=== PATIENT | female | born 1945 | race Caucasian/White ===

== ENCOUNTER → 2019-10-23 15:47 | Outpatient (BNVA) | payer MEDICARE, MEDICAID, SELFPAY | PROVIDERS: Family Provider Nurse Practitioner Family; PCP Nurse Practitioner Family; Visit Provider Nurse Practitioner Family | DX: J01.90 Acute sinusitis, unspecified (principal); R05 Cough | CPT/HCPCS: 87804 ==

== ENCOUNTER → 2019-12-01 11:03 | Outpatient (BNVA) | payer MEDICARE, MEDICAID, SELFPAY | PROVIDERS: Family Provider Nurse Practitioner Family; Visit Provider Nurse Practitioner Family | DX: E11.9 Type 2 diabetes mellitus without complications (principal); I10 Essential (primary) hypertension; J30.89 Other allergic rhinitis; K21.9 Gastro-esophageal reflux disease without esophagitis; E78.2 Mixed hyperlipidemia; J30.2 Other seasonal allergic rhinitis | CPT/HCPCS: 80053; 80061; 83036; 84443; 85025 ==

== ENCOUNTER → 2020-03-16 17:15 | Outpatient (BNVA) | payer MEDICARE, MEDICAID, SELFPAY | PROVIDERS: Family Provider Nurse Practitioner Family; PCP Nurse Practitioner Family; Visit Provider Nurse Practitioner Family | DX: M54.9 Dorsalgia, unspecified (principal); R10.9 Unspecified abdominal pain; I10 Essential (primary) hypertension | CPT/HCPCS: 80053; 80061; 84443; 85025 ==

== ENCOUNTER → 2020-03-17 13:36 | Outpatient (BNVA) | payer MEDICARE, MEDICAID, SELFPAY | PROVIDERS: Family Provider Nurse Practitioner Family; PCP Nurse Practitioner Family; Visit Provider Nurse Practitioner Family | DX: R10.9 Unspecified abdominal pain (principal) | CPT/HCPCS: 87338 ==

== ENCOUNTER → 2020-09-06 09:59 | Outpatient (BNVA) | payer MEDICARE, MEDICAID, SELFPAY | PROVIDERS: Family Provider Nurse Practitioner Family; PCP Nurse Practitioner Family; Visit Provider Nurse Practitioner Family | DX: M25.551 Pain in right hip (principal); M54.5 Low back pain; M53.3 Sacrococcygeal disorders, not elsewhere classified | CPT/HCPCS: 72100; 72220; 73502 ==

== ENCOUNTER → 2020-10-27 08:25 | Outpatient (BNVA) | payer MEDICARE, MEDICAID, SELFPAY | PROVIDERS: Family Provider Nurse Practitioner Family; PCP Nurse Practitioner Family; Visit Provider Nurse Practitioner Family | DX: R73.09 Other abnormal glucose (principal); I10 Essential (primary) hypertension; E78.2 Mixed hyperlipidemia | CPT/HCPCS: 80053; 80061; 83036; 85025 ==

== ENCOUNTER → 2021-01-16 12:22 | Outpatient (BNVA) | payer MEDICARE, MEDICAID, SELFPAY | PROVIDERS: Family Provider Nurse Practitioner Family; PCP Nurse Practitioner Family; Visit Provider Internal Medicine Cardiovascular Disease | DX: I50.33 Acute on chronic diastolic (congestive) heart failure (principal); R06.02 Shortness of breath; E78.2 Mixed hyperlipidemia; I25.10 Atherosclerotic heart disease of native coronary artery without angina pectoris; I10 Essential (primary) hypertension | CPT/HCPCS: 80048; 83880 ==

== ENCOUNTER 2021-02-07 15:01 | Outpatient (CLI) | payer MEDICARE, MEDICAID, SELFPAY ==
--- NOTE | 2021-02-07 15:45 | USCV_ITS ---
Rigoberto Archana Age: 76 Gender: F : 1945 Exam Date: 02/07/2021 15:18 Ordering Phys: So Luciano MD ([email or web address]) Technologist: Nelida Deleon Exam Location: [facility] [place] Indication: CHEST PAIN BP: / HR: 74 Rhythm: Sinus Technical Quality: Adequate MEASUREMENTS (Male / Female) Normal Values 2D ECHO LV Diastolic Diameter PLAX 2.7 cm 4.2 - 5.9 / 3.9 - 5.3 cm LV Systolic Diameter PLAX 2.1 cm LV Chamber Size 2.8 cm IVS Diastolic Thickness 1.3 cm 0.6 - 1.0 / 0.6 - 0.9 cm IVS Systolic Thickness 1.3 cm LVPW Diastolic Thickness 1.4 cm 0.6 - 1.0 / 0.6 - 0.9 cm LVPW Systolic Thickness 2.1 cm RV Chamber Size 2.9 cm LVOT Diameter 2.0 cm LV Ejection Fraction 2D Teich 50.0 % LV Ejection Fraction MOD 2C 49.6 % LV Ejection Fraction 2C AL 48.9 % LA Diameter 2.8 cm LA Width 2.8 cm LA Height 4.0 cm RA Width 3.2 cm RA Height 3.1 cm M-MODE LV Diastolic Diameter MM 4.3 cm 4.2 - 5.9 / 3.9 - 5.3 cm LV Systolic Diameter MM 2.6 cm LV Ejection Fraction MM Teich 70.8 % IVS Diastolic Thickness MM 0.9 cm 0.6 - 1.0 / 0.6 - 0.9 cm IVS Systolic Thickness MM 1.7 cm LVPW Diastolic Thickness MM 1.0 cm 0.6 - 1.0 / 0.6 - 0.9 cm LVPW Systolic Thickness MM 1.6 cm Aortic Annulus Diameter 2.0 cm LA Ao Ratio MM 1.6 MV E Point Septal Separation 0.9 cm DOPPLER AV Peak Velocity 211.0 cm/s LVOT Peak Velocity 122.0 cm/s AV Area Cont Eq vti 2.1 cm squared AV Area Cont Eq pk 1.9 cm squared MV Area PHT 3.7 cm squared Mitral E to A Ratio 0.7 MV E' Velocity 41.0 cm/s Mitral E to MV E' Ratio 11.7 Mitral E to LV E' Lateral Ratio 10.6 Mitral E to LV E' Septal Ratio 13.2 TR Peak Velocity 157.3 cm/s TR Peak Gradient 9.9 mmHg TV Peak E Velocity 65.0 cm/s Right Atrial Pressure 3.0 mmHg Pulmonary Artery Systolic Pressu 12.9 mmHg PV Peak Velocity 86.0 cm/s RV Acceleration Time 0.1 s RV Ejection Time 0.3 s RV AcT/ET 0.5 FINDINGS Left Ventricle Normal left ventricular size and systolic function, EF 56 %. No regional wall motion abnormalities. Grade I/IV diastolic dysfunction (abnormal relaxation filling pattern), normal to mildly elevated filling pressures. Mild concentric left ventricular hypertrophy Right Ventricle Normal right ventricular size and systolic function. Right Atrium The right atrium is normal in size. Left Atrium The left atrium is normal in size. Mitral Valve No gross abnormalities noted Aortic Valve Aortic valve leaflets could not be visualized well. The peak velocity aortic valve is 2.24 m/s Tricuspid Valve No gross abnormalities noted Pulmonic Valve Pulmonic valve not well visualized. Pericardium Normal pericardium without effusion. Aorta Normal ascending aorta dimension. CONCLUSIONS Normal left ventricular size and systolic function, EF 56 %. No regional wall motion abnormalities. Grade I/IV diastolic dysfunction (abnormal relaxation filling pattern), normal to mildly elevated filling pressures. Mild concentric left ventricular hypertrophy The peak velocity aortic valve is 2.24 m/s. No significant stenotic or regurgitant lesions. There is no pericardial effusion. There are no intracardiac masses. Pulmonary artery systolic pressure is within normal limits. Compared to the study from 01/15/2019, the aortic valve appears to have replaced Dr So Luciano MD FAC (Electronically Signed) Final Date: 13 Feb 2021 09:04 S
== END 2021-02-07 15:02 | disposition home or self-care (01) ==
PROVIDERS: PCP Nurse Practitioner Family; Visit Provider Internal Medicine Cardiovascular Disease
DX: R07.89 Other chest pain (principal)
CPT/HCPCS: 93306

== ENCOUNTER → 2021-03-20 09:38 | Outpatient (BNVA) | payer MEDICARE, MEDICAID, SELFPAY | PROVIDERS: PCP Nurse Practitioner Family; Visit Provider Nurse Practitioner Family | DX: I10 Essential (primary) hypertension (principal); E11.9 Type 2 diabetes mellitus without complications; E78.2 Mixed hyperlipidemia; F41.9 Anxiety disorder, unspecified; R06.02 Shortness of breath; J30.2 Other seasonal allergic rhinitis; K21.9 Gastro-esophageal reflux disease without esophagitis | CPT/HCPCS: 80053; 80061; 82043; 83036; 84443; 85025 ==

== ENCOUNTER → 2021-05-03 11:31 | Outpatient (BNVA) | payer MEDICARE, MEDICAID, SELFPAY | PROVIDERS: PCP Nurse Practitioner Family; Visit Provider Nurse Practitioner Family | DX: Z20.822 Contact with and (suspected) exposure to COVID-19 (principal); R59.1 Generalized enlarged lymph nodes | CPT/HCPCS: 87635 ==

== ENCOUNTER → 2021-07-04 10:11 | Outpatient (BNVA) | payer MEDICARE, MEDICAID, SELFPAY | PROVIDERS: PCP Nurse Practitioner Family; Visit Provider Nurse Practitioner Family | DX: E11.9 Type 2 diabetes mellitus without complications (principal); F41.9 Anxiety disorder, unspecified; J30.2 Other seasonal allergic rhinitis; E78.2 Mixed hyperlipidemia; I10 Essential (primary) hypertension; K21.9 Gastro-esophageal reflux disease without esophagitis; B37.3 Candidiasis of vulva and vagina | CPT/HCPCS: 80053; 80061; 83036; 84443; 85025 ==

== ENCOUNTER → 2021-10-09 17:12 | Outpatient (BNVA) | payer MEDICARE, MEDICAID, SELFPAY | PROVIDERS: PCP Nurse Practitioner Family; Visit Provider Nurse Practitioner Family | DX: Z20.822 Contact with and (suspected) exposure to COVID-19 (principal); R05.9 Cough, unspecified; J40 Bronchitis, not specified as acute or chronic | CPT/HCPCS: 87635 ==

== ENCOUNTER → 2021-10-31 10:52 | Outpatient (BNVA) | payer MEDICARE, MEDICAID, SELFPAY | PROVIDERS: PCP Nurse Practitioner Family; Visit Provider Nurse Practitioner Family | DX: E11.9 Type 2 diabetes mellitus without complications (principal); F41.9 Anxiety disorder, unspecified; J30.2 Other seasonal allergic rhinitis; E78.2 Mixed hyperlipidemia; I10 Essential (primary) hypertension; K21.9 Gastro-esophageal reflux disease without esophagitis; Z79.899 Other long term (current) drug therapy | CPT/HCPCS: 80053; 80061; 82306; 83036; 84443; 85025 ==

== ENCOUNTER → 2022-01-16 12:59 | Outpatient (BNVA) | payer MEDICARE, MEDICAID, SELFPAY | PROVIDERS: PCP Nurse Practitioner Family; Visit Provider Internal Medicine Cardiovascular Disease | DX: R07.89 Other chest pain (principal); I11.0 Hypertensive heart disease with heart failure; I50.33 Acute on chronic diastolic (congestive) heart failure; I25.10 Atherosclerotic heart disease of native coronary artery without angina pectoris | CPT/HCPCS: 99214 ==

== ENCOUNTER 2022-02-07 08:47 | Outpatient (CLI) | payer MEDICARE, MEDICAID, SELFPAY ==
--- NOTE | 2022-02-07 09:30 | USCV_ITS ---
Archana Franklin Age: 77 Gender: F : 1945 Exam Date: 02/07/2022 09:15 Ordering Phys: So Luciano MD ([email or web address]) Technologist: [place] [facility] [place]: ao pros BP: 137 / 76 HR: 54 Rhythm: Sinus Technical Quality: MEASUREMENTS (Male / Female) Normal Values 2D ECHO LV Diastolic Diameter PLAX 2.6 cm 4.2 - 5.9 / 3.9 - 5.3 cm LV Systolic Diameter PLAX 1.8 cm IVS Diastolic Thickness 0.9 cm 0.6 - 1.0 / 0.6 - 0.9 cm IVS Systolic Thickness 1.3 cm LVPW Diastolic Thickness 1.2 cm 0.6 - 1.0 / 0.6 - 0.9 cm LVPW Systolic Thickness 1.5 cm LVOT Diameter 2.0 cm LV Ejection Fraction 2D Teich 59.8 % LV Ejection Fraction MOD 2C 69.2 % LV Ejection Fraction 2C AL 69.3 % LA Diameter 3.2 cm M-MODE Aortic Annulus Diameter 2.1 cm LA Ao Ratio MM 1.6 MV E Point Septal Separation 0.8 cm DOPPLER AV Peak Velocity 128.3 cm/s LVOT Peak Velocity 91.0 cm/s AV Area Cont Eq vti 3.0 cm squared AV Area Cont Eq pk 2.2 cm squared MV Area PHT 5.0 cm squared Mitral E to A Ratio 0.8 MV E' Velocity 47.5 cm/s Mitral E to MV E' Ratio 15.8 Mitral E to LV E' Lateral Ratio 11.4 Mitral E to LV E' Septal Ratio 26.2 TR Peak Velocity 205.7 cm/s TR Peak Gradient 16.9 mmHg TV Peak E Velocity 128.0 cm/s Right Atrial Pressure 3.0 mmHg Pulmonary Artery Systolic Pressu 19.9 mmHg PV Peak Velocity 87.0 cm/s FINDINGS Left Ventricle Normal left ventricular size and systolic function, EF 68 %. No regional wall motion abnormalities. Grade I/IV diastolic dysfunction (abnormal relaxation filling pattern), normal to mildly elevated filling pressures. Right Ventricle The right ventricle is normal in size and function. Right Atrium The right atrium is normal in size. Left Atrium The left atrium is normal in size. Mitral Valve Mild mitral valve regurgitation. Aortic Valve The bioprosthesis at the aortic position appears to be well- seated. No significant gradient across this valve. Peak velocity of 1.28 m/s Tricuspid Valve No tricuspid valve regurgitation. Estimated pulmonary artery peak systolic pressure 20 mmHg Pulmonic Valve Pulmonic valve not well visualized. Pericardium Normal pericardium without effusion. Aorta Normal ascending aorta dimension. CONCLUSIONS Normal left ventricular size and systolic function, EF 68 %. No regional wall motion abnormalities. Grade I/IV diastolic dysfunction (abnormal relaxation filling pattern), normal to mildly elevated filling pressures. The bioprosthesis at the aortic position appears to be well- seated. No significant gradient across this valve. Peak velocity of 1.28 m/s. No tricuspid valve regurgitation. Estimated pulmonary artery peak systolic pressure 20 mmHg. Mild mitral valve regurgitation. There is no pericardial effusion. Compared to the previous study from 02/07/2021, there may not be significant change. Dr So Luciano MD [facility] (Electronically Signed) Final Date: 12 Feb 2022 09:20 S
== END 2022-02-07 08:48 | disposition home or self-care (01) ==
LOC: RAD 08:52
PROVIDERS: PCP Nurse Practitioner Family; Visit Provider Internal Medicine Cardiovascular Disease
DX: I51.7 Cardiomegaly (principal); R06.00 Dyspnea, unspecified; Z95.2 Presence of prosthetic heart valve
CPT/HCPCS: 93306

== ENCOUNTER → 2022-02-16 09:30 | Outpatient (BNVA) | payer MEDICARE, MEDICAID, SELFPAY | PROVIDERS: PCP Nurse Practitioner Family; Visit Provider Nurse Practitioner Family | DX: E11.9 Type 2 diabetes mellitus without complications (principal); E55.9 Vitamin D deficiency, unspecified; K21.9 Gastro-esophageal reflux disease without esophagitis; F41.9 Anxiety disorder, unspecified; J30.2 Other seasonal allergic rhinitis; E78.2 Mixed hyperlipidemia; I10 Essential (primary) hypertension | CPT/HCPCS: 80053; 80061; 82306; 82607; 83036; 84443; 85025 ==

== ENCOUNTER 2022-02-27 10:56 | Emergency (ER) | payer MEDICARE, MEDICAID, SELFPAY ==
[2022-02-27 11:03] VITALS: BP 192/74; PULSE 64; RESP 18; TEMP 36.6; O2SAT 97; BMI 36.3
--- NOTE | 2022-02-27 11:34 | USCV_ITS ---
Archana Franklin Age: 77 Gender: F : 1945 Exam Date: 02/27/2022 11:47 Ordering Phys: Praneeth Stein MD Technologist: MELISA [place] [facility] [place]: LLE PAIN AND SWELLING HISTORY: Lower extremity swelling. Lower extremity pain. PROCEDURES: Venous duplex imaging was performed in only the left lower extremity. The following venous structures were evaluated: common femoral vein, profunda vein, proximal portion of the greater saphenous vein, superficial femoral vein, and the popliteal vein. In addition, the posterior tibial and peroneal trunk were evaluated. Serial compression, augmentation maneuvers, and spectral Doppler flow evaluation were performed. FINDINGS: + DVT seen in left PTV and Peroneal Veins. All Other veins appear patent CONCLUSIONS DVT in left posterior tibial and peroneal veins Remainder LLE veins patent Fidel Rebolledo MD (Electronically Signed) Final Date: 27 Feb 2022 12:06 S
--- NOTE | 2022-02-27 11:43 | ED_ITS ---
HPI - General Adult General: Chief complaint: Extremity Injury, Lower Stated complaint: Knot in left leg, Darrell sent Time Seen by Provider: 02/27/22 11:25 History of Present Illness: Patient is a 77-year-old female with a history of hypertension, anxiety, fatty liver disease presenting to the emergency room for evaluation of left calf not in pain. Patient describes a palpable knot in the left leg that has gotten bigger and painful to palpation. Patient says that she first noticed the pain about 2 weeks ago but now has worsened. Patient also noticed swelling the left leg. Earlier today, patient went to see Dr. Ramírez was told to come to the emergency room for evaluation of blood clot. Patient denies any shortness breath, chest pain, palpitation nausea/vomiting, abdominal complaints, complaints at this time. No other focal complaints. Onset:2 weeks ago Duration:2 weeks Location:L leg Severity:moderate Associated symptoms: Deny chest pain, dyspnea, nausea, rash, palpitations or vomiting Review of Systems Const: Denies: fever(s) or chills Eyes: Denies: change in vision ENMT: Denies: mouth pain Card: Denies: chest pain or palpitations Resp: Denies: dyspnea or non-productive cough GI: Denies: abdominal pain, nausea, vomiting or diarrhea : Denies: dysuria Musc: Reports: extremity pain (+L leg knot and pain) Skin/Breast: Denies: rash or new lesions Neuro: Denies: weakness in extremities Psych: Reports: other (Normal mood) Cash/Lymph: Denies: easy bruising PFS ED PFSH: Medical History Adnexal cyst Anxiety feels controlled with meds Aortic heart murmur Arteriosclerotic heart disease (ASHD) Encounter for counseling for care management of patient with chronic conditions and complex health needs using nurse-based model Enrolled in chronic care management Essential (primary) hypertension Fatty infiltration of liver Gastro-esophageal reflux disease without esophagitis Left leg swelling Mixed hyperlipidemia Obesity, unspecified BMI 30.0-34.9 Seasonal allergies Type 2 diabetes mellitus without complications Surgical History H/O aortic valve replacement TAVR Hx of angioplasty stent's x 3 Hx of appendectomy Hx of cholecystectomy Hx of hysterectomy S/P knee surgery X2 Family History Family/Other No pertinent family history Lung disease Brother CAD (coronary artery disease) Mother Dementia Stroke Sister Diabetes Father Suicide Denies family history of Clotting disorder Chronic kidney disease (CKD) Anesthesia complication Bleeding disorder Cancer Social History Smoking and tobacco status: never smoked Second hand smoke exposure: No Alcohol intake: never Adopted: No Caregiver/support person: Yes (family) Lives independently: Yes Household members: none Housing: House Marital status: / Number of children: 3 service: No Current occupational status: retired History of recent travel: No Current gender identity: Female Rosi/Yazidism: Sikhism Special rosi needs: No Agree to transfusion: Yes Physical Exam Const: COMMON NORMALS: alert HENMT: COMMON NORMALS: atraumatic HEAD & SCALP: atraumatic MOUTH: moist mucous membranes not abnormal Eye: COMMON NORMALS: EOMs intact bilaterally and conjunctivae normal CONJU NCTIVA: Yes conjunctivae normal Neck/C-Spine: COMMON NORMALS: full ROM and supple Resp: COMMON NORMALS: normal respiratory effort and clear to auscultation bilaterally AUSCULTATION: clear to auscultation bilaterally Cardio: COMMON NORMALS: regular rate RATE: regular rate GI: COMMON NORMALS: Soft to palpation and non-tender PALPATION: Yes Soft to palpation Extremity: COMMON NORMALS: full ROM NARRATIVE EXTREMITY EXAM: + Neurovascular exam intact in the left lower extremity, cap refill less than 3 seconds, 2+ DP/PT pulses on the affected treatment, mild palpable mid medial calf tenderness palpation with muscle tightness Neuro: SENSORIUM/ORIENTATION: Yes alert MOTOR EXAM: No Abnormal motor strength present and Other motor observations present (no focal motor deficits) Psych: COMMON NORMALS: speech normal SPEECH: Yes normal speech MOOD & AFFECT: Yes euthymic mood Course Vital Signs: Vital signs: Vital Signs Temperature 98 F 02/27/22 11:03 Pulse Rate 64 02/27/22 11:03 Respiratory Rate 18 02/27/22 11:03 Blood Pressure 192/74 02/27/22 11:03 Pulse Oximetry 97 02/27/22 11:03 MDM - General Adult Medical Decision Making 77-year-old female with history of anxiety, hypertension, fatty liver disease presenting to the emergency room for evaluation of left inner thigh pain and palpable knot with swelling. Neurovascular exam of the affected extremity intact. No Homans' sign. Compartments of the R tib/fib to be soft. Ultrasound showed PTV DVT. Patient received lidocaine and Tylenol with improvement in pain. I have given patient close follow-up with primary care provider for further evaluation of symptoms. Patient received first dose of elqiuis 10mg in the ED. Rx: Tylenol, lidocaine patch, and menthol PRN pain, eliquis for DVT Disposition: Discharge. Patient counseled regarding diagnostic impression, treatment plan. Patient given ED strict return precautions to return for continuation, worsening, or development of new symptoms. Instructed to f/u w/ PCP regarding symptoms today. Patient verbalized understanding. Imaging Data Other Imaging: Radiologist's impression: [address] [address] Ultrasound Report Signed Patient: Archana Franklin Unit #: [id number] : 1945 Age/Sex: 77 / F ADM Date: 02/27/22 Loc: ER Room/Bed: Attending Dr: Ordering Provider/Ordering MD: Praneeth Stein MD Date of Service: 02/27/22 Procedure(s): [place] [address] Accession Number(s): [id number] Report Number: [id number] ?Archana Franklin ?Age:? ? 77 ? ? Gender: ? ? F ?:? ? 1945 ?Exam Date: ? ? 02/27/2022 11:47 ?Ordering Phys: ? ? Praneeth Stein? ?Technologist:? ? ? KB ?Exam Location:? ? ? [facility] [place] ?MRN:? ? [id number] ?Account Number: ? ? ? [id number] ?Indication:? ? ? LLE PAIN AND SWELLING ?HISTORY: ?Lower extremity swelling. Lower extremity pain. ?PROCEDURES: ?Venous duplex imaging was performed in only the left lower ?extremity. ?The following venous structures were evaluated: common femoral ?vein, profunda vein, proximal portion of the greater saphenous ?vein, superficial femoral vein, and the popliteal vein. ?In addition, the posterior tibial and peroneal trunk were ?evaluated. ?Serial compression, augmentation maneuvers, and spectral Doppler ?flow evaluation were performed. ?FINDINGS: ?+ DVT seen in left PTV and Peroneal Veins. All Other veins ?appear patent ?CONCLUSIONS ?DVT in left posterior tibial and peroneal veins ?Remainder LLE veins patent ?Fidel Rebolledo MD ?(Electronically Signed) ?Final Date:? ? ? 27 Feb 2022 12:06 S Discharge Plan Discharge Patient Disposition: Home Clinical Impression: Left leg pain, DVT (deep venous thrombosis) Condition: Stable Prescriptions: New acetaminophen 500 mg tablet 500 mg PO Q6H PRN (Reason: pain) 5 Days Qty: 20 0RF Biofreeze (menthol) 5 % gel 1 ea topical BID PRN (Reason: pain) 10 Days Qty: 1 0RF lidocaine 5 % adhesive patch,medicated 1 patch topical DAILY PRN (Reason: pain) 30 Days Qty: 30 0RF Rx Instructions: leave on most painful area for up to 12 hrs Eliquis DVT-PE Treat 30D Start 5 mg (74 tabs) tablets,dose pack 5 mg PO BID Qty: 74 0RF No Action zinc 50 mg tablet 50 mg PO DAILY 0RF nitroglycerin [Nitrostat] 0.4 mg tablet, sublingual 0.4 mg SUBLINGUAL Q5M PRN0RF vitamin E 200 unit capsule 400 unit PO DAILY 0RF omega-3 fatty acids [Fish Oil Concentrate] 1,000 mg capsule 1,000 mg PO DAILY 0RF multivitamin [Daily Multi-Vitamin] Tablet 1 tab PO QAM 0RF calcium carbonate 600 mg calcium (1,500 mg) tablet 1,500 mg PO DAILY 0RF polyethylene glycol 3350 [Miralax] 17 gram/dose powder 17 gm PO DAILY PRN (Reason: constipation) Qty: 255 1RF mecobalamin (vitamin B12) 1,000 mcg tablet,chewable 1,000 mcg PO DAILY 0RF loratadine 10 mg tablet See Rx Instructions .ROUTE .COMPLEX Qty: 90 3RF Dose Instruction: TAKE ONE TABLET BY MOUTH EVERY DAY Rx Instructions: TAKE ONE TABLET BY MOUTH EVERY DAY omeprazole 20 mg capsule,delayed release(DR/EC) See Rx Instructions .ROUTE .COMPLEX Qty: 90 1RF Dose Instruction: TAKE ONE CAPSULE BY MOUTH DAILY Rx Instructions: TAKE ONE CAPSULE BY MOUTH DAILY clonazepam 0.5 mg tablet 0.5 mg PO BID PRN (Reason: anxiety) Qty: 60 2RF potassium chloride 8 mEq tablet extended release See Rx Instructions .ROUTE .COMPLEX Qty: 90 3RF Dose Instruction: TAKE ONE TABLET BY MOUTH DAILY As Needed, with furosemide Rx Instructions: TAKE ONE TABLET BY MOUTH DAILY As Needed, with furosemide losartan 100 mg tablet See Rx Instructions .ROUTE .COMPLEX Qty: 90 3RF Dose Instruction: TAKE ONE TABLET BY MOUTH DAILY Rx Instructions: TAKE ONE TABLET BY MOUTH DAILY atorvastatin 80 mg tablet See Rx Instructions .ROUTE .COMPLEX Qty: 90 3RF Dose Instruction: TAKE ONE TABLET BY MOUTH DAILY Rx Instructions: TAKE ONE TABLET BY MOUTH DAILY clopidogrel 75 mg tablet See Rx Instructions .ROUTE .COMPLEX Qty: 90 1RF Dose Instruction: TAKE ONE TABLET BY MOUTH EVERY DAY Rx Instructions: TAKE ONE TABLET BY MOUTH EVERY DAY furosemide [Lasix] 20 mg tablet 20 mg PO DAILY PRN (Reason: edema) Qty: 90 3RF metoprolol tartrate 50 mg tablet 50 mg PO BID Qty: 180 3RF Discharge Orders: Discharge ED (Routine); Ordered 02/27/22 Ordered By: Praneeth Stein Referrals: Angela Dennis FNP [Primary Care Provider] - Discharge Diet: Advance as tolerated Discharge Activity: Increase activity as tolerated Patient Instructions: Leg Pain (ED) Activity Restrictions/Additional Instructions: Come back to the emergency room for leg pain, fever/chills, worsening swelling, or any new concerning complaints. Coding Level of Care Code ED Butadiene Convertor Operator for Morris Ramos Exam Comprehensive
[2022-02-27] MEDS: lidocaine 5% Patch 1 PATCH TOPICAL (12:16)
[2022-02-27] MEDS: acetaminophen 500 mg Tablet PO (12:16)
[2022-02-27] MEDS: apixaban 5 mg Tablet 10 MG PO (12:20)
== END 2022-02-27 13:02 | disposition home or self-care (01) ==
PROVIDERS: Emergency Provider Emergency Medicine; PCP Nurse Practitioner Family
DX: I82.4Z2 Acute embolism and thrombosis of unspecified deep veins of left distal lower extremity (principal); M79.605 Pain in left leg
CPT/HCPCS: 93971; 99283

== ENCOUNTER → 2022-05-14 14:01 | Outpatient (BNVA) | payer MEDICARE, MEDICAID, SELFPAY | PROVIDERS: PCP Nurse Practitioner Family; Visit Provider Nurse Practitioner Family | DX: R19.7 Diarrhea, unspecified (principal); R14.0 Abdominal distension (gaseous); K59.00 Constipation, unspecified | CPT/HCPCS: 74018; 80053; 85025 ==

== ENCOUNTER → 2022-05-23 10:11 | Outpatient (BNVA) | payer MEDICARE, MEDICAID, SELFPAY | PROVIDERS: PCP Nurse Practitioner Family; Visit Provider Family Medicine | DX: M79.89 Other specified soft tissue disorders (principal); Z09 Encounter for follow-up examination after completed treatment for conditions other than malignant neoplasm; I82.409 Acute embolism and thrombosis of unspecified deep veins of unspecified lower extremity; R60.9 Edema, unspecified; J02.9 Acute pharyngitis, unspecified | CPT/HCPCS: 87071; 87880 ==

== ENCOUNTER → 2022-06-05 10:58 | Outpatient (BNVA) | payer MEDICARE, MEDICAID, SELFPAY | PROVIDERS: PCP Nurse Practitioner Family; Visit Provider Nurse Practitioner Family | DX: Z11.52 Encounter for screening for COVID-19 (principal); Z20.822 Contact with and (suspected) exposure to COVID-19 | CPT/HCPCS: 87426 ==

== ENCOUNTER → 2022-06-25 10:36 | Outpatient (BNVA) | payer MEDICARE, MEDICAID, SELFPAY | PROVIDERS: PCP Nurse Practitioner Family; Visit Provider Nurse Practitioner Family | DX: R19.7 Diarrhea, unspecified (principal); R06.02 Shortness of breath | CPT/HCPCS: 83630; 87493; 87506 ==

== ENCOUNTER → 2022-07-12 13:41 | Outpatient (BNVA) | payer MEDICARE, MEDICAID, SELFPAY | PROVIDERS: PCP Nurse Practitioner Family; Visit Provider Internal Medicine Cardiovascular Disease | DX: I25.10 Atherosclerotic heart disease of native coronary artery without angina pectoris (principal); Z95.2 Presence of prosthetic heart valve; E78.2 Mixed hyperlipidemia; I10 Essential (primary) hypertension; I82.409 Acute embolism and thrombosis of unspecified deep veins of unspecified lower extremity; Z79.01 Long term (current) use of anticoagulants | CPT/HCPCS: 99214 ==

== ENCOUNTER → 2022-10-23 14:05 | Outpatient (BNVA) | payer MEDICARE, MEDICAID, SELFPAY | PROVIDERS: PCP Nurse Practitioner Family; Visit Provider Nurse Practitioner Family | DX: J06.9 Acute upper respiratory infection, unspecified (principal); R05.9 Cough, unspecified | CPT/HCPCS: 71046; 80053; 80061; 83036 ==

== ENCOUNTER → 2022-11-29 14:24 | Outpatient (BNVA) | payer MEDICARE, MEDICAID, SELFPAY | PROVIDERS: PCP Nurse Practitioner Family; Visit Provider Internal Medicine Cardiovascular Disease | DX: Z95.2 Presence of prosthetic heart valve (principal); I25.10 Atherosclerotic heart disease of native coronary artery without angina pectoris; I10 Essential (primary) hypertension; E78.2 Mixed hyperlipidemia; R25.2 Cramp and spasm | CPT/HCPCS: 99214 ==

== ENCOUNTER → 2023-02-05 09:39 | Outpatient (BNVA) | payer MEDICARE, MEDICAID, SELFPAY | PROVIDERS: PCP Nurse Practitioner Family; Visit Provider Nurse Practitioner Family | DX: E55.9 Vitamin D deficiency, unspecified (principal); E11.9 Type 2 diabetes mellitus without complications; F41.9 Anxiety disorder, unspecified; I10 Essential (primary) hypertension; K21.9 Gastro-esophageal reflux disease without esophagitis; M79.661 Pain in right lower leg; M79.662 Pain in left lower leg; W57.XXXA Bitten or stung by nonvenomous insect and other nonvenomous arthropods, initial encounter | CPT/HCPCS: 80053; 80061; 82306; 82607; 83036; 84443; 85025 ==

== ENCOUNTER 2023-02-22 08:19 | Outpatient (CLI) | payer MEDICARE, SELFPAY ==
--- NOTE | 2023-02-22 08:15 | USCV_ITS ---
Archana Franklin Age: 78 Gender: F : 1945 Exam Date: 02/22/2023 08:45 Ordering Phys: Angela Dennis KRAFT MILL OPERATOR KRAFT MILL OPERATOR Technologist: Avelina Alejandra [place] [facility] [place]: History of DVT in Lt leg HISTORY: History of DVT in Lt Leg. Now blunt injury in Rt lower leg. PROCEDURES: The venous duplex Doppler examination of both lower extremities was performed in the standard fashion. The following venous structures were evaluated: common femoral vein, profunda vein, proximal portion of the greater saphenous vein, superficial femoral vein, and the popliteal vein. In addition, the posterior tibial and peroneal trunk were evaluated. Bilaterally, the common femoral, superficial femoral, profunda femoral, popliteal, posterior tibial, greater saphenous veins, and the peroneal trunk were identified and interrogated in the standard fashion. These veins were found to be easily compressible with spontaneous blood flow. No evidence of insufficiency or thrombus noted. Serial compression, augmentation maneuvers, and spectral Doppler flow evaluation were performed. FINDINGS: Normal 2-D Doppler and augmentation and compressibility throughout the lower extremity venous structures. Additional imaging through the proximal calf veins also reveals no thrombus. Limited evaluation of the greater saphenous vein is patent with no thrombus. Firm area rt lower leg is hematoma. CONCLUSIONS No evidence of right lower extremity DVT. No evidence of left lower extremity DVT. Area of concern right lower leg is hematoma Fidel Rebolledo MD (Electronically Signed) Final Date: 22 Feb 2023 10:50 S
== END 2023-02-22 08:20 | disposition home or self-care (01) ==
PROVIDERS: PCP Nurse Practitioner Family; Visit Provider Nurse Practitioner Family
DX: M79.661 Pain in right lower leg (principal); M79.662 Pain in left lower leg; S80.11XA Contusion of right lower leg, initial encounter; X58.XXXA Exposure to other specified factors, initial encounter
CPT/HCPCS: 93970

== ENCOUNTER → 2023-02-25 16:18 | Outpatient (BNVA) | payer MEDICARE, MEDICAID, SELFPAY | PROVIDERS: PCP Nurse Practitioner Family; Visit Provider Nurse Practitioner Family | DX: R50.9 Fever, unspecified (principal); W57.XXXA Bitten or stung by nonvenomous insect and other nonvenomous arthropods, initial encounter | CPT/HCPCS: 80053; 85025; 86618; 86666; 86757; 87426 ==

== ENCOUNTER 2023-03-20 17:01 | Emergency (ER) | payer MEDICARE, MEDICAID, SELFPAY ==
[2023-03-20 17:01] VITALS: BP 219/86; PULSE 73; RESP 24; TEMP 36.9; O2SAT 96; BMI 36.3
--- NOTE | 2023-03-20 17:14 | ECG_ITS ---
[facility] Test Date: 2023-03-20 Pat Name: Archana Franklin Department: Room: Gender: Female Palliative Care Nurse: : 1945 Requested By: Adolph Stinson Order Number: [id number] Koko MD: Ed Rios M.D. Measurements Intervals Weed Rate: 73 P: 48 ME: 225 QRS: 16 QRSD: 148 T: 178 QT: 439 QTc: 484 Interpretive Statements SINUS RHYTHM WITH FIRST DEGREE AV BLOCK LEFT BUNDLE BRANCH BLOCK [120+ ms QRS DURATION, 80+ ms Q/S IN V1/V2, 85+ ms R IN I/aVL/V5/V6] Compared to ECG 06/30/2017 13:09:38 First degree AV block now present Left bundle-branch block now present Left ventricular hypertrophy no longer present Electronically Signed On 03-20-2023 18:18:08 CDT by Ed Rios M.D. [id number]
--- NOTE | 2023-03-20 17:33 | W.ED.SOB ---
HPI - SOB/Dyspnea General: Chief Complaint: Shortness of Breath/Dyspnea Stated Complaint: SOB Time Seen by Provider: 03/20/23 17:04 History of Present Illness: HPI Narrative: Patient presents to the ER by EMS with complaints of shortness of breath. Patient is also had some nausea. Patient was given 4 mg Zofran on route and 100 mcg of fentanyl. Patient complains of hurting all over. Patient was given albuterol treatment at the clinic with no relief. Patient is currently on Eliquis. Patient does have a history of atherosclerotic heart disease, aortic valve replacement, angioplasty stents x3. MD elicited complaint: shortness of breath Pertinent past history: congestive heart failure Onset (ago): day(s) Timing: constant Severity: mild Exacerbating factors: exertion Relieving factors: oxygen Known history of: congestive heart failure Associated symptoms: Reports no associated symptoms Treatment prior to arrival: oxygen and bronchodilator Review of Systems General: Reports: 10 or more systems reviewed and unremarkable except in HPI and below PFSH ED PFSH: Medical History Adnexal cyst Anxiety feels controlled with meds Aortic heart murmur Arteriosclerotic heart disease (ASHD) Encounter for counseling for care management of patient with chronic conditions and complex health needs using nurse-based model Enrolled in chronic care management Essential (primary) hypertension Fatty infiltration of liver Gastro-esophageal reflux disease without esophagitis Left leg swelling Mixed hyperlipidemia Obesity, unspecified BMI 30.0-34.9 Seasonal allergies Type 2 diabetes mellitus without complications Surgical History H/O aortic valve replacement TAVR Hx of angioplasty stent's x 3 Hx of appendectomy Hx of cholecystectomy Hx of hysterectomy S/P knee surgery X2 Family History Family/Other No pertinent family history Lung disease Brother CAD (coronary artery disease) Mother Dementia Stroke Sister Diabetes Father Suicide Denies family history of Clotting disorder Chronic kidney disease (CKD) Anesthesia complication Bleeding disorder Cancer Social History Smoking and tobacco status: never smoked Second hand smoke exposure: No Alcohol intake: never Substance/Drug Use: never Adopted: No Caregiver/support person: Yes (family) Lives independently: Yes Household members: none Housing: House Marital status: / Number of children: 3 service: No Current occupational status: retired Current gender identity: Female Rosi/J[employer]ah[employer] Witness: [employer] Special rosi needs: No Agree to transfusion: Yes Physical Exam Const: COMMON NORMALS: no acute distress, average body habitus, patient oriented x3, no limitations, healthy appearing, alert and well nourished HENMT: COMMON NORMALS: normocephalic, atraumatic, hearing grossly normal bilaterally, external ears normal, Normal external nose present and moist oral mucous membranes HEAD & SCALP: normocephalic and atraumatic NOSE: Normal external nose present EXTERNAL EAR: Yes external ears normal Eye: COMMON NORMALS: Equal, round and reactive pupils present, EOMs intact bilaterally, conjunctivae normal and no scleral icterus CONJUNCTIVA: Yes conjunctivae normal PUPIL: Yes Equal, round and reactive pupils present Neck/C-Spine: COMMON NORMALS: full ROM, no lymphadenopathy, supple, no meningeal signs, no JVD, Thyroid normal and No carotid bruits THYROID: Thyroid normal Lymph: LYMPHATIC: no lymphadenopathy noted Chest: COMMONS NORMALS: normal inspection of the chest and normal palpation of entire chest wall Resp: COMMON NORMALS: normal respiratory effort, No retractions, No use of accessory muscles and clear to auscultation bilaterally AUSCULTATION: clear to auscultation bilaterally Cardio: COMMON NORMALS: no JVD, regular rate, regular rhythm, S1 normal heart sound present, S2 normal heart sound present, No gallops present (Cardio), No clicks present (Cardio) and No rub (Cardio) RATE: regular rate RHYTHM: regular rhythm HEART SOUNDS: S1 normal heart sound present and S2 normal heart sound present GI: COMMON NORMALS: Normal to inspection, nondistended, normoactive bowel sounds present, Soft to palpation, non-tender, No hepatosplenomegaly present and no masses PALPATION: Yes Soft to palpation and Yes No hepatosplenomegaly present : COMMON NORMALS: Yes no CVA tenderness BLADDER/KIDNEY EXAM: Yes no CVA tenderness Back/Pelvis: COMMON NORMALS: no CVA tenderness Extremity: NARRATIVE EXTREMITY EXAM: 1+ pitting edema bilateral lower extremities Neuro: COMMON NORMALS: patient oriented x3 SENSORIUM/ORIENTATION: Yes alert MENINGEAL SIGNS: Yes no meningeal signs Course Vital Signs: Vital signs: Vital Signs Temperature 98.4 F 06/07/23 17:01 Pulse Rate 72 03/20/23 19:35 Respiratory Rate 13 03/20/23 19:35 Blood Pressure 151/85 03/20/23 19:35 Pulse Oximetry 99 03/20/23 19:35 Oxygen Delivery Me thod Nasal Cannula 03/20/23 19:35 Oxygen Flow Rate 2 03/20/23 19:35 MDM - SOB/Dyspnea Medical Decision Making Patient presents to the ER with generalized weakness and overall pain. Patient says she was bitten by tick approximately 5 weeks ago and started doxycycline approximately 2 weeks ago. All the symptoms started about that same time. Has not resolved with the doxycycline. Lab work was obtained which was essentially benign patient's white count was 7.1, BUN/creatinine was 17 and 0.9, glucose 131, ALT and AST 41 and 38, initial troponin 12, 2-hour troponin 11.42 for -0.5 a delta, urine was a contaminated specimen with lots of squamous epithelial cells. Patient did have an episode of nausea and vomiting where she was given Zofran and Toradol for headache. These labs were discussed with the patient and family and how this may be related to her tickborne illness and that would require further testing by her PCP with send out labs. Patient will be discharged home to follow back up with her PCP Differential Diagnosis Likely congestive heart failure; Unlikely acute exacerbation of chronic obstructive airways disease, community acquired pneumonia, asthma with exacerbation or pulmonary embolism Medical Records I reviewed the patient's medical records. Lab Data I reviewed the patient's lab results. 03/20/23 17:30 03/20/23 17:30 Labs/Radiology: Laboratory Results WBC 7.1 10^3/uL (4.0-10.0) 03/20/23 17:30 RBC 4.25 10^6/uL (4.1-5.3) 03/20/23 17:30 Hgb 13.7 g/dL (11.5-15.3) 03/20/23 17: Hct 42.2 % (37.0-47.0) 03/20/23 17:30 MCV 99.3 fl (81-99) H 03/20/23 17:30 MCH 32.2 pg (28.0-34.0) 03/20/23 17: MCHC 32.5 g/dL (30.0-36.0) 03/20/23 17:30 RDW 12.8 % (12.1-15.1) 03/20/23 17:30 Plt Count 147 10^3/cmm (130-400) 03/20/23 17:30 MPV 12.9 fL (7.4-10.4) H 03/20/23 17:30 Neut % (Auto) 44.5 % 03/20/23 17:30 Lymph % (Auto) 34.8 % 03/20/23 17:30 Barren % (Auto) 16.0 % 03/20/23 17:30 Eos % (Auto) 3.7 % 03/20/23 17:30 Baso % (Auto) 0.7 % 03/20/23 17:30 Neut # (Auto) 3.14 10^3/uL (1.8-7.7) 03/20/23 17:30 Lymph # (Auto) 2.5 10^3/uL (0.8-4.8) 03/20/23 17:30 Barren # (Auto) 1.1 10^3/uL (0.2-0.9) H 03/20/23 17:30 Eos # (Auto) 0.3 10^3/uL (0.0-0.8) 03/20/23 17:30 Baso # (Auto) 0.1 10^3/uL (0.0-0.1) 03/20/23 17:30 Nucleated RBC % (auto) 0 % 03/20/23 17: Nucleated RBCs # 0.0 /100WBC 03/20/23 17:30 Sodium 142 mmol/L (136-145) 03/20/23 17:30 Potassium 4.4 mmol/L (3.5-5.1) 03/20/23 17:30 Chloride 103 mmol/L (98-107) 03/20/23 17:30 Carbon Dioxide 31 mmol/L (22-29) H 03/20/23 17:30 Anion Gap 12.4 (5-19) 03/20/23 17:30 BUN 17 mg/dL (8-23) 03/20/23 17:30 Creatinine 0.9 mg/dL (0.5-0.9) 03/20/23 17:30 GFR Calculation Not Reportable 03/20/23 17:30 Glucose 131 mg/dL (65-115) H 03/20/23 17:30 Calculated Osmolality 297 mOsm/kg (285-295) H 03/20/23 17:30 Calcium 9.4 mg/dL (8.5-10.5) 03/20/23 17:30 Magnesium 1.8 mg/dL (1.7-2.3) 03/20/23 17:30 Total Bilirubin 0.2 mg/dL (0.15-1.2) 03/20/23 17:30 AST 41 U/L (0-32) H 03/20/23 17:30 ALT 38 U/L (0-33) H 03/20/23 17:30 Alkaline Phosphatase 68 U/L (35-105) 03/20/23 17:30 Troponin T Baseline 12 ng/L (0-10) H 03/20/23 17:30 Troponin T 120 Minute 11.42 ng/L (0-10) H 03/20/23 19:42 Delta Troponin T -0.58 ABS# (0-10) L 03/20/23 19:42 NT-Pro-B Natriuret Pep 186 pg/mL (0-450) 03/20/23 17:30 Total Protein 6.6 g/dL (6.6-8.7) 03/20/23 17:30 Albumin 3.9 g/dL (3.5-5.2) 03/20/23 17:30 Globulin 2.7 g/dL (1.3-4.6) 03/20/23 17:30 Urine Color Yellow (Yellow) 03/20/23 18:43 Urine Appearance Cloudy (CLEAR) A 03/20/23 18:43 Urine pH 5 (5-7) 03/20/23 18:43 Ur Specific [place] 1.025 (1.005-1.030) 03/20/23 18:43 Urine Protein Neg (Negative) 03/20/23 18:43 Urine Glucose (UA) Norm (Normal) 03/20/23 18:43 Urine Ketones Negative (Negative) 03/20/23 18:43 Urine Blood 2+ (Negative) H 03/20/23 18:43 Urine Nitrate Negative (Negative) 03/20/23 18:43 Urine Bilirubin Neg (Negative) 03/20/23 18:43 Urine Urobilinogen Norm mg/dL (Negative) 03/20/23 18:43 Ur Leukocyte Esterase Trace (Negative) H 03/20/23 18:43 Urine RBC 0-4 /hpf (0-2) H 03/20/23 18:43 Urine WBC 0-4 /hpf (0-5) H 03/20/23 18:43 Ur Squamous Epith Cells 10-15 /hpf (0-5) H 03/20/23 18:43 Calcium Oxalate Crystal Rare /hpf 03/20/23 18:43 Amorphous Sediment Not Reportable 03/20/23 18:43 Urine Bacteria Trace /hpf (NONE) 03/20/23 18:43 EKG Data EKG 1: I personally reviewed and interpreted this EKG as follows: EKG Interpretation Date: 03/20/23 EKG interpretation time: 18:11 Prior EKG tracings: not available for review Computer Generated Interpretation: EKG showed ventricular rate 73 beats minute, WA interval 225, QRS duration 148, QTc of 464, sinus rhythm with first-degree AV block, left bundle branch block EKG 2: I personally reviewed and interpreted this EKG as follows: EKG Interpretation Date: 03/20/23 EKG interpretation time: 19:30 Prior EKG tracings: available for review Interpretation: EKG showed ventricular rate 73 beats minute, WA interval 217, QRS duration 146, QTc 470, sinus rhythm with first-degree AV block, left bundle branch block Discharge Plan Discharge Patient Disposition: Home Clinical Impression: Essential (primary) hypertension, Myalgia Nausea & vomiting Qualifiers: Vomiting type: unspecified Qualified Code(s): R11.2 - Nausea with vomiting, unspecified Condition: Stable Prescriptions: No Action vitamin E 200 unit capsule 400 unit PO DAILY omega-3 fatty acids [Fish Oil Concentrate] 1,000 mg capsule 1,000 mg PO DAILY multivitamin [Daily Multi-Vitamin] Tablet 1 tab PO QAM calcium carbonate 600 mg calcium (1,500 mg) tablet 1,500 mg PO DAILY polyethylene glycol 3350 [Miralax] 17 gram/dose powder 17 gm PO DAILY PRN (Reason: constipation) Qty: 255 1RF mecobalamin (vitamin B12) 1,000 mcg tablet,chewable 1,000 mcg PO DAILY triamcinolone acetonide 0.1 % cream 1 applic topical BID 10 Days Qty: 80 0RF Eliquis 2.5 mg tablet 2.5 mg PO BID 90 Days Qty: 180 0RF coenzyme L19-onplbkm E 100-100 mg-unit capsule PO nitroglycerin [Nitrostat] 0.4 mg tablet, sublingual 0.4 mg SUBLINGUAL Q5M PRN (Reason: chest pain) Qty: 30 0RF losartan 100 mg tablet See Rx Instructions .ROUTE .COMPLEX Qty: 90 3RF Dose Instruction: TAKE ONE TABLET BY MOUTH DAILY Rx Instructions: TAKE ONE TABLET BY MOUTH DAILY atorvastatin 80 mg tablet See Rx Instructions .ROUTE .COMPLEX Qty: 90 3RF Dose Instruction: TAKE ONE TABLET BY MOUTH DAILY Rx Instructions: TAKE ONE TABLET BY MOUTH DAILY metoprolol tartrate 50 mg tablet 50 mg PO BID Qty: 180 3RF potassium chloride 8 mEq tablet extended release See Rx Instructions .ROUTE .COMPLEX Qty: 90 3RF Dose Instruction: TAKE ONE TABLET BY MOUTH DAILY As Needed, with furosemide Rx Instructions: TAKE ONE TABLET BY MOUTH DAILY As Needed, with furosemide clopidogrel 75 mg tablet See Rx Instructions .ROUTE .COMPLEX Qty: 90 1RF Dose Instruction: TAKE ONE TABLET BY MOUTH EVERY DAY Rx Instructions: TAKE ONE TABLET BY MOUTH EVERY DAY omeprazole 20 mg capsule,delayed release(DR/EC) See Rx Instructions .ROUTE .COMPLEX Qty: 90 1RF Dose Instruction: TAKE ONE CAPSULE BY MOUTH DAILY Rx Instructions: TAKE ONE CAPSULE BY MOUTH DAILY levocetirizine [Xyzal] 5 mg tablet 5 mg PO DAILY Qty: 90 0RF clonazepam 0.5 mg tablet 0.5 mg PO BID Qty: 60 1RF furosemide 20 mg tablet See Rx Instructions .ROUTE .COMPLEX Qty: 180 3RF Dose Instruction: TAKE ONE TABLET BY MOUTH TWICE DAILY NEEDED FOR EDEMA Rx Instructions: TAKE ONE TABLET BY MOUTH TWICE DAILY NEEDED FOR EDEMA Discharge Orders: Discharge ED (Routine); Ordered 03/20/23 Ordered By: Adolph Stinson Referrals: Angela Dennis FNP [Primary Care Provider] - 1 week Patient Instructions: Hypertension, Myalgia, Acute Nausea and Vomiting (ED) Activity Restrictions/Additional Instructions: Please follow-up with your family practice physician within the next week as you may benefit from further evaluation and treatment. Feel free to return to the ER if your symptoms worsen or your condition changes. Coding Level of Care Code ED [employer] Liaison Officer for Morris Ramos
[2023-03-20] MEDS: ondansetron 2 mg/ML SDV 2 mL 4 MG IVP (17:37)
[2023-03-20] MEDS: hyDRALAzine 20 mg/mL INJ 1 mL IVP (17:38)
[2023-03-20 17:45] LABS: Basophils # 0.1 10^3/uL (0.0-0.1); Basophils % 0.7 %; Eosinophils # 0.3 10^3/uL (0.0-0.8); Eosinophils % 3.7 %; Hematocrit 42.2 % (37.0-47.0); Hemoglobin 13.7 g/dL (11.5-15.3); Lymphocytes # 2.5 10^3/uL (0.8-4.8); Lymphocytes % 34.8 %; Mean Corpuscular HGB Conc 32.5 g/dL (30.0-36.0); Mean Corpuscular Hemoglobin 32.2 pg (28.0-34.0); Mean Corpuscular Volume 99.3 fl (81-99); Mean Platelet Volume 12.9 fL (7.4-10.4); Monocytes # 1.1 10^3/uL (0.2-0.9); Neutrophils # 3.14 10^3/uL (1.8-7.7); Neutrophils % 44.5 %; Nucleated Red Blood Cells % 0 %; Platelet Count 147 10^3/cmm (130-400); Red Blood Count 4.25 10^6/uL (4.1-5.3); Red Cell Distribution Width 12.8 % (12.1-15.1); White Blood Count 7.1 10^3/uL (4.0-10.0)
[2023-03-20 18:08] LABS: Troponin(5th) Baseline 12 ng/L (0-10)
[2023-03-20 18:14] VITALS: BP 155/75; PULSE 75; RESP 24; O2SAT 96
[2023-03-20 18:15] LABS: Alanine Aminotransferase 38 U/L (0-33); Albumin Level 3.9 g/dL (3.5-5.2); Alkaline Phosphatase 68 U/L (35-105); Anion Gap 12.4 (5-19); Aspartate Amino Transferase 41 U/L (0-32); Blood Urea Nitrogen 17 mg/dL (8-23); Calcium 9.4 mg/dL (8.5-10.5); Carbon Dioxide 31 mmol/L (22-29); Chloride 103 mmol/L (98-107); Globulin 2.7 g/dL (1.3-4.6); Glucose 131 mg/dL (65-115); Magnesium 1.8 mg/dL (1.7-2.3); NT Pro B Type Natriuretic Pept 186 pg/mL (0-450); Osmolality Calculated 297 mOsm/kg (285-295); Potassium 4.4 mmol/L (3.5-5.1); Sodium 142 mmol/L (136-145); Total Bilirubin 0.2 mg/dL (0.15-1.2); Total Protein 6.6 g/dL (6.6-8.7)
[2023-03-20 18:32] VITALS: BP 148/78; PULSE 77; RESP 17; O2SAT 98
--- NOTE | 2023-03-20 19:30 | ECG_ITS ---
[facility] Test Date: 2023-03-20 Pat Name: Archana Franklin Department: Room: Gender: Female Senior Staff Accountant: : 1945 Requested By: Adolph Stinson Order Number: [id number] Koko MD: Ed Rios M.D. Measurements Intervals [place] Rate: 73 P: 43 MT: 217 QRS: 10 QRSD: 146 T: 137 QT: 445 QTc: 491 Interpretive Statements SINUS RHYTHM WITH FIRST DEGREE AV BLOCK LEFT BUNDLE BRANCH BLOCK [120+ ms QRS DURATION, 80+ ms Q/S IN V1/V2, 85+ ms R IN I/aVL/V5/V6] Compared to ECG 03/20/2023 18:11:30 No significant changes Electronically Signed On 03-21-2023 15:43:41 CDT by Ed Rios M.D. [id number]
[2023-03-20 19:35] VITALS: BP 151/85; PULSE 72; RESP 13; O2SAT 99
[2023-03-20] MEDS: ketorolac 30 mg/mL INJ IVP (19:45)
[2023-03-20 19:48] LABS: Urine Appearance Cloudy (CLEAR); Urine Color Yellow (Yellow)
[2023-03-20 19:49] LABS: Add Urine Microscopic? YES; Bacteria Urine TRACE /hpf; Bilirubin Urine Neg (Negative); Blood Urine 2+ (Negative); Calcium Oxalate Crystals Urine RARE /hpf; Glucose Urine UA Norm (Normal); Ketones Urine Negative (Negative); Leukocyte Esterase Urine Trace (Negative); Nitrate Urine Negative (Negative); Protein Urine Neg (Negative); RBC Urine 0-4 /hpf (0-2); Specific Gravity, Urine 1.025 (1.005-1.030); Urobilinogen Urine Norm (Negative); WBC Urine 0-4 /hpf (0-5); pH Urine 5 (5-7)
[2023-03-20 19:50] LABS: Add Urine Culture? No
[2023-03-20 20:12] LABS: Troponin 5 2HR 11.42 ng/L (0-10)
[2023-03-20 20:14] LABS: Troponin 5 2HR Delta -0.58 ABS# (0-10)
[2023-03-20] MEDS: metoclopramide 5 mg/mL SDV 2 mL 10 MG IVP (20:50)
== END 2023-03-20 21:00 | disposition home or self-care (01) ==
PROVIDERS: Emergency Provider Emergency Medicine; PCP Nurse Practitioner Family
DX: R11.2 Nausea with vomiting, unspecified (principal); M79.10 Myalgia, unspecified site; I10 Essential (primary) hypertension; Z79.02 Long term (current) use of antithrombotics/antiplatelets; Z79.01 Long term (current) use of anticoagulants; E78.2 Mixed hyperlipidemia; E11.9 Type 2 diabetes mellitus without complications
CPT/HCPCS: 36415; 80053; 81001; 83735; 83880; 84484; 85025; 93005; 96374; 96375; 99284; J0360; J1885; J2405; J2765

== ENCOUNTER → 2023-03-22 11:37 | Outpatient (BNVA) | payer MEDICARE, MEDICAID, SELFPAY | PROVIDERS: PCP Nurse Practitioner Family; Visit Provider Nurse Practitioner Family | DX: J30.89 Other allergic rhinitis (principal); W57.XXXA Bitten or stung by nonvenomous insect and other nonvenomous arthropods, initial encounter | CPT/HCPCS: 80053; 83735; 85025; 86003; 86008; 86618; 86666; 86757 ==

== ENCOUNTER 2023-04-26 20:52 | Emergency (ER) | payer MEDICARE, MEDICAID, SELFPAY ==
[2023-04-26 20:58] VITALS: BP 189/113; PULSE 74; RESP 16; TEMP 36.7; O2SAT 96; BMI 36.1
--- NOTE | 2023-04-26 21:12 | ECG_ITS ---
[facility] Test Date: 2023-04-26 Pat Name: Archana Franklin Department: Room: Gender: Female Billing Collections Specialist: : 1945 Requested By: Bart Mckenzie Order Number: [id number] Koko MD: Meena Uriarte M.D. Measurements Intervals [place] Rate: 66 P: 43 SD: 238 QRS: 4 QRSD: 150 T: 141 QT: 431 QTc: 455 Interpretive Statements SINUS RHYTHM WITH FIRST DEGREE AV BLOCK LEFT BUNDLE BRANCH BLOCK [120+ ms QRS DURATION, 80+ ms Q/S IN V1/V2, 85+ ms R IN I/aVL/V5/V6] Compared to ECG 03/20/2023 19:30:25 No significant changes Electronically Signed On 04-26-2023 21:27:54 CDT by Meena Uriarte M.D. [id number]
--- NOTE | 2023-04-26 21:17 | XRR_ITS ---
PROCEDURE INFORMATION: Exam: XR Left Shoulder Exam date and time: 04/26/2023 9:31 PM Age: 78 years old Clinical indication: Pain; Shoulder; Left TECHNIQUE: Imaging protocol: Radiologic exam of the left shoulder. Views: 2 or more views. COMPARISON: CR XR chest 2V* [id number] 10/23/2022 2:12 PM FINDINGS: Tubes, catheters and devices: Aortic valve prosthesis. Bones/joints: The bones are intact and in normal alignment. Mild degenerative changes of the left glenohumeral and acromioclavicular joints. No fracture or dislocation. Lungs: Interstitial prominence in the left lung. Soft tissues: Normal. XR/XR shoulder LT min 2V* [id number] IMPRESSION: No acute findings.
[2023-04-26] MEDS: ketorolac 30 mg/mL INJ 15 MG IVP (21:33)
[2023-04-26 21:55] LABS: Basophils % 0.8 %; Eosinophils # 0.1 10^3/uL (0.0-0.8); Eosinophils % 2.1 %; Hematocrit 42.3 % (37.0-47.0); Hemoglobin 13.8 g/dL (11.5-15.3); Lymphocytes # 1.8 10^3/uL (0.8-4.8); Lymphocytes % 33.5 %; Mean Corpuscular HGB Conc 32.6 g/dL (30.0-36.0); Mean Corpuscular Hemoglobin 32.4 pg (28.0-34.0); Mean Corpuscular Volume 99.3 fl (81-99); Mean Platelet Volume 13.5 fL (7.4-10.4); Monocytes # 0.6 10^3/uL (0.2-0.9); Monocytes % 11.7 %; Neutrophils # 2.73 10^3/uL (1.8-7.7); Neutrophils % 51.7 %; Nucleated Red Blood Cells % 0 %; Platelet Count 134 10^3/cmm (130-400); Red Blood Count 4.26 10^6/uL (4.1-5.3); Red Cell Distribution Width 12.6 % (12.1-15.1); White Blood Count 5.3 10^3/uL (4.0-10.0)
[2023-04-26 22:01] VITALS: BP 154/99; PULSE 60; RESP 16; O2SAT 95
[2023-04-26 22:08] LABS: Alanine Aminotransferase 42 U/L (0-33); Albumin Level 3.8 g/dL (3.5-5.2); Alkaline Phosphatase 62 U/L (35-105); Anion Gap 12.5 (5-19); Aspartate Amino Transferase 40 U/L (0-32); Blood Urea Nitrogen 13 mg/dL (8-23); Calcium 8.8 mg/dL (8.5-10.5); Carbon Dioxide 28 mmol/L (22-29); Chloride 102 mmol/L (98-107); Globulin 2.7 g/dL (1.3-4.6); Glucose 167 mg/dL (65-115); Osmolality Calculated 292 mOsm/kg (285-295); Potassium 3.5 mmol/L (3.5-5.1); Sodium 139 mmol/L (136-145); Total Bilirubin 0.3 mg/dL (0.15-1.2); Total Protein 6.5 g/dL (6.6-8.7)
[2023-04-26 22:09] LABS: Troponin(5th) Baseline 11 ng/L (0-10)
--- NOTE | 2023-04-26 22:28 | W.ED.EXTPRO ---
HPI - Extremity Problem General: Chief complaint: Extremity Injury, Upper Stated complaint: shoulder pain Time Seen by Provider: 04/26/23 21:08 History of Present Illness: 78-year-old female presented emergency room with daughter due to left shoulder pain. Patient further reveals that the pain started few hours ago while she was lifting up a cup of tea. The pain as aching sensation mostly anterior aspect of shoulder and chest wall. Described pain as aching sensation with severity of 7 out of 10. Pain with movement and palpation. And was concerned due to the fact that she has had a heart attack before. Couple of stents. Nausea, sweating, vomiting, cough, coughing up blood or vomiting blood. Denies sore leg swelling. No fall or direct injury to the chest wall. No numbness or tingling. Review of Systems General: Reports: 10 or more systems reviewed and unremarkable except in HPI and below Eyes: Denies: change in vision, blurry vision or blind spots Resp: Denies: dyspnea, productive cough, non-productive cough, wheezing, stridor, pain on inspiration or change in phlegm color Musc: Reports: extremity pain (Left shoulder pain) and joint pain (Left shoulder pain); Denies: neck pain or back pain PFSH ED PFSH: Medical History Adnexal cyst Anxiety feels controlled with meds Aortic heart murmur Arteriosclerotic heart disease (ASHD) Encounter for counseling for care management of patient with chronic conditions and complex health needs using nurse-based model Enrolled in chronic care management Essential (primary) hypertension Fatty infiltration of liver Gastro-esophageal reflux disease without esophagitis Left leg swelling Mixed hyperlipidemia Obesity, unspecified BMI 30.0-34.9 Seasonal allergies Type 2 diabetes mellitus without complications Surgical History H/O aortic valve replacement TAVR Hx of angioplasty stent's x 3 Hx of appendectomy Hx of cholecystectomy Hx of hysterectomy S/P knee surgery X2 Family History Family/Other No pertinent family history Lung disease Brother CAD (coronary artery disease) Mother Dementia Stroke Sister Diabetes Father Suicide Denies family history of Clotting disorder Chronic kidney disease (CKD) Anesthesia complication Bleeding disorder Cancer Social History Smoking and tobacco status: never smoked Second hand smoke exposure: No Alcohol intake: never Substance/Drug Use: never Adopted: No Caregiver/support person: Yes (family) Lives independently: Yes Household members: none Housing: House Marital status: / Number of children: 3 service: No Current occupational status: retired Current gender identity: Female Rosi/Mu-Ism: Nondenominational Special rosi needs: No Agree to transfusion: Yes Physical Exam Const: COMMON NORMALS: no acute distress, average body habitus, patient oriented x3, no limitations, healthy appearing, alert and well nourished Neck/C-Spine: COMMON NORMALS: full ROM, no lymphadenopathy, supple, no meningeal signs, no JVD, Thyroid normal and No carotid bruits THYROID: Thyroid normal Chest: CHEST: Yes abnormal inspection of the chest, Yes Symmetrical chest wall rise, No crepitus, Yes localized rib tenderness with anteroposterior compression (Left upper chest wall with tenderness on palpation. No palpable deformity ), No Sternal flail present, No mass and No sinus tracts Cardio: COMMON NORMALS: no JVD Extremity: LEFT UPPER EXTREMITY: Yes shoulder joint Left shoulder joint: Yes inspection (No obvious deformities. No rash or lesion.), Yes palpation (Diffuse tenderness upon palpation mostly anterior aspect of the shoulder.) and Yes ROM (Pain with full range of motion.) Neuro: COMMON NORMALS: patient oriented x3 SENSORIUM/ORIENTATION: Yes alert MENINGEAL SIGNS: Yes no meningeal signs SENSORY EXAM: Yes extremities and Normal double simultaneous stimulation for sensation; No sensory level loss detected MOTOR EXAM: 5/5 motor strength present throughout Skin: COMMON NORMALS: no rashes or lesions noted, no wounds, turgor normal, no jaundice, no petechiae and no mottling GENERAL SKIN EXAM: no rashes or lesions noted and turgor normal Course Vital Signs: Vital signs: Vital Signs Temperature 98.0 F 04/26/23 20:58 Pulse Rate 60 04/26/23 22:01 Respiratory Rate 16 04/26/23 22:01 Blood Pressure 154/99 04/26/23 22:01 Pulse Oximetry 95 04/26/23 22:01 Oxygen Delivery Me thod Room Air 04/26/23 20:58 MDM - Extremity (Nontraumatic) Medical Decision Making Patient made comfortable emergency room. Labs and x-ray ordered. EKG ordered and reviewed. Discussed the lab findings, x-ray findings and EKG finding with patient and daughter. Patient was reassured and close follow-up PCP recommended. Differential Diagnosis Likely cellulitis, deep venous thrombosis of upper extremity and deep vein thrombosis of lower extremity (Other things considered was acute TX, strain, sprain, dislocation, fracture pneumonia lung mass.) Medical Records EKG from previous admission reviewed T left bundle branch block is not new. Lab Data 04/26/23 21:30 04/26/23 21: Radiology Impressions Shoulder X-Ray 04/26/23: IMPRESSION: No acute findings. Laboratory Results WBC 5.3 10^3/uL (4.0-10.0) 04/26/23: RBC 4.26 10^6/uL (4.1-5.3) 04/26/23: Hgb 13.8 g/dL (11.5-15.3) 04/26/23: Hct 42.3 % (37.0-47.0) 04/26/23: MCV 99.3 fl (81-99) H 04/26/23 21: MCH 32.4 pg (28.0-34.0) 04/26/23: MCHC 32.6 g/dL (30.0-36.0) 04/26/23 21: RDW 12.6 % (12.1-15.1) 04/26/23 21: Plt Count 134 10^3/cmm (130-400) 04/26/23: MPV 13.5 fL (7.4-10.4) H 04/26/23 21: Neut % (Auto) 51.7 % 04/26/23 21: Lymph % (Auto) 33.5 % 04/26/23: [place] % (Auto) 11.7 % 04/26/23: Eos % (Auto) 2.1 % 04/26/23 21: Baso % (Auto) 0.8 % 04/26/23: Neut # (Auto) 2.73 10^3/uL (1.8-7.7) 04/26/23: Lymph # (Auto) 1.8 10^3/uL (0.8-4.8) 04/26/23 21:30 [place] # (Auto) 0.6 10^3/uL (0.2-0.9) 04/26/23 21:30 Eos # (Auto) 0.1 10^3/uL (0.0-0.8) 04/26/23 21:30 Baso # (Auto) 0.0 10^3/uL (0.0-0.1) 04/26/23 21:30 Nucleated RBC % (auto) 0 % 04/26/23 21:30 Nucleated RBCs # 0.0 /100WBC 04/26/23 21:30 Sodium 139 mmol/L (136-145) 04/26/23 21: Potassium 3.5 mmol/L (3.5-5.1) 04/26/23 21: Chloride 102 mmol/L (98-107) 04/26/23 21: Carbon Dioxide 28 mmol/L (22-29) 04/26/23 21: Anion Gap 12.5 (5-19) 04/26/23 21:30 BUN 13 mg/dL (8-23) 04/26/23 21:30 Creatinine 0.7 mg/dL (0.5-0.9) 04/26/23 21:30 GFR Calculation Not Reportable 04/26/23 21: Glucose 167 mg/dL (65-115) H 04/26/23 21:30 Calculated Osmolality 292 mOsm/kg (285-295) 04/26/23: Calcium 8.8 mg/dL (8.5-10.5) 04/26/23 21:30 Total Bilirubin 0.3 mg/dL (0.15-1.2) 04/26/23 21:30 AST 40 U/L (0-32) H 04/26/23 21:30 ALT 42 U/L (0-33) H 04/26/23 21:30 Alkaline Phosphatase 62 U/L (35-105) 04/26/23 21:30 Troponin T Baseline 11 ng/L (0-10) H 04/26/23 21:30 Total Protein 6.5 g/dL (6.6-8.7) L 04/26/23 21:30 Albumin 3.8 g/dL (3.5-5.2) 04/26/23 21:30 Globulin 2.7 g/dL (1.3-4.6) 04/26/23 21:30 Imaging Data Other Xray: My impression: No obvious dislocation or fracture. EKG Data EKG 1: Interpretation: Left bundle branchSinus rhythm rate of 66 with first-degree AV block. Noted. 66 interval to 38 T4 31 Discharge Plan Discharge Patient Disposition: Home Clinical Impression: Myalgia, Shoulder sprain Condition: Stable Prescriptions: No Action vitamin E 200 unit capsule 400 unit PO DAILY omega-3 fatty acids [Fish Oil Concentrate] 1,000 mg capsule 1,000 mg PO DAILY multivitamin [Daily Multi-Vitamin] Tablet 1 tab PO QAM calcium carbonate 600 mg calcium (1,500 mg) tablet 1,500 mg PO DAILY polyethylene glycol 3350 [Miralax] 17 gram/dose powder 17 gm PO DAILY PRN (Reason: constipation) Qty: 255 1RF mecobalamin (vitamin B12) 1,000 mcg tablet,chewable 1,000 mcg PO DAILY triamcinolone acetonide 0.1 % cream 1 applic topical BID 10 Days Qty: 80 0RF Eliquis 2.5 mg tablet 2.5 mg PO BID 90 Days Qty: 180 0RF ondansetron HCl 4 mg tablet 4 mg PO Q6H PRN (Reason: nausea and vomiting) Qty: 60 0RF doxycycline hyclate 100 mg tablet 100 mg PO BID 10 Days Qty: 20 1RF coenzyme [id number] E 100-100 mg-unit capsule PO nitroglycerin [Nitrostat] 0.4 mg tablet, sublingual 0.4 mg SUBLINGUAL Q5M PRN (Reason: chest pain) Qty: 30 0RF losartan 100 mg tablet See Rx Instructions .ROUTE .COMPLEX Qty: 90 3RF Dose Instruction: TAKE ONE TABLET BY MOUTH DAILY Rx Instructions: TAKE ONE TABLET BY MOUTH DAILY atorvastatin 80 mg tablet See Rx Instructions .ROUTE .COMPLEX Qty: 90 3RF Dose Instruction: TAKE ONE TABLET BY MOUTH DAILY Rx Instructions: TAKE ONE TABLET BY MOUTH DAILY metoprolol tartrate 50 mg tablet 50 mg PO BID Qty: 180 3RF potassium chloride 8 mEq tablet extended release See Rx Instructions .ROUTE .COMPLEX Qty: 90 3RF Dose Instruction: TAKE ONE TABLET BY MOUTH DAILY As Needed, with furosemide Rx Instructions: TAKE ONE TABLET BY MOUTH DAILY As Needed, with furosemide clopidogrel 75 mg tablet See Rx Instructions .ROUTE .COMPLEX Qty: 90 1RF Dose Instruction: TAKE ONE TABLET BY MOUTH EVERY DAY Rx Instructions: TAKE ONE TABLET BY MOUTH EVERY DAY omeprazole 20 mg capsule,delayed release(DR/EC) See Rx Instructions .ROUTE .COMPLEX Qty: 90 1RF Dose Instruction: TAKE ONE CAPSULE BY MOUTH DAILY Rx Instructions: TAKE ONE CAPSULE BY MOUTH DAILY levocetirizine [Xyzal] 5 mg tablet 5 mg PO DAILY Qty: 90 0RF furosemide 20 mg tablet See Rx Instructions .ROUTE .COMPLEX Qty: 180 3RF Dose Instruction: TAKE ONE TABLET BY MOUTH TWICE DAILY NEEDED FOR EDEMA Rx Instructions: TAKE ONE TABLET BY MOUTH TWICE DAILY NEEDED FOR EDEMA clonazepam 0.5 mg tablet 0.5 mg PO BID Qty: 60 1RF Discharge Orders: Discharge ED (Routine); Ordered 04/26/23 Ordered By: Cameron Echols Referrals: Angela Dennis, [facility] [Primary Care Provider] - Discharge Diet: Advance as tolerated Discharge Activity: Resume usual activity Patient Instructions: Opioid Safety, Pain Management Coding Level of Care Code ED Application Support Lead for Morris Ramos
[2023-04-26 22:59] VITALS: BP 174/111; PULSE 58; RESP 16; O2SAT 98
[2023-04-26 23:16] VITALS: BP 174/111; PULSE 58; RESP 16; TEMP 36.7; O2SAT 98
== END 2023-04-26 23:17 | disposition home or self-care (01) ==
PROVIDERS: Emergency Provider Family Medicine; PCP Nurse Practitioner Family
DX: S46.912A Strain of unspecified muscle, fascia and tendon at shoulder and upper arm level, left arm, initial encounter (principal); M79.10 Myalgia, unspecified site; X58.XXXA Exposure to other specified factors, initial encounter; I10 Essential (primary) hypertension; E78.2 Mixed hyperlipidemia; E11.9 Type 2 diabetes mellitus without complications
CPT/HCPCS: 36415; 73030; 80053; 84484; 85025; 93005; 96374; 99285; J1885

== ENCOUNTER → 2023-05-21 16:21 | Outpatient (BNVA) | payer MEDICARE, MEDICAID, SELFPAY | PROVIDERS: PCP Nurse Practitioner Family; Visit Provider Nurse Practitioner Family | DX: R05.9 Cough, unspecified (principal) | CPT/HCPCS: 87426 ==

== ENCOUNTER → 2023-06-03 12:58 | Outpatient (BNVA) | payer MEDICARE, MEDICAID, SELFPAY | PROVIDERS: PCP Nurse Practitioner Family; Visit Provider Nurse Practitioner Family | DX: I25.10 Atherosclerotic heart disease of native coronary artery without angina pectoris (principal); I10 Essential (primary) hypertension | CPT/HCPCS: 99214 ==

== ENCOUNTER → 2023-06-18 15:42 | Outpatient (BNVA) | payer MEDICARE, MEDICAID, SELFPAY | PROVIDERS: PCP Nurse Practitioner Family; Visit Provider Nurse Practitioner Family | DX: W57.XXXA Bitten or stung by nonvenomous insect and other nonvenomous arthropods, initial encounter (principal) | CPT/HCPCS: 86003; 86008; 86618; 86666; 86757 ==

== ENCOUNTER → 2023-09-16 16:53 | Outpatient (BNVA) | payer MEDICARE, MEDICAID, SELFPAY | PROVIDERS: PCP Nurse Practitioner Family; Visit Provider Nurse Practitioner Family | DX: E11.9 Type 2 diabetes mellitus without complications (principal); E78.2 Mixed hyperlipidemia; I10 Essential (primary) hypertension | CPT/HCPCS: 80053; 80061; 83036 ==

== ENCOUNTER → 2023-12-09 14:53 | Outpatient (BNVA) | payer MEDICARE, MEDICAID, SELFPAY | PROVIDERS: PCP Nurse Practitioner Family; Visit Provider Internal Medicine Cardiovascular Disease | DX: Z95.2 Presence of prosthetic heart valve (principal); I10 Essential (primary) hypertension; E78.2 Mixed hyperlipidemia; I25.10 Atherosclerotic heart disease of native coronary artery without angina pectoris; R06.00 Dyspnea, unspecified | CPT/HCPCS: 99214 ==

== ENCOUNTER 2024-01-16 12:41 | Outpatient (CLI) | payer MEDICARE, MEDICAID, SELFPAY ==
--- NOTE | 2024-01-16 14:30 | USCV_ITS ---
Archana Franklin Age: 79 Gender: F : 1945 Exam Date: 01/16/2024 13:24 Ordering Phys: So Luciano MD ([email or web address]) Technologist: [place] [facility] [place] tavr BP: 140 / 90 HR: 59 Rhythm: Sinus Technical Quality: Adequate MEASUREMENTS (Male / Female) Normal Values 2D ECHO LVOT Diameter 2.0 cm LV Ejection Fraction MOD 2C 64.4 % LV Ejection Fraction 2C AL 66.4 % LA Diameter 2.9 cm RA Systolic Volume 4C AL 30.3 ml RA Systolic Volume 4C MOD 29.4 ml Aorta at Sinotubular Diameter 2.2 cm IVC Diameter 1.8 cm DOPPLER AV Peak Velocity 195.3 cm/s LVOT Peak Velocity 106.0 cm/s AV Area Cont Eq vti 2.1 cm squared AV Area Cont Eq pk 1.7 cm squared MV Peak Velocity 104.0 cm/s MV Area PHT 2.4 cm squared Mitral E to A Ratio 0.7 TV Peak Velocity 158.0 cm/s TR Peak Velocity 218.0 cm/s TR Peak Gradient 19.0 mmHg TV Peak E Velocity 85.0 cm/s Right Atrial Pressure 3.0 mmHg Pulmonary Artery Systolic Pressu 22.0 mmHg PV Peak Velocity 109.0 cm/s FINDINGS Left Ventricle Normal left ventricular size and systolic function, EF 66%.mild left ventricular hypertrophy. No regional wall motion abnormalities. Grade I/IV diastolic dysfunction (abnormal relaxation filling pattern), normal to mildly elevated filling pressures. Right Ventricle The right ventricle is normal in size and function. Right Atrium The right atrium is normal in size. Left Atrium The left atrium is normal in size. Mitral Valve Mild mitral annular calcification. No gross abnormalities noted Aortic Valve The bioprosthetic valve in the aortic position appears to be well-seated. Peak velocity across the valve was 2.05 m/s. Valve area was calculated to be 1.94 cm squared Tricuspid Valve Trace tricuspid valve regurgitation. Pulmonic Valve No gross abnormalities noted Pericardium Normal pericardium without effusion. Aorta Normal ascending aorta dimension. IVC The inferior vena cava appears normal. CONCLUSIONS Normal left ventricular size and systolic function, EF 66%.mild left ventricular hypertrophy. No regional wall motion abnormalities. Grade I/IV diastolic dysfunction (abnormal relaxation filling pattern), normal to mildly elevated filling pressures. The bioprosthetic valve in the aortic position appears to be well-seated. Peak velocity across the valve was 2.05 m/s. Valve area was calculated to be 1.94 cm squared. Trace tricuspid valve regurgitation. Estimated pulmonary artery peak systolic pressure 22 mmHg. There is no pericardial effusion. There are no intracardiac masses. Compared to the study from 02/07/2022, there may not be a significant change Dr So Luciano MD [facility] (Electronically Signed) Final Date: 17 January 2024 10:19 S
== END 2024-01-16 12:42 | disposition home or self-care (01) ==
LOC: RAD 12:41
PROVIDERS: PCP Nurse Practitioner Family; Visit Provider Internal Medicine Cardiovascular Disease
DX: R06.09 Other forms of dyspnea (principal); Z95.2 Presence of prosthetic heart valve
CPT/HCPCS: 93306

== ENCOUNTER → 2024-01-22 09:44 | Outpatient (BNVA) | payer MEDICARE, MEDICAID, SELFPAY | PROVIDERS: PCP Nurse Practitioner Family; Visit Provider Nurse Practitioner Family | DX: F41.9 Anxiety disorder, unspecified (principal); I25.10 Atherosclerotic heart disease of native coronary artery without angina pectoris; I10 Essential (primary) hypertension; E78.2 Mixed hyperlipidemia | CPT/HCPCS: 80053; 80061; 84443; 85025 ==

== ENCOUNTER → 2024-05-12 10:11 | Outpatient (BNVA) | payer MEDICARE, MEDICAID, SELFPAY | PROVIDERS: PCP Nurse Practitioner Family; Visit Provider Nurse Practitioner Family | DX: E11.9 Type 2 diabetes mellitus without complications (principal); I25.10 Atherosclerotic heart disease of native coronary artery without angina pectoris; F41.9 Anxiety disorder, unspecified; E78.2 Mixed hyperlipidemia; I10 Essential (primary) hypertension; K21.9 Gastro-esophageal reflux disease without esophagitis; E55.9 Vitamin D deficiency, unspecified | CPT/HCPCS: 80053; 80061; 82306; 83036; 85025 ==

== ENCOUNTER → 2024-06-09 09:49 | Outpatient (BNVA) | payer MEDICARE, MEDICAID, SELFPAY | PROVIDERS: PCP Nurse Practitioner Family; Visit Provider Nurse Practitioner Family | DX: I10 Essential (primary) hypertension (principal); I25.10 Atherosclerotic heart disease of native coronary artery without angina pectoris | CPT/HCPCS: 99214 ==

== ENCOUNTER 2024-11-09 05:13 | Emergency (ER) | payer MEDICARE, SELFPAY ==
[2024-11-09] VITALS (20 sets, daily range): BP systolic 141–221; BP diastolic 49–94; PULSE 59–66; RESP 16; TEMP 36.7; O2SAT 91–97; BMI 36.3
--- NOTE | 2024-11-09 05:36 | XRR_ITS ---
PROCEDURE INFORMATION: Exam: XR Right Shoulder Exam date and time: 11/09/2024 5:38 AM Age: 79 years old Clinical indication: Right; Patient HX: Patient sustained a fall one month ago and C/O persistent RT shoulder pain. ; Additional info: Right shoulder pain TECHNIQUE: Imaging protocol: Radiologic exam of the right shoulder. Views: 2 or more views. COMPARISON: CR (CHEST, ) 11/09/2024 5:38 AM FINDINGS: Bones/joints: No fracture or dislocation is noted. The AC joint and glenohumeral joints are essentially normal. There is a calcified density adjacent to the coracoid process measuring 6-7 mm in size. This potentially could represent a loose body within the subcoracoid bursa. Soft tissues: Normal. XR/XR shoulder RT min 2V* [id number] IMPRESSION: 1. Possible loose body within the subcoracoid bursa.
--- NOTE | 2024-11-09 05:36 | XRR_ITS ---
PROCEDURE INFORMATION: Exam: XR Right Knee Exam date and time: 11/09/2024 5:38 AM Age: 79 years old Clinical indication: Swelling, leg or foot; Right; Patient HX: Patient sustained a fall one month ago and C/O persistent RT knee pain with swelling. ; Additional info: R knee pain swelling TECHNIQUE: Imaging protocol: Radiologic exam of the right knee. Views: 3 views. COMPARISON: No relevant prior studies available. FINDINGS: Bones/joints: No fracture or dislocation is appreciated. There is mild joint space narrowing with osteophyte formation involving the medial and patellofemoral compartments. Somewhat subtle sclerotic lesion involving the proximal shaft of the femur most suspicious for a small bone infarct or enchondroma. No aggressive features are noted. Bony mineralization is normal. There is no evidence of a significant joint effusion. Soft tissues: Normal. XR/XR knee RT 3V* [id number] IMPRESSION: 1. Mild osteoarthritis.
--- NOTE | 2024-11-09 05:36 | XRR_ITS ---
PROCEDURE INFORMATION: Exam: XR Chest Exam date and time: 11/09/2024 5:38 AM Age: 79 years old Clinical indication: Radiating; Prior surgery; Surgery date: 6+ months; Surgery type: Tavr; Patient HX: C/O RT shoulder pain that radiates into chest causing SOB; Additional info: R shoulder pain radiates to chest, SOB TECHNIQUE: Imaging protocol: Radiologic exam of the chest. Views: 1 view. COMPARISON: CR XR chest 2V* [id number] 10/23/2022 2:12 PM FINDINGS: Lungs: Unremarkable. No consolidation. Pleural spaces: Unremarkable. No pleural effusion. No pneumothorax. Heart/Mediastinum: The heart is slightly enlarged. There is a valvular prosthesis present. Bones/joints: No acute bony abnormalities are appreciated. There may be a loose body within the subcoracoid bursa right shoulder. XR/XR chest 1V portable [id number] IMPRESSION: 1. Mild cardiomegaly.
--- NOTE | 2024-11-09 06:03 | ECG_ITS ---
[facility]24[facility]09 Pat Name: Archana Franklin Department: Room: Gender: Female Manager Background: : 1945 Requested By: Bart Mckenzie Order Number: [id number] Sutherland MD: Ed Rios M.D. Measurements Intervals [place] Rate: 59 P: 54 [place]: 228 QRS: 18 QRSD: 142 T: 132 QT: 468 QTc: 464 Interpretive Statements SINUS BRADYCARDIA WITH FIRST DEGREE AV BLOCK LEFT BUNDLE BRANCH BLOCK [120+ ms QRS DURATION, 80+ ms Q/S IN V1/V2, 85+ ms R IN I/aVL/V5/V6] Compared to ECG 04/26/2023 21:12:28 Sinus rhythm no longer present Electronically Signed On 11-12-2024 12:55:28 SOCK MENDER by Ed Rios M.D. [email or web address]
--- NOTE | 2024-11-09 06:42 | ED_ITS ---
Documented by User: Bart Wagner, DO 11/09/24 06:59 HPI - Extremity Problem 2 General: Chief complaint: Extremity Problem,Nontraumatic Stated complaint: SHOULDER PAIN Time Seen by Provider: 11/09/24 05:30 History of Present Illness: 79-year-old female with a history of cor onary disease. She tells me she fell in a groundhog hole a month ago. She hurt her knee at that point. She also believes she hurt her shoulder. Last night, shoulder pain seem to get worse and worse. She woke up lying on the shoulder and her pain was worse. She was somewhat short of breath as well which concerned her. She called an ambulance Related Data Home Medications Medication Instructions Recorded Confirmed atorvastatin 80 mg tablet 80 mg PO DAILY 11/09/24 11/09/24 clopidogrel 75 mg tablet 75 mg PO DAILY 11/09/24 11/09/24 furosemide 20 mg tablet 20 mg PO BID 11/09/24 11/09/24 levocetirizine 5 mg tablet 5 mg PO DAILY 11/09/24 11/09/24 losartan 100 mg tablet 100 mg PO DAILY 11/09/24 11/09/24 metoprolol tartrate 75 mg tablet 75 mg PO BID 11/09/24 11/09/24 pantoprazole 40 mg tablet,delayed 40 mg PO DAILY 11/09/24 11/09/24 release potassium chloride 8 mEq 8 meq PO DAILY 11/09/24 11/09/24 tablet,extended release Previous Rx's Medication Instructions Recorded nitroglycerin 0.4 mg sublingual 0.4 mg sublingual Q5M PRN chest 07/05/22 tablet (Nitrostat) pain #30 tabs clonazepam 0.5 mg tablet 0.5 mg PO BID 30 days #60 tabs 06/26/24 tramadol 50 mg tablet 50 mg PO BID PRN pain #14 tabs 11/09/24 Allergies Allergy/AdvReac Type Severity Reaction Status Date / Time carisoprodol Allergy Unknown Unknown Verified 11/09/24 05:27 levofloxacin [From Levaquin] Allergy Unknown ADR-Heartbu Verified 11/09/24 05:27 rn Penicillins Allergy Unknown ALGY-Swell Verified 11/09/24 05:27 Lip/Tongue/Throat streptomycin Allergy Unknown ALGY-Rash Verified 11/09/24 05:27 Sulfa (Sulfonamide Allergy Unknown ALGY-Rash Verified 11/09/24 05:27 Antibiotics) metformin Allergy diarrhea Verified 11/09/24 05:27 Tetracyclines Allergy nausea Verified 11/09/24 05:27 PFS ED 2 PFSH: Medical History Left leg swelling Obesity, unspecified BMI 30.0-34.9 Type 2 diabetes mellitus without complications Anxiety feels controlled with meds Aortic heart murmur Arteriosclerotic heart disease (ASHD) Fatty infiltration of liver Adnexal cyst Encounter for counseling for care management of patient with chronic conditions and complex health needs using nurse-based model Enrolled in chronic care management Seasonal allergies Mixed hyperlipidemia Essential (primary) hypertension Gastro-esophageal reflux disease without esophagitis Surgical History Hx of hysterectomy Hx of appendectomy Hx of cholecystectomy Hx of angioplasty stent's x 3 H/O aortic valve replacement TAVR S/P knee surgery X2 Family History Family/Other No pertinent family history Lung disease Brother CAD (coronary artery disease) Mother Dementia Stroke Sister Diabetes Father Suicide Denies family history of Clotting disorder Chronic kidney disease (CKD) Anesthesia complication Bleeding disorder Cancer Social History Smoking and tobacco/nicotine status: never used tobacco/nicotine Second hand smoke exposure: No Alcohol intake: never Substance/Drug Use: never Adopted: No Caregiver/support person: Yes (family) Lives independently: Yes Household members: none Housing: House Marital status: / Number of children: 3 service: No Current occupational status: retired Current gender identity: Female Rosi/Amish: Evangelical Special rosi needs: No Agree to transfusion: Yes Physical Exam 2 Const: COMMON NORMALS: no acute distress GENERAL APPEARANCE: cooperative; not ill appearing and not frail appearing HENMT: COMMON NORMALS: normocephalic, atraumatic and Normal external nose present HEAD & SCALP: normocephalic and atraumatic FACE & SINUS: normal facial exam and face symmetric NOSE: Normal external nose present Eye: COMMON NORMALS: Equal, round and reactive pupils present and EOMs intact bilaterally PUPIL: Yes Equal, round and reactive pupils present Neck/C-Spine: GENERAL: Yes trachea midline Chest: CHEST: Yes Symmetrical chest wall rise Resp: COMMON NORMALS: normal respiratory effort, No retractions, No use of accessory muscles and clear to auscultation bilaterally AUSCULTATION: clear to auscultation bilaterally Cardio: COMMON NORMALS: regular rate and regular rhythm RATE: regular rate RHYTHM: regular rhythm GI: COMMON NORMALS: Normal to inspection, nondistended, normoactive bowel sounds present Extremity: NARRATIVE EXTREMITY EXAM: Examination of the right upper extremity reveals tenderness over the rotator cuff), medial border the scapula. Less so to the anterior joint line. There is pain with resisted flexion, and abduction. Spurling's test is negative. No cervical spine tenderness. Exam of the right lower extremity reveals a small knee joint effusion. There is tenderness in the medial joint line. There are some patellofemoral tenderness. No deformity. Pulses are intact upper and lower extremities bilaterally. Neuro: HERMANN COMA SCALE: document GCS findings [place] coma scale eye opening: Spontaneous Hermann coma scale verbal response: Orientated Hermann coma scale motor response: Obey commands Hermann coma scale total score: 15 S ENSORY EXAM: Yes extremities (intact) Psych: COMMON NORMALS: speech normal SPEECH: Yes normal speech Skin: COMMON NORMALS: no rashes or lesions noted GENERAL SKIN EXAM: no rashes or lesions noted Course 2 Vital Signs: Vital signs: Vital Signs Temperature 98.0 F 11/09/24 05:15 Pulse Rate 66 11/09/24 11:21 Respiratory Rate 16 11/09/24 05:15 Blood Pressure 145/94 11/09/24 11:21 Pulse Oximetry 95 11/09/24 11:21 Oxygen Delivery Me thod Room Air 11/09/24 07:00 MDM - Extremity (Nontraumatic) Medical Decision Making X-ray of the knee reveals mild OA. Mild effusion. X-ray of the shoulder reveals no acute bony injury. Chest x-ray is negative. Laboratory including CBC and CMP are pending. EKG shows a chronic left bundle branch block with no concerning ST wave changes. Pending laboratory. The patient will be discharged home. Lab Data 11/09/24 07:34 11/09/24 07:34 Radiology Impressions Chest X-Ray 11/09/24 05:36 IMPRESSION: 1. Mild cardiomegaly. Knee X-Ray 11/09/24 05:36 IMPRESSION: 1. Mild osteoarthritis. Shoulder X-Ray 11/09/24 05:36 IMPRESSION: 1. Possible loose body within the subcoracoid bursa. Laboratory Results WBC 5.99 10^3/uL (3.29-11.43) 11/09/24 07:34 RBC 4.26 10^6/uL (3.85-5.65) 11/09/24 07:34 Hgb 14.10 g/dL (11.27-16.99) 11/09/24 07:34 Hct 42.9 % (36-47) 11/09/24 07:34 MCV 100.7 fl (85-98) H 11/09/24 07:34 MCH 33.1 pg (27-33) H 11/09/24 07:34 MCHC 32.9 g/dL (30-55) 11/09/24 07:34 RDW 13.0 % (12.1-15.1) 11/09/24 07:34 Plt Count 122 10^3/cmm (157-399) L 11/09/24 07:34 MPV 13.3 fL (7.4-10.4) H 11/09/24 07:34 Neut % (Auto) 54.6 % 11/09/24 07:34 Lymph % (Auto) 26.5 % 11/09/24 07:34 [place] % (Auto) 14.5 % 11/09/24 07:34 Eos % (Auto) 3.2 % 11/09/24 07:34 Baso % (Auto) 1.0 % 11/09/24 07:34 Neut # (Auto) 3.27 10^3/uL (1.8-7.7) 11/09/24 07:34 Lymph # (Auto) 1.6 10^3/uL (0.8-4.8) 11/09/24 07:34 [place] # (Auto) 0.9 10^3/uL (0.2-0.9) 11/09/24 07:34 Eos # (Auto) 0.2 10^3/uL (0.0-0.8) 11/09/24 07:34 Baso # (Auto) 0.1 10^3/uL (0.0-0.1) 11/09/24 07:34 Nucleated RBC % (auto) 0 % 11/09/24 07:34 Nucleated RBCs # 0.0 /100WBC 11/09/24 07:34 Sodium 139 mmol/L (136-145) 11/09/24 07:34 Potassium 3.8 mmol/L (3.5-5.1) 11/09/24 07:34 Chloride 100 mmol/L (98-107) 11/09/24 07:34 Carbon Dioxide 27 mmol/L (22-29) 11/09/24 07:34 Anion Gap 15.8 (5-19) 11/09/24 07:34 BUN 16 mg/dL (8-23) 11/09/24 07:34 Creatinine 0.9 mg/dL (0.5-0.9) 11/09/24 07:34 GFR Calculation Not Reportable 11/09/24 07:34 Glucose 148 mg/dL (65-115) H 11/09/24 07:34 Calculated Osmolality 292 mOsm/kg (285-295) 11/09/24 07:34 Calcium 8.8 mg/dL (8.5-10.5) 11/09/24 07:34 Total Bilirubin 0.4 mg/dL (0.15-1.2) 11/09/24 07:34 AST 36 U/L (0-32) H 11/09/24 07:34 ALT 34 U/L (0-33) H 11/09/24 07:34 Alkaline Phosphatase 63 U/L (35-105) 11/09/24 07:34 Total Protein 6.6 g/dL (6.6-8.7) 11/09/24 07:34 Albumin 3.8 g/dL (3.5-5.2) 11/09/24 07:34 Globulin 2.8 g/dL (1.3-4.6) 11/09/24 07:34 Discharge Plan Discharge Patient Disposition: Home Clinical Impression: Osteoarthritis of right knee, Rotator cuff arthropathy of right shoulder Condition: Stable Prescriptions: New tramadol 50 mg tablet 50 mg PO BID PRN (Reason: pain) Qty: 14 0RF No Action clonazepam 0.5 mg tablet 0.5 mg PO BID 30 Days Qty: 60 0RF nitroglycerin [Nitrostat] 0.4 mg tablet, sublingual 0.4 mg SUBLINGUAL Q5M PRN (Reason: chest pain) Qty: 30 0RF atorvastatin 80 mg tablet 80 mg PO DAILY Rx Instructions: TAKE ONE TABLET BY MOUTH DAILY clopidogrel 75 mg tablet 75 mg PO DAILY Rx Instructions: TAKE ONE TABLET BY MOUTH EVERY DAY potassium chloride 8 mEq tablet extended release 8 meq PO DAILY Rx Instructions: TAKE ONE TABLET BY MOUTH DAILY As Needed, with furosemide furosemide 20 mg tablet 20 mg PO BID Rx Instructions: TAKE ONE TABLET BY MOUTH TWICE DAILY NEEDED FOR EDEMA losartan 100 mg tablet 100 mg PO DAILY Rx Instructions: TAKE ONE TABLET BY MOUTH DAILY levocetirizine 5 mg tablet 5 mg PO DAILY Rx Instructions: TAKE ONE TABLET BY MOUTH DAILY metoprolol tartrate 75 mg tablet 75 mg PO BID Rx Instructions: TAKE ONE TABLET BY MOUTH TWICE DAILY pantoprazole 40 mg tablet,delayed release (DR/EC) 40 mg PO DAILY Discharge Orders: Discharge ED (Routine); Ordered 11/09/24 Ordered By: Devyn Barnhart Referrals: Raymond Noyola MD [Primary Care Provider] - 1-3 days Patient Instructions: Rotator Cuff Injury (ED), Osteoarthritis (ED), Opioid Safety, Pain Management Activity Restrictions/Additional Instructions: Thank you for choosing [facility] for your healthcare needs today. It is very important that you follow up as instructed or that you return to the Emergency Department should you have concerns or if your condition changes or worsens in any way. Coding Level of Care Code ED Link And Link Knitting Machine Operator for g Fwd Documented by User: Devyn Barnhart, 11/09/24 12:55 HPI - Extremity Problem 2 General: Chief complaint: Extremity Problem,Nontraumatic Stated complaint: SHOULDER PAIN Time Seen by Provider: 11/09/24 05:30 Related Data Home Medications Medication Instructions Recorded Confirmed atorvastatin 80 mg tablet 80 mg PO DAILY 11/09/24 11/09/24 clopidogrel 75 mg tablet 75 mg PO DAILY 11/09/24 11/09/24 furosemide 20 mg tablet 20 mg PO BID 11/09/24 11/09/24 levocetirizine 5 mg tablet 5 mg PO DAILY 11/09/24 11/09/24 losartan 100 mg tablet 100 mg PO DAILY 11/09/24 11/09/24 metoprolol tartrate 75 mg tablet 75 mg PO BID 11/09/24 11/09/24 pantoprazole 40 mg tablet,delayed 40 mg PO DAILY 11/09/24 11/09/24 release potassium chloride 8 mEq 8 meq PO DAILY 11/09/24 11/09/24 tablet,extended release Previous Rx's Medication Instructions Recorded nitroglycerin 0.4 mg sublingual 0.4 mg sublingual Q5M PRN chest 07/05/22 tablet (Nitrostat) pain #30 tabs clonazepam 0.5 mg tablet 0.5 mg PO BID 30 days #60 tabs 06/26/24 tramadol 50 mg tablet 50 mg PO BID PRN pain #14 tabs 11/09/24 Allergies Allergy/AdvReac Type Severity Reaction Status Date / Time carisoprodol Allergy Unknown Unknown Verified 11/09/24 05:27 levofloxacin [From Levaquin] Allergy Unknown ADR-Heartbu Verified 11/09/24 05:27 rn Penicillins Allergy Unknown ALGY-Swell Verified 11/09/24 05:27 Lip/Tongue/Throat streptomycin Allergy Unknown ALGY-Rash Verified 11/09/24 05:27 Sulfa (Sulfonamide Allergy Unknown ALGY-Rash Verified 11/09/24 05:27 Antibiotics) metformin Allergy diarrhea Verified 11/09/24 05:27 Tetracyclines Allergy nausea Verified 11/09/24 05:27 [facility] ED 2 PFSH: Medical History Left leg swelling Obesity, unspecified BMI 30.0-34.9 Type 2 diabetes mellitus without complications Anxiety feels controlled with meds Aortic heart murmur Arteriosclerotic heart disease (ASHD) Fatty infiltration of liver Adnexal cyst Encounter for counseling for care management of patient with chronic conditions and complex health needs using nurse-based model Enrolled in chronic care management Seasonal allergies Mixed hyperlipidemia Essential (primary) hypertension Gastro-esophageal reflux disease without esophagitis Surgical History Hx of hysterectomy Hx of appendectomy Hx of cholecystectomy Hx of angioplasty stent's x 3 H/O aortic valve replacement TAVR S/P knee surgery X2 Family History Family/Other No pertinent family history Lung disease Brother CAD (coronary artery disease) Mother Dementia Stroke Sister Diabetes Father Suicide Denies family history of Clotting disorder Chronic kidney disease (CKD) Anesthesia complication Bleeding disorder Cancer Social History Smoking and tobacco/nicotine status: never used tobacco/nicotine Second hand smoke exposure: No Alcohol intake: never Substance/Drug Use: never Adopted: No Caregiver/support person: Yes (family) Lives independently: Yes Household members: none Housing: House Marital status: / Number of children: 3 service: No Current occupational status: retired Current gender identity: Female Rosi/Amish: Evangelical Special rosi needs: No Agree to transfusion: Yes Physical Exam 2 Neuro: HERMANN COMA SCALE: document GCS findings Hermann coma scale total score: 15 Course 2 Vital Signs: Vital signs: Vital Signs Temperature 98.0 F 11/09/24 05:15 Pulse Rate 66 11/09/24 11:21 Respiratory Rate 16 11/09/24 05:15 Blood Pressure 145/94 11/09/24 11:21 Pulse Oximetry 95 11/09/24 11:21 Oxygen Delivery Me thod Room Air 11/09/24 07:00 MDM - Extremity (Nontraumatic) Medical Decision Making X-ray of the knee reveals mild OA. Mild effusion. X-ray of the shoulder reveals no acute bony injury. Chest x-ray is negative. Laboratory including CBC and CMP are pending. EKG shows a chronic left bundle branch block with no concerning ST wave changes. Pending laboratory. The patient will be discharged home. Care assumed from Dr. Wagner. Reviewed labs. No significant findings. Blood pressure slightly elevated blood pressure treated is improved she is feeling better discharge patient will follow-up with primary care Lab Data 11/09/24 07:34 11/09/24 07:34 Radiology Impressions Chest X-Ray 11/09/24 05:36 IMPRESSION: 1. Mild cardiomegaly. Knee X-Ray 11/09/24 05:36 IMPRESSION: 1. Mild osteoarthritis. Shoulder X-Ray 11/09/24 05:36 IMPRESSION: 1. Possible loose body within the subcoracoid bursa. Laboratory Results WBC 5.99 10^3/uL (3.29-11.43) 11/09/24 07:34 RBC 4.26 10^6/uL (3.85-5.65) 11/09/24 07:34 Hgb 14.10 g/dL (11.27-16.99) 11/09/24 07:34 Hct 42.9 % (36-47) 11/09/24 07:34 MCV 100.7 fl (85-98) H 11/09/24 07:34 MCH 33.1 pg (27-33) H 11/09/24 07:34 MCHC 32.9 g/dL (30-55) 11/09/24 07:34 RDW 13.0 % (12.1-15.1) 11/09/24 07:34 Plt Count 122 10^3/cmm (157-399) L 11/09/24 07:34 MPV 13.3 fL (7.4-10.4) H 11/09/24 07:34 Neut % (Auto) 54.6 % 11/09/24 07:34 Lymph % (Auto) 26.5 % 11/09/24 07:34 [place] % (Auto) 14.5 % 11/09/24 07:34 Eos % (Auto) 3.2 % 11/09/24 07:34 Baso % (Auto) 1.0 % 11/09/24 07:34 Neut # (Auto) 3.27 10^3/uL (1.8-7.7) 11/09/24 07:34 Lymph # (Auto) 1.6 10^3/uL (0.8-4.8) 11/09/24 07:34 [place] # (Auto) 0.9 10^3/uL (0.2-0.9) 11/09/24 07:34 Eos # (Auto) 0.2 10^3/uL (0.0-0.8) 11/09/24 07:34 Baso # (Auto) 0.1 10^3/uL (0.0-0.1) 11/09/24 07:34 Nucleated RBC % (auto) 0 % 11/09/24 07:34 Nucleated RBCs # 0.0 /100WBC 11/09/24 07:34 Sodium 139 mmol/L (136-145) 11/09/24 07:34 Potassium 3.8 mmol/L (3.5-5.1) 11/09/24 07:34 Chloride 100 mmol/L (98-107) 11/09/24 07:34 Carbon Dioxide 27 mmol/L (22-29) 11/09/24 07:34 Anion Gap 15.8 (5-19) 11/09/24 07:34 BUN 16 mg/dL (8-23) 11/09/24 07:34 Creatinine 0.9 mg/dL (0.5-0.9) 11/09/24 07:34 GFR Calculation Not Reportable 11/09/24 07:34 Glucose 148 mg/dL (65-115) H 11/09/24 07:34 Calculated Osmolality 292 mOsm/kg (285-295) 11/09/24 07:34 Calcium 8.8 mg/dL (8.5-10.5) 11/09/24 07:34 Total Bilirubin 0.4 mg/dL (0.15-1.2) 11/09/24 07:34 AST 36 U/L (0-32) H 11/09/24 07:34 ALT 34 U/L (0-33) H 11/09/24 07:34 Alkaline Phosphatase 63 U/L (35-105) 11/09/24 07:34 Total Protein 6.6 g/dL (6.6-8.7) 11/09/24 07:34 Albumin 3.8 g/dL (3.5-5.2) 11/09/24 07:34 Globulin 2.8 g/dL (1.3-4.6) 11/09/24 07:34 All radiology interpretation(s) finalized by discharge Discharge Plan Discharge Patient Disposition: Home Clinical Impression: Osteoarthritis of right knee, Rotator cuff arthropathy of right shoulder Condition: Stable Prescriptions: New tramadol 50 mg tablet 50 mg PO BID PRN (Reason: pain) Qty: 14 0RF No Action clonazepam 0.5 mg tablet 0.5 mg PO BID 30 Days Qty: 60 0RF nitroglycerin [Nitrostat] 0.4 mg tablet, sublingual 0.4 mg SUBLINGUAL Q5M PRN (Reason: chest pain) Qty: 30 0RF atorvastatin 80 mg tablet 80 mg PO DAILY Rx Instructions: TAKE ONE TABLET BY MOUTH DAILY clopidogrel 75 mg tablet 75 mg PO DAILY Rx Instructions: TAKE ONE TABLET BY MOUTH EVERY DAY potassium chloride 8 mEq tablet extended release 8 meq PO DAILY Rx Instructions: TAKE ONE TABLET BY MOUTH DAILY As Needed, with furosemide furosemide 20 mg tablet 20 mg PO BID Rx Instructions: TAKE ONE TABLET BY MOUTH TWICE DAILY NEEDED FOR EDEMA losartan 100 mg tablet 100 mg PO DAILY Rx Instructions: TAKE ONE TABLET BY MOUTH DAILY levocetirizine 5 mg tablet 5 mg PO DAILY Rx Instructions: TAKE ONE TABLET BY MOUTH DAILY metoprolol tartrate 75 mg tablet 75 mg PO BID Rx Instructions: TAKE ONE TABLET BY MOUTH TWICE DAILY pantoprazole 40 mg tablet,delayed release (DR/EC) 40 mg PO DAILY Discharge Orders: Discharge ED (Routine); Ordered 11/09/24 Ordered By: Devyn Barnhart Referrals: Raymond Noyola MD [Primary Care Provider] - 1-3 days Patient Instructions: Rotator Cuff Injury (ED), Osteoarthritis (ED), Opioid Safety, Pain Management Activity Restrictions/Additional Instructions: Thank you for choosing [facility] for your healthcare needs today. It is very important that you follow up as instructed or that you return to the Emergency Department should you have concerns or if your condition changes or worsens in any way. Coding Level of Care Code ED Link And Link Knitting Machine Operator for Morris Ramos
--- NOTE | 2024-11-09 07:09 | PC.NURSE ---
Assumed care of patient from Grzegorz Dumont RN @ [phone]
[2024-11-09 07:49] LABS: Basophils # 0.1 10^3/uL (0.0-0.1); Eosinophils # 0.2 10^3/uL (0.0-0.8); Eosinophils % 3.2 %; Hematocrit 42.9 % (36-47); Lymphocytes # 1.6 10^3/uL (0.8-4.8); Lymphocytes % 26.5 %; Mean Corpuscular HGB Conc 32.9 g/dL (30-55); Mean Corpuscular Hemoglobin 33.1 pg (27-33); Mean Corpuscular Volume 100.7 fl (85-98); Mean Platelet Volume 13.3 fL (7.4-10.4); Monocytes # 0.9 10^3/uL (0.2-0.9); Monocytes % 14.5 %; Neutrophils # 3.27 10^3/uL (1.8-7.7); Neutrophils % 54.6 %; Nucleated Red Blood Cells % 0 %; Platelet Count 122 10^3/cmm (157-399); Red Blood Count 4.26 10^6/uL (3.85-5.65); White Blood Count 5.99 10^3/uL (3.29-11.43)
[2024-11-09 08:04] LABS: Alanine Aminotransferase 34 U/L (0-33); Albumin Level 3.8 g/dL (3.5-5.2); Alkaline Phosphatase 63 U/L (35-105); Anion Gap 15.8 (5-19); Aspartate Amino Transferase 36 U/L (0-32); Blood Urea Nitrogen 16 mg/dL (8-23); Calcium 8.8 mg/dL (8.5-10.5); Carbon Dioxide 27 mmol/L (22-29); Chloride 100 mmol/L (98-107); Creatinine Clr Calc Pharmacy 67.4722; Globulin 2.8 g/dL (1.3-4.6); Glucose 148 mg/dL (65-115); Osmolality Calculated 292 mOsm/kg (285-295); Potassium 3.8 mmol/L (3.5-5.1); Sodium 139 mmol/L (136-145); Total Bilirubin 0.4 mg/dL (0.15-1.2); Total Protein 6.6 g/dL (6.6-8.7)
[2024-11-09] MEDS: amlodipine 5 mg Tablet PO (10:35)
[2024-11-09] MEDS: hyDRALAzine 20 mg/mL INJ 1 mL 10 MG IVP (10:36)
== END 2024-11-09 11:37 | disposition home or self-care (01) ==
PROVIDERS: Emergency Medicine; Emergency Provider Family Medicine; PCP Internal Medicine
DX: M17.11 Unilateral primary osteoarthritis, right knee (principal); Z79.02 Long term (current) use of antithrombotics/antiplatelets; E11.9 Type 2 diabetes mellitus without complications; E78.2 Mixed hyperlipidemia; I10 Essential (primary) hypertension; M19.011 Primary osteoarthritis, right shoulder
CPT/HCPCS: 36415; 71045; 73030; 73562; 80053; 85025; 93005; 96374; 99285; J0360

== ENCOUNTER → 2025-02-04 16:26 | Outpatient (BNVA) | payer MEDICARE, SELFPAY | PROVIDERS: PCP Internal Medicine; Visit Provider Internal Medicine Cardiovascular Disease | DX: I25.118 Atherosclerotic heart disease of native coronary artery with other forms of angina pectoris (principal); R06.09 Other forms of dyspnea; I10 Essential (primary) hypertension; E78.2 Mixed hyperlipidemia; Z79.01 Long term (current) use of anticoagulants; Z95.2 Presence of prosthetic heart valve; Z95.5 Presence of coronary angioplasty implant and graft | CPT/HCPCS: 93005; 99214 ==

== ENCOUNTER 2025-02-19 07:05 | Outpatient (CLI) | payer MEDICARE, SELFPAY ==
[2025-02-19 07:11] VITALS: BMI 36.3
--- NOTE | 2025-02-19 07:11 | NMCV_ITS ---
NM radha perf SPECT r/s* [id number] Archana Franklin Age: 80 Gender: F : 1945 Exam Date: 02/19/2025 08:15 Ordering Phys: So Luciano MD ([email or web address]) Technologist: JESSICA Villeda Exam Location: [facility] Indications: cp STRESS TEST [facility] IMAGE PROTOCOL Rest/Stress 1 Lexiscan Day Radiopharmaceutical Dose (mCi) Administration Site Administered by Rest: Tc-99m 10.9 IV Charu Osei, POSTING SPECIALIST Sestamibi Stress:Tc-99m 32.9 IV Charu Osei, POSTING SPECIALIST Sestamibi Rest: 19-Feb-2025 60 Discovery 630 Stress: 19-Feb-2025 30 Discovery 630 Supine position only as patient was unable to lay prone. 0.4mg Lexiscan. SPECT RESULTS Technical Quality: Good Raw Data Analysis: Normal Image Corrections: No attenuation or motion correction applied Summed Stress Score: 0 Summed Rest Score: 0 Summed Difference Score: 0 PERFUSION FINDINGS Uniform myocardial tracer uptake. FUNCTIONAL RESULTS (calculated via Gated SPECT) Stress Image LV EF (%): 85 Stress EDV (mL):52 TID: 1.48 Stress ESV (mL):8 FUNCTIONAL FINDINGS: Segmental wall motion analysis revealing no gross wall motion abnormalities IMPRESSIONS 1. Myocardial perfusion imaging revealing uniform myocardial tracer uptake with no significant perfusion abnormalities 2. Normal LV ejection fraction of 85%. 3. LV wall motion analysis revealing no gross wall motion abnormalities. 4. Normal LV volume Low probability for coronary ischemia, based on the above findings No similar previous studies are available for comparison Dr So Luciano MD FACC (Electronically Signed) Final Date: 19 Feb 2025 10:30 S
--- NOTE | 2025-02-19 07:11 | ECG_ITS ---
[employer] Test Date: 2025-02-19 Pat Name: Archana Franklin Department: Room: Gender: Female Systems Analyst: : 1945 Requested By: So Luciano Order Number: [id number] Koko MD: So Luciano M.D. Interpretive Statements Lung unchanged pre/post procedure; Intraprocedure shortess of breath; Symptoms resoled by discharge ROCEDURE: At the baseline, the EKG revealed normal sinus rhythm with a left bundle branch block pattern.. The baseline heart was 66 bpm with a blood pressue of 181/95 mm of Hg Lexiscan was infused over a period of 20 seconds. A total of 0.4 milligrams of Lexiscan was infused. The stress phase was continued for a total of 5 minutes. Heart rate at the end of the stress phase was 83 bpm with a blood pressure 148/69 mm of Hg. The EKG at the peak infusion revealed no significant changes. Sestamibi was injected 20 seconds after the Lexiscan infusion. Heart rate at the end of the recovery phase was 69 bpm with a blood pressure of 177/91 mm of Hg. CONCLUSION: 1. The EKG response to Lexiscan infusion is uninterpretable due to the baseline changes 2. No LexiScan induced chest pain or cardiac arrhythmia 3. Normal blood pressure and heart rate response 4. Sestamibi/sestamibi perfusion scan pending; see separate report. Electronically Signed On 02-22-2025 11:28:15 CDT by So Luciano M.D. [email or web address]
[2025-02-19] MEDS: regadenoson 0.4 Mg/5 ml Syringe IVP (08:43)
[2025-02-19] MEDS: aminophylline 25 mg/mL SDV 20 mL IVP ×2 (08:51→08:53)
[2025-02-19 08:58] VITALS: BP 177/91; PULSE 69
== END 2025-02-19 07:06 | disposition home or self-care (01) ==
LOC: CDL 07:08
PROVIDERS: PCP Internal Medicine; Visit Provider Internal Medicine Cardiovascular Disease
DX: R07.9 Chest pain, unspecified (principal)
CPT/HCPCS: 36415; 78452; 93017; 96374; A9500; J0280; J2785

== ENCOUNTER → 2025-05-27 10:37 | Outpatient (BNVA) | payer MEDICARE, SELFPAY | PROVIDERS: PCP Internal Medicine; Visit Provider Family Medicine | DX: E11.9 Type 2 diabetes mellitus without complications (principal); D75.89 Other specified diseases of blood and blood-forming organs; E78.2 Mixed hyperlipidemia | CPT/HCPCS: 80053; 80061; 82607; 82746; 83036; 84443; 85025; 86003; 86008 ==

== ENCOUNTER 2025-05-29 06:14 | Inpatient (IN) | payer MEDICARE, SELFPAY ==
--- OUTSIDE RECORDS SUMMARY | 2025-03-01 05:00 | XMS_ITS ---
Author Organization [facility] Address [address] [place] [address] Care Team Providers Care Refuse Driver Name Role Phone Andrei Noyola Primary Care Provider REASON FOR VISIT MEDICATION, Pt is in need of completion of a Functional Status Assessment, document under Preventative Medicine> screenings> care for older adults (FSA) Encounters Encounter Location Date Provider Diagnosis [facility] [address] [place] [id number] 03/01/2025 Andrei Noyola Plan Of Treatment No Information Progress Notes * Archana LEBRON SDOB:[birth year] (80 yo F)Acc No.[id number]:03/01/2025 Progress Notes Patient: Archana Burgos Provider: Supa Noyola MD :1945 A ge:80 Y S ex:Female Date:03/01/2025 Address:[address] [place], [place] [id number] Subjective: * Chief Complaints: * M EDICATIONPt is in need of completion of a Functional Status Assessment, document under Preventative Medicine> screenings> care for older adults (FSA) Plan: * Procedure Codes: 1 170F FXNL STATUS ASSESSED * Preventive Medicine: Screenings: C ARE FOR OLDER ADULTS Functional Status * Function Status Assessment date * Billing Information: * Procedure Codes: 1170F FXNL STATUS ASSESSED. Care Plan Details* * Electronic signature of Phyllis Noyola MD on 05/29/2025 at 06:19 AM CDT Sign off status: Pending * Provider: Supa Noyola MD Date: 03/01/2025 Generated for Obie garnett/Danielle/Meagan on: 0 05/29/2025 06:19 AM AKIL
[2025-05-29] VITALS (13 sets, daily range): BP systolic 102–202; BP diastolic 64–99; PULSE 60–79; RESP 16–19; TEMP 36.6–36.8; O2SAT 93–97; BMI 37.1
--- OUTSIDE RECORDS SUMMARY | 2025-05-29 06:20 | XMS_ITS | Encounter Summary ---
Author Organization [facility] Address [address] [place] [address] Care Team Providers Care Mine Wirer Name Role Phone Angela Dennis JEREMÍAS Primary Care Provider [phone]- [phone] Reason for Referral * CT Scan (Routine) - Closed Specialty Diagnoses / Procedures Referred By Nolberto phelps Referred To Contact Diagnoses Critical aortic valve stenosis Procedures CT CARDIAC CHEST INTERPRETATION Mo Avila MD Phone: tel: fax: Referral ID Status Reason Start Date Expiration Date Visits Re quested Visits Authorized [id number] Closed 03/10/2019 01/22/2020 1 1 Encounter Details Date Type Department Care Team (Late st Contact Info) Description 03/10/2019 Ancillary Orders [facility] [place] [address] [place] [address] Mo Avila MD [address] [facility] [address] [place] [address] Critical aortic valve stenosis Social History Tobacco Use Types Packs/Day Years Used Date Smoking Tobacco: Never Smokeless Tobacco: Never Alcohol Use Standard Drinks/Week Comments Never 0 (1 standard drink = 0.6 oz pur e alcohol) Comments No Sex and Gender Information Value Date Recorded Sex Assigned at Not on file Legal Sex Female 9:57 AM CDT Gender Identity Not on file Sexual Orientation Not on file documented as of this encounter Plan of Treatment Not on file documented as of this encounter Results * CT CARDIAC CHEST INTERPRETATION (03/10/2019 12:10 PM CDT) Anatomical Region Laterality Modality Chest Computed Tomogra phy 03/10/2019 12:1 0 PM CDT Impressions 03/11/2019 6:04 AM CDT IMPRESSION: Please see below. Exam: CT CARDIAC CHEST INTERPRETATION Date/Time of Exam: 03/10/2019 12:10 PM Reason For Exam: aortic valve stenosis Diagnosis: Critical aortic valve stenosis Technique: CT of the chest was performed following the administration of intravenous contrast. Cardiac portion of the exam to be interpreted by cardiology department. Contrast: 110 mL [id number] Findings: Limited CT chest demonstrates some atelectasis or scarring adjacent to osteophytic spurring within the medial right lower lobe. No pleural effusion or pneumothorax. No concerning soft tissue pulmonary opacities. No enlarged lymph nodes. Small hiatal hernia. Limited visualization of the upper abdominal viscera demonstrates no acute findings. No acute osseous findings. IMPRESSION: No acute findings. [id number] Narrative Procedure Note Lester Cruz MD - 03/11/2019 IMPRESSION: Please see below. Exam: CT CARDIAC CHEST INTERPRETATION Date/Time of Exam: 03/10/2019 12:10 PM Reason For Exam: aortic valve stenosis Diagnosis: Critical aortic valve stenosis Technique: CT of the chest was performed following the administration of intravenous contrast. Cardiac portion of the exam to be interpreted by cardiology department. Contrast: 110 mL Isovue-370 Findings: Limited CT chest demonstrates some atelectasis or scarring adjacent to osteophytic spurring within the medial right lower lobe. No pleural effusion or pneumothorax. No concerning soft tissue pulmonary opacities. No enlarged lymph nodes. Small hiatal hernia. Limited visualization of the upper abdominal viscera demonstrates no acute findings. No acute osseous findings. IMPRESSION: No acute findings. [id number] ORDERABLES Final Result documented in this encounter Visit Diagnoses Diagnosis Critical aortic valve stenosis Aortic valve disorders Critical aortic valve stenosis Aortic valve disorders documented in this encounter Care Teams Mine Wirer Relationship Specialty Start Date End Date Angela Dennis APRN PCP - General Nurse Practitioner Family 05/24/20 documented as of this encounter
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
--- OUTSIDE RECORDS SUMMARY | 2025-05-29 06:20 | XMS_ITS | Clinical Summary ---
Author Organization [facility] Address [address] [place]: Epic Prelude ADT [place] [address] Care Team Providers Care Cab Station Attendant Name Role Phone Angela Dennis APRN Primary Care Provider [phone]- [phone] Allergies Active Allergy Reactions Criticality Noted Date [...] mg(1,500mg) -200 unit Tablet Take by mouth. 02/19/2019 Active multivitamin (DAILY-PARVEEN) tablet Take 1 Tablet by mouth daily. 02/19/2019 Active vitamin E 400 unit capsule Take 400 Units by mouth daily. 02/19/2019 Active coenzyme Q10 Capsule Take 10 mg by mouth daily. 02/19/2019 Active omega-3 fatty acids-fish oil 300-1,000 mg Capsule Take by mouth daily. 02/19/2019 Active atorvastatin (LIPITOR) 80 mg tablet Take 80 mg by mouth daily with supper. 02/19/2019 Active loratadine (CLARITIN) 10 mg tablet Take 10 mg by mouth daily. 02/19/2019 Active nitroglycerin (NITROSTAT) 0.4 mg Tablet, Sublingual Place 0.4 mg under tongue every 5 minutes as needed for Chest Pain (never taken) . 02/19/2019 Active clopidogreL (PLAVIX) 75 mg Tablet Take 75 mg by mouth. 02/19/2019 Active Potassium 99 mg Tablet Take by mouth. 02/19/2019 Active clonazePAM (KlonoPIN) 0.5 mg Tablet Take 0.5 mg by mouth 2 times daily. 02/19/2019 Active losartan (COZAAR) 25 mg tablet Take 25 mg by mouth daily. 05/20/2019 Active furosemide (LASIX) 20 mg tablet Take 20 mg by mouth daily. prn 05/25/2020 Active metoprolol tartrate (LOPRESSOR) 25 mg tablet Take 25 mg by mouth 2 times daily. 05/25/2020 Active omeprazole (PriLOSEC) 20 mg Capsule, Delayed Release(E.C.) Take 20 mg by mouth daily. OTC 05/25/2020 Active Active Problems Problem Noted Date Diagnosed Date Obesity (BMI 30.0-34.9) 05/21/2019 History of coronary artery stent placement 05/20 ASHD (arteriosclerotic heart disease) 05/20/2019 Severe aortic stenosis 05/20/2019 Gastroesophageal reflux disease without esophagi tis 05/20/2019 HTN (hypertension), benign 05/20/2019 S/P TAVR (transcatheter aortic valve replacement ) 05/20/2019 Hyperlipidemia IBS (irritable bowel syndrome) Family History Medical History Relation Name Comments Heart Disease Brother High Cholesterol Brother Hypertension Brother Diabetes Mother Relation Name Status Comments Brother Mother Social History Tobacco Use Types Packs/Day Years Used Date Smoking Tobacco: Never Smokeless Tobacco: Never Alcohol Use Standard Drinks/Week Comments Never 0 (1 standard drink = 0.6 oz pur e alcohol) Comments Unknown Sex and Gender Information Value Date Recorded Sex Assigned at Not on file 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 Gender Identity Not on file Sexual Orientation Not on file Last Filed Vital Signs Vital Sign Reading Time Taken Comments Blood Pressure 120/78 05/25/2020 2:48 PM CDT Pulse 60 05/25/2020 2:48 PM CDT Temperature 36.5 C (97.7 F) 05/21/2019 2:05 PM CDT Respiratory Rate 16 05/21/2019 1:25 PM CDT Oxygen Saturation - - Inhaled Oxygen Concentration - - Weight 76.5 [...] (#1) 2025 Medical Devices Implanted Type Area Yardage Caller Device Identifier Shelf Expiration Date Model / Serial / Lot Valve-05/20/2019 Implanted:Qty: 1 on 05/20/2019 by Truong Noyola MD Valve [employer]- HEART VALVE [id number] 03/19/2021 / [id number] / Care Teams Cab Station Attendant Relationship Specialty Start Date End Date Angela Dennis APRN PCP - General Nurse Practitioner Family 05/24/20
--- OUTSIDE RECORDS SUMMARY | 2025-05-29 06:20 | XMS_ITS | Encounter Summary ---
Author Organization [facility] Address [address] [place] [address] Care Team Providers Care Agricultural Specialist Name Role Phone Angela Dennis APRN Primary Care Provider [phone]- [phone] Encounter Details Date Type Department Care Team (Late st Contact Info) Description 03/24/2019 Ancillary Orders [facility] External Department [address] [place] [id number] [facility], External Provider [address], [place] [address] Severe calcific aortic stenosis Social History Tobacco Use Types Packs/Day [...] documented as of this encounter Results * ECHO PRIOR STUDY (01/15/2019 2:00 PM CDT) Narrative [facility] - 03/24/2019 11:35 AM CDT This exam was auto finalized to allow images to be scanned to PACS. Procedure Note Alesha Raymond - 03/24/2019 This exam was auto finalized to allow images to be scanned to PACS. us External Provider [facility] ORDERABLES Final Resu lt [facility] documented in this encounter Visit Diagnoses Diagnosis Severe calcific aortic stenosis Aortic valve disorders Severe calcific aortic stenosis Aortic valve disorders documented in this encounter Care Teams Agricultural Specialist Relationship Specialty Start Date End Date Angela Dennis, CV TECH PCP - General Nurse Practitioner Family 05/24/20 documented as of this encounter
--- OUTSIDE RECORDS SUMMARY | 2025-05-29 06:20 | XMS_ITS | Patient Health Record ---
Author Organization [facility] Address [address] [place] [address] Care Team Providers Care Chief Psychology Name Role Phone Andrei Noyola Primary Care Provider Allergies Allergen (clinical drug ingredient) Drug/Non Drug Allergy documented on EMR Reaction Allergy Type Onset Date Status Levaquin Unknown Drug Allergy Active lincomycin lincocin Unknown Drug Allergy Active Penicillin Unknown Drug Allergy Active Substance with sulfonamide structure and antibacterial mechanism of action (substance) Sulfa Antibiotics Unknown Drug Allergy Active Results Component Value Reference Range Notes EGD w [id number] Reviewed date:08/06/2024 01:22:38 PM Interpretation: Performing Lab: Notes/Report: EGD, Upper GI Diagnostic-[id number] Reviewed date:07/30/2024 11:59:38 AM Interpretation: Performing Lab: Notes/Report: Reason For Referral No Information Medications Medication SIG (Take, Route, Frequency, Duration) Notes Start Date End Date Status Fish Oil 1000 MG Capsule 1 capsule Orall y Once a day Active Carvedilol 25 MG Tablet 1 tablet with fo od Orally Twice a day Active Atorvastatin Calcium 80 MG Tablet 1 tablet Orally Twice a day Active Metoprolol Tartrate 25 MG Tablet 1 tablet with food Orally Twice a day Not-Taking Lisinopril 20 MG Tablet 1 tablet Orally Once a day Active Loratadine 10 MG Tablet 1 tablet Orally Once a day Active Levocetirizine Dihydrochloride 5 mg Tablet TAKE ONE TABLET BY MOUTH DAILY; Duration: 90 Active CoQ10 30 MG Capsule 1 capsule with a brad l Orally Once a day Active Clopidogrel Bisulfate 75 mg Tablet TAKE ONE TABLET BY MOUTH EVERY DAY; Duration: 30 Active Calcium 500 MG Tablet 1 tablet with meal s Orally Twice a day Active Pantoprazole Sodium 40 mg Tablet Delayed Release TAKE 1 TABLET BY MOUTH EVERY DAY *stop omeprazole*; Duration: 90 Active clonazePAM 0.5 MG Tablet 1 tablet Orally every six hours as needed; Duration: 30 days 01/14/2025 Active Vitamin E 400 UNIT Capsule 1 capsule Ora lly Once a day Active Nitrostat 0.4 MG Tablet Sublingual as directed Sublingual Active Montelukast Sodium 10 mg Tablet TAKE 1 TABLET BY MOUTH ONCE a day; Duration: 30 Active Immunizations Vaccine Route Administration Date Status Comme nts Flucelvax Trivalent, Syringe 0.5 mL, PF Unknown 12/16/2024 Administered Social History Tobacco Use: Social History Observation Description Date Details (start date - stop date) Never Smoker NA - NA Social History Depression Screening Social Info Question Answer Notes depression screening findings Findings Negative (0 -4) 01/14/25 PHQ-9 Little interest or p kenya in doing things Not at all Feeling down, depressed, or hopeless Not at all Trouble falling or staying asleep, or sleeping t oo much Not at all Feeling tired or having little energy Not at all Poor appetite or overeating Not at all Feeling bad about yourself, or that you are a failure, or have let yourself or your family down Not at all Trouble concentrating on thi ngs, such as reading the newspaper or watching television Not at all Moving or speaking so slowly that other people could have noticed. Or the opposite ? being so fidgety or restless that you have been moving around a lot more than usual Not at all Thoughts that you would be b nathalie off , or of hurting yourself in some way Not at all Total Score 0 Drugs/Alcohol: Social Info Question Answer Notes Alcohol Screen (Audit-C) Did you have a drink containing alcohol in the past year? No Points 0 Interpretation Negative Drugs Have you used drugs other than those for medical reasons in the past 12 months? No Tobacco Use: Social Info Question Answer Notes Tobacco Control (Standard) Tobacco use: Nonsmoker Section Notes: CIME Dep/tob - 01/14/25 Dep/tob - 07/14/24 CIME Dep/tob - 01/14/25 Problems Problem Type SNOMED Code ICD Code Onset Dates Problem Status W/U Status Risk Notes Problem Mixed hyperlipidemia (658162803) Mixed hyperlipidemia (E78.2) Active confirmed Problem Generalized abdominal pain (868949536) Generalized abdominal pain (R10.84) Active confirmed Problem Anxiety (58121317) Anxiety (F41.9) Active confirmed Problem Secondary hypertension (19797005) Secondary hypertension (I15.9) Active confirmed Problem Right anterior knee pain (M25.561) Active confirmed Problem Seasonal allergy (166999918) Seasonal allergies (J30.2) Active confirmed Problem Morbid obesity (754746458) Morbid obesity (E66.01) Active confirmed Problem Stented coronary artery (398910104) Stented coronary artery (Z95.5) Active confirmed Problem Erosive gastritis (6341804974919786 ) Gastritis, erosive (K29.60) Active confirmed Vital Signs Heart Rate 77 /min 03/26/2025 Temperature 97.8 degrees Fahrenheit 03/26/2025 Blood pressure diastolic 82 mm Hg 03/26/2025 Oximetry 96 % 03/26/2025 Height-cm 149.86 cm 03/26/2025 Weight-kg 83.46 kg 03/26/2025 Height 59 in 03/26/2025 Blood pressure systolic 143 mm Hg 03/26/2025 Weight 184 lbs 03/26/2025 BMI 37.16 kg/m2 03/26/2025 Procedures Procedure Date Ordered Date Performed Result Body Sit e DRAIN/INJ JOINT/BURSA W/O US 12/15/2024 12/18/2024 N/A Encounters Encounter Location Date Provider Diagnosis [facility] [address] [place] [phone] 07/14/2024 Andrei Noyola Anxiety F41.9 ; Generalized abdominal pain R10.84 ; Stented coronary artery Z95.5 ; Mixed hyperlipidemia E78.2 ; Secondary hypertension I15.9 ; Muscular aches M79.10 and Depression screen Z13.31 [facility] [address] [place] [phone] 07/28/2024 Andrei Noyola Secondary hypertensi on I15.9 ; Anxiety F41.9 and Generalized abdominal pain R10.84 [facility] [address] [place] [address] 07/29/2024 Andrei Noyola Abdominal pain, unspecified abdominal location R10.9 and Gastritis, erosive K29.60 [facility] [address] [place] [phone] 08/14/2024 Andrei Nyoola Gastritis, erosive K29.60 [facility] [address] [place] [phone] 12/15/2024 Andrei Noyola Secondary hypertensi on I15.9 ; Stented coronary artery Z95.5 ; Mixed hyperlipidemia E78.2 ; Morbid obesity E66.01 ; BMI 37.0-37.9, adult Z68.37 and Right anterior knee pain M25.561 [facility] [address] [place] [address] 01/14/2025 Andrei Noyola Anxiety F41.9 ; Righ t anterior knee pain M25.561 ; Mixed hyperlipidemia E78.2 ; Stented coronary artery Z95.5 and Depression screen Z13.31 [facility] [address] [place] [address] 03/26/2025 Andrei Noyola Secondary hypertensi on I15.9 ; Mixed hyperlipidemia E78.2 ; Gastritis, erosive K29.60 ; Generalized abdominal pain R10.84 ; Seasonal allergies J30.2 and Depression screen Z13.31 [facility] [address] [phone] 07/14/2024 Andrei Noyola [facility] [address] [phone] 10/26/2024 Andrei Noyola Anxiety F41.9 [facility] [address] [phone] 05/17/2025 Andrei Noyola [facility] [address] [place] [phone] 05/17/2025 Andrei Noyola Anxiety F41.9 Assessments Encounter Date Diagnosis (ICD Code) Assessment Notes Treatment Notes Treatment Clinical Notes Section Notes 07/14/2024 Anxiety (ICD-10 - F41.9) 07/29/2024 Abdominal pain, unspecified abdominal location (ICD-10 - R10.9) 07/29/2024 Gastritis, erosive (ICD-10 - K29.60) 08/14/2024 Gastritis, erosive (ICD-10 - K29.60) 10/26/2024 Anxiety (ICD-10 - F41.9) 12/15/2024 Secondary hypertension (ICD-10 - I15.9) Great control 12/15/2024 Stented coronary artery (ICD-10 - Z95.5) No chest pain 07/14/2024 Generalized abdominal pain (ICD-10 - R10.84) -x-- to be completed at [facility] ---to be completed at [facility] ---to be completed at [facility] ---to be completed at [facility] 07/28/2024 Secondary hypertension (ICD-10 - I15.9) 01/14/2025 Anxiety (ICD-10 - F41.9) explained to patient that she is to be decreasing the usage of clonazepam. I will only prescribe 45 tablets and subsqtly decrease next month. She will only use on a PRN basis. Approved to fill early today with pharmacy. 03/26/2025 Secondary hypertension (ICD-10 - I15.9) 05/17/2025 Anxiety (ICD-10 - F41.9) 03/26/2025 Mixed hyperlipidemia (ICD-10 - E78.2) 01/14/2025 Right anterior knee pain (ICD-10 - M25.561) 07/28/2024 Anxiety (ICD-10 - F41.9) 12/15/2024 Mixed hyperlipidemia (ICD-10 - E78.2) 07/14/2024 Stented coronary artery (ICD-10 - Z95.5) 07/14/2024 Mixed hyperlipidemia (ICD-10 - E78.2) 12/15/2024 Morbid obesity (ICD-10 - E66.01) 07/28/2024 Generalized abdominal pain (ICD-10 - R10.84) 01/14/2025 Mixed hyperlipidemia (ICD-10 - E78.2) 03/26/2025 Gastritis, erosive (ICD-10 - K29.60) 03/26/2025 Generalized abdominal pain (ICD-10 - R10.84) 03/26/2025 Seasonal allergies (ICD-10 - J30.2) 01/14/2025 Stented coronary artery (ICD-10 - Z95.5) 12/15/2024 BMI 37.0-37.9, adult (ICD-10 - Z68.37) 07/14/2024 Secondary hypertension (ICD-10 - I15.9) 12/15/2024 Right anterior knee pain (ICD-10 - M25.561) 01/14/2025 Depression screen (ICD-10 - Z13.31) 07/14/2024 Muscular aches (ICD-10 - M79.10) I have asked her to hold her statin for a week to see if she doesn't feel better. 03/26/2025 Depression screen (ICD-10 - Z13.31) 07/14/2024 Depression screen (ICD-10 - Z13.31) 07/29/2024 Other see scanned document from [facility] in patients documents. 08/14/2024 Other continue current regimen Plan Of Treatment No Information Insurance Providers Payer Name Payer Address Payer Phone Subscriber Number Group Number Insured Name Patient Relationship to Insured Coverage Start Date Coverage End Date [facility] Dual Complete [address] [place] [phone] [id number] Archana Franklin Self - patient is the insured [place] Medicaid [address] [place] [address] [id number] Archana Franklin Self - patient is the insured [place] Medicare [address] [place] [phone] [id number] Archana Franklin Self - patient is the insured Medications Administered Medication Instructions Date of Administration Dosage Notes BUPivacaine HCl 12/15/2024 1 mL DEPO-Medrol 12/15/2024 80 mg Medical (General) History Medical History History ICD Code hypertension anxiety hyperlipidemia GERD Stents x 4 Metal valve Surgical History Surgery Date(Month/Year) hysterectomy appendectomy cholecystectomy heart stents x 4 EGD heart valve
--- NOTE | 2025-05-29 06:31 | XRR_ITS ---
PROCEDURE INFORMATION: Exam: XR Chest Exam date and time: 05/29/2025 6:41 AM Age: 80 years old Clinical indication: Cough and dyspnea; Additional info: Dyspnea/cough TECHNIQUE: Imaging protocol: Radiologic exam of the chest. Views: 1 view. COMPARISON: CR XR chest 1V portable [id number] 11/09/2024 5:38 AM FINDINGS: Lungs: Unremarkable. No consolidation. Pleural spaces: Unremarkable. No pleural effusion. No pneumothorax. Heart/Mediastinum: There has been an aortic valve replacement. Vasculature: There are aortic arch calcifications. There is unfolding of the thoracic aorta. Bones/joints: Mild degenerative disease of bilateral acromioclavicular joints. XR/XR chest 1V portable [id number] IMPRESSION: No acute cardiopulmonary process.
[2025-05-29 06:37] LABS: Hematocrit 40.8 % (36-47); Hemoglobin 13.50 g/dL (11.27-16.99); Mean Corpuscular HGB Conc 33.1 g/dL (30-55); Mean Corpuscular Hemoglobin 32.6 pg (27-33); Mean Corpuscular Volume 98.6 fl (85-98); Nucleated Red Blood Cells % 0 %; Platelet Count 127 10^3/cmm (157-399); Red Blood Count 4.14 10^6/uL (3.85-5.65); White Blood Count 4.63 10^3/uL (3.29-11.43)
--- NOTE | 2025-05-29 06:49 | W.ED.SOB ---
HPI - SOB/Dyspnea General: Chief Complaint: Shortness of Breath/Dyspnea Stated Complaint: choking episode Time Seen by Provider: 05/29/25 06:29 History of Present Illness: HPI Narrative: 72-year-old female history of coronary disease had multiple stents in the past presents emergency room with complaints of chest discomfort and a choking sensation she has had intermittently for the last 2 weeks. Today she had discomfort radiate up into her neck and into her shoulder she had similar symptoms previously in the last 2 weeks but not as intense as at this time took nitro had relief of symptoms. Patient does not smoke is nondiabetic. Associated symptoms: Deny abdominal pain, chest pain or fever(s) Related Data Home Medications ?Medication ?Instructions ?Recorded ?Confirmed atorvastatin 80 mg tablet 80 mg PO DAILY 11/09/24 05/29/25 clopidogrel 75 mg tablet 75 mg PO DAILY 11/09/24 05/29/25 furosemide 20 mg tablet 20 mg PO BID 11/09/24 05/29/25 levocetirizine 5 mg tablet 5 mg PO DAILY 11/09/24 05/29/25 pantoprazole 40 mg tablet,delayed 40 mg PO DAILY 11/09/24 05/29/25 release potassium chloride 8 mEq 8 meq PO DAILY 11/09/24 05/29/25 tablet,extended release montelukast 10 mg tablet 10 mg PO DAILY 05/27/25 05/29/25 acetaminophen 500 mg tablet 1,000 mg PO Q6H PRN Fever Or Pain 05/29/25 05/29/25 (Tylenol Extra Strength) clonazepam 0.5 mg tablet 0.5 mg PO Q6H PRN Anxiety 05/29/25 05/29/25 coenzyme Q10 100 mg capsule 100 mg PO DAILY 05/29/25 05/29/25 (CoQ-10) ibuprofen 200 mg tablet (Advil) 400 mg PO Q6H PRN Fever Or Pain 05/29/25 05/29/25 omega 6-xdt-mju-fish oil 100 1 cap PO DAILY 05/29/25 05/29/25 mg-160 mg-1,000 mg capsule (Fish Oil) omeprazole magnesium 20 mg 20 mg PO DAILY PRN Acid Reflux 05/29/25 05/29/25 tablet,delayed release (Prilosec OTC) vitamin E 670 mg (1,000 unit) 670 mg PO DAILY 05/29/25 05/29/25 capsule Previous Rx's ?Medication ?Instructions ?Recorded nitroglycerin 0.4 mg sublingual 0.4 mg sublingual Q5M PRN chest 07/05/22 tablet (Nitrostat) pain #30 tabs carvedilol 25 mg tablet 25 mg PO BID 90 days #180 tabs 02/04/25 losartan 100 mg tablet 100 mg PO DAILY #90 tabs 02/04/25 sertraline 25 mg tablet (Zoloft) 25 mg PO DAILY #30 tabs 05/27/25 Allergies Allergy/AdvReac Type Severity Reaction Status Date / Time Alpha-Gal Allergy Severe shortness Verified 05/27/25 09:02 (Heyoxrgqm-Jcwum-1,3-Gala of breath, lips swell, rash carisoprodol Allergy Unknown Unknown Verified 05/27/25 08:56 levofloxacin (From Levaquin) Allergy Unknown ADR-Heartbu Verified 05/27/25 08:56 rn Penicillins Allergy Unknown ALGY-Swell Verified 05/27/25 08:56 Lip/Tongue/Throat streptomycin Allergy Unknown ALGY-Rash Verified 05/27/25 08:56 Sulfa (Sulfonamide Allergy Unknown ALGY-Rash Verified 05/27/25 08:56 Antibiotics) aspirin Allergy ADR-Gastrointestinal Verified 05/29/25 09:08 Upset fentanyl Allergy Unknown Verified 05/29/25 09:08 hydrocodone Allergy Unknown Verified 05/29/25 09:08 metformin Allergy diarrhea Verified 05/27/25 08:56 Tetracyclines Allergy nausea Verified 05/27/25 08:56 Review of Systems Const: Denies: fever(s) or chills Card: Denies: chest pain Resp: Denies: dyspnea GI: Denies: abdominal pain : Denies: dysuria, urinary frequency or urinary urgency Musc: Denies: neck pain or back pain Skin/Breast: Denies: rash PFSH ED PFSH: Medical History Left leg swelling Obesity, unspecified BMI 30.0-34.9 Type 2 diabetes mellitus without complications Anxiety feels controlled with meds Aortic heart murmur Arteriosclerotic heart disease (ASHD) Fatty infiltration of liver Adnexal cyst Encounter for counseling for care management of patient with chronic conditions and complex health needs using nurse-based model Enrolled in chronic care management Seasonal allergies Mixed hyperlipidemia Essential (primary) hypertension Gastro-esophageal reflux disease without esophagitis Surgical History History of meniscectomy of left knee Hx of hysterectomy still has ovaries Hx of appendectomy Hx of cholecystectomy Hx of angioplasty stent's x 3 H/O aortic valve replacement TAVR S/P knee surgery X2 Family History Family/Other No pertinent family history Lung disease Brother CAD (coronary artery disease) Mother Dementia Stroke Sister Diabetes Father Suicide Denies family history of Clotting disorder Chronic kidney disease (CKD) Anesthesia complication Bleeding disorder Cancer Social History Smoking and tobacco/nicotine status: never used tobacco/nicotine Second hand smoke exposure: No Alcohol intake: never Substance/Drug Use: never Adopted: No Caregiver/support person: Yes (family) Lives independently: Yes Household members: none Housing: House Marital status: / Number of children: 3 service: No Current occupational status: retired Current gender identity: Female Rosi/Protestant: Jehovah'S Witness Special rosi needs: No Agree to transfusion: Yes Physical Exam Const: GENERAL APPEARANCE: cooperative ORIENTATION/CONSCIOUSNESS: Yes awake, Yes oriented to person, Yes oriented to place and Yes oriented to time HENMT: COMMON NORMALS: normocephalic, atraumatic and hearing grossly normal bilaterally HEAD & SCALP: normocephalic and atraumatic Resp: COMMON NORMALS: normal respiratory effort, No retractions, No use of accessory muscles and clear to auscultation bilaterally AUSCULTATION: clear to auscultation bilaterally Cardio: COMMON NORMALS: regular rate, regular rhythm and No murmurs present (Cardio) RATE: regular rate RHYTHM: regular rhythm GI: COMMON NORMALS: Soft to palpation and No hepatosplenomegaly present AUSCULTATION: Yes normoactive bowel sounds PALPATION: Yes Soft to palpation, No Tenderness to palpation present (GI), No Guarding due to palpation present (GI) and Yes No hepatosplenomegaly present Extremity: COMMON NORMALS: normal to inspection, capillary refill normal, no clubbing, cyanosis or edema, no calf tenderness and no pedal edema Neuro: SENSORIUM/ORIENTATION: Yes oriented to person, Yes oriented to place and Yes oriented to time Skin: COMMON NORMALS: no rashes or lesions noted GENERAL SKIN EXAM: no rashes or lesions noted Course Vital Signs: Vital signs: Vital Signs Temperature 97.9 F 05/29/25 12:00 Pulse Rate 63 05/29/25 12:00 Respiratory Rate 19 H 05/29/25 12:00 Blood Pressure 202/74 05/29/25 13:30 Pulse Oximetry 93 05/29/25 12:00 Oxygen Delivery Me thod Room Air 05/29/25 11:02 MDM - SOB/Dyspnea Medical Decision Making Progressive unstable angina relieved by nitro. Patient had a cardiac stress test in February of this year that was read as normal as a Lexiscan test. She has known history of heart disease. Given a history of relief with nitro progressive symptoms while at rest will admit for unstable angina consult cardiology. EKG showed left bundle branch block no other acute abnormalities a left bundle branch block is established and was seen on previous EKGs. Second troponin shows a mild increase with a delta troponin of +6 discussed with hospitalist and with cardiology. Cardiology had asked that we anticoagulate with heparin. Heparin flex is a conflict with her allergies with her alpha gal. I contacted pharmacy they evaluated it and looked up the literature that both heparin and Lovenox can cause problems with alpha gal. Patient could take Arixtra. By the time we had determined all this patient had been transferred to the floor I contacted Dr. Yadav to inform him of pharmacology's findings. Also discussed with Suzi Alvarez and advised her that the patient was on the floor and Dr. Ambriz was the attending. Directed Dr. Ambriz to inpatient pharmacy had further questions Medical Records I reviewed the patient's medical records. Lab Data I reviewed the patient's lab results. 05/29/25 06:21 05/29/25 07:17 Labs/Radiology: Radiology Impressions Chest X-Ray 05/29/25 06:31 IMPRESSION: No acute cardiopulmonary process. Laboratory Results WBC 4.63 10^3/uL (3.29-11.43) 05/29/25 06:21 RBC 4.14 10^6/uL (3.85-5.65) 05/29/25 06:21 Hgb 13.50 g/dL (11.27-16.99) 05/29/25 06:21 Hct 40.8 % (36-47) 05/29/25 06:21 MCV 98.6 fl (85-98) H 05/29/25 06:21 MCH 32.6 pg (27-33) 05/29/25 06:21 MCHC 33.1 g/dL (30-55) 05/29/25 06:21 RDW 12.7 % (12.1-15.1) 05/29/25 06:21 Plt Count 127 10^3/cmm (157-399) L 05/29/25 06:21 MPV 14.0 fL (7.4-10.4) H 05/29/25 06:21 Neut % (Auto) 48.2 % 05/29/25 06:21 Lymph % (Auto) 29.8 % 05/29/25 06:21 York % (Auto) 17.3 % 05/29/25 06:21 Eos % (Auto) 3.2 % 05/29/25 06:21 Baso % (Auto) 1.3 % 05/29/25 06:21 Neut # (Auto) 2.23 10^3/uL (1.8-7.7) 05/29/25 06:21 Lymph # (Auto) 1.4 10^3/uL (0.8-4.8) 05/29/25 06:21 York # (Auto) 0.8 10^3/uL (0.2-0.9) 05/29/25 06:21 Eos # (Auto) 0.2 10^3/uL (0.0-0.8) 05/29/25 06:21 Baso # (Auto) 0.1 10^3/uL (0.0-0.1) 05/29/25 06:21 Nucleated RBC % (auto) 0 % 05/29/25 06:21 Nucleated RBCs # 0.0 /100WBC 05/29/25 06:21 Sodium 142 mmol/L (136-145) 05/29/25 07:17 Potassium 3.8 mmol/L (3.5-5.1) 05/29/25 07:17 Chloride 105 mmol/L (98-107) 05/29/25 07:17 Carbon Dioxide 26 mmol/L (22-29) 05/29/25 07:17 Anion Gap 14.8 (5-19) 05/29/25 07:17 BUN 9 mg/dL (8-23) 05/29/25 07:17 Creatinine 0.8 mg/dL (0.5-0.9) 05/29/25 07:17 GFR Calculation Not Reportable 05/29/25 07:17 Glucose 152 mg/dL (65-115) H 05/29/25 07:17 Estimat Average Glucose 166 05/29/25 06:21 Hemoglobin A1c 7.4 % (4.0-6.0) H 05/29/25 06:21 Calculated Osmolality 296 mOsm/kg (285-295) H 05/29/25 07:17 Calcium 9.1 mg/dL (8.5-10.5) 05/29/25 07:17 Total Bilirubin 0.6 mg/dL (0.15-1.2) 05/29/25 07:17 AST 32 U/L (0-32) 05/29/25 07:17 ALT 28 U/L (0-33) 05/29/25 07:17 Alkaline Phosphatase 60 U/L (35-105) 05/29/25 07:17 Troponin T Baseline 13 ng/L (0-10) H 05/29/25 06:21 Troponin T 120 Minute 16.59 ng/L (0-10) H 05/29/25 08:25 Delta Troponin T 3.59 ABS# (0-10) 05/29/25 08:25 Total Protein 6.6 g/dL (6.6-8.7) 05/29/25 07:17 Albumin 4.0 g/dL (3.5-5.2) 05/29/25 07:17 Globulin 2.6 g/dL (1.3-4.6) 05/29/25 07:17 Triglycerides 146 mg/dL (0-150) 05/29/25 07:17 Cholesterol 141 mg/dL (0-200) 05/29/25 07:17 LDL Cholesterol, Calc 72 mg/dL (50-129) 05/29/25 07:17 HDL Cholesterol 40 mg/dL (60-100) L 05/29/25 07:17 LDL/HDL Ratio 1.80 RATIO (0.00-3.22) 05/29/25 07:17 Cholesterol/HDL Ratio 3.53 mg/dL (0.0-4.40) 05/29/25 07:17 TSH 2.54 uIU/mL (0.27-4.20) 05/29/25 07:17 All radiology interpretation(s) finalized by discharge EKG Data EKG 1: Interpretation: EKG 05/29/2025 704. Patient is sinus rhythm first-degree AV block rate of 68 QT interval 418. Left bundle branch block present was present on previous EKGs otherwise unchanged Discharge Plan Discharge Patient Disposition: Admitted As Inpatient Admit Provider: Surendra Ambriz Clinical Impression: Unstable angina, Arteriosclerotic heart disease (ASHD) Type 2 diabetes mellitus without complications Qualifiers: Diabetes mellitus correction insulin use: without correction use Qualified Code(s): E11.9 - Type 2 diabetes mellitus without complications Condition: Stable Coding Level of Care Code ED Box Blank Machine Operator Helper for Morris Ramos
--- NOTE | 2025-05-29 07:04 | ECG_ITS ---
[facility] Date: 2025-05-29 Pat Name: Archana Franklin Department: Room: Gender: Female Business Support Administrator: : 1945 Requested By: Devyn Barajas Order Number: [id number] Koko MD: Isrrael Mayers M.D. Measurements Intervals Casar Rate: 68 P: 38 DC: 228 QRS: -16 QRSD: 146 T: 121 QT: 418 QTc: 447 Interpretive Statements SINUS RHYTHM WITH FIRST DEGREE AV BLOCK LEFT BUNDLE BRANCH BLOCK [120+ ms QRS DURATION, 80+ ms Q/S IN V1/V2, 85+ ms R IN I/aVL/V5/V6] Compared to ECG 02/04/2025 16:45:15 No significant changes Electronically Signed On 05-29-2025 21:41:12 CDT by Isrrael Mayers M.D. [email or web address] [id number]
[2025-05-29 07:14] LABS: Troponin(5th) Baseline 13 ng/L (0-10)
[2025-05-29] MEDS: nitroglycerin 1 gm/inch oint Pkt 0.5 INCH TOPICAL (07:39)
--- NOTE | 2025-05-29 07:46 | PC.NURSE ---
THIS NURSE BROUGHT IN ORDERED 324 ASPIRIN FOR PT TO TAKE. PT REFUSED. PT WAS EDUCATED BY THIS NURSE ON THE NEED FOR THE ASPIRIN. PT STILL REFUSED AND STATED THAT DR. HIGGINBOTHAM TOLD HER NOT TO TAKE IT. DR. PEACE NOTIFIED. DR. PEACE WENT IN TO PT ROOM AND EDUCATED PT AGAIN ON THE NEED. PT STILL REFUSED TO TAKE IT.
[2025-05-29 07:49] LABS: Alanine Aminotransferase 28 U/L (0-33); Albumin Level 4.0 g/dL (3.5-5.2); Alkaline Phosphatase 60 U/L (35-105); Anion Gap 14.8 (5-19); Aspartate Amino Transferase 32 U/L (0-32); Blood Urea Nitrogen 9 mg/dL (8-23); Calcium 9.1 mg/dL (8.5-10.5); Carbon Dioxide 26 mmol/L (22-29); Chloride 105 mmol/L (98-107); Creatinine Clr Calc Pharmacy 76.3610; Globulin 2.6 g/dL (1.3-4.6); Glucose 152 mg/dL (65-115); Osmolality Calculated 296 mOsm/kg (285-295); Potassium 3.8 mmol/L (3.5-5.1); Sodium 142 mmol/L (136-145); Total Protein 6.6 g/dL (6.6-8.7)
[2025-05-29 09:02] LABS: Troponin 5 2HR 16.59 ng/L (0-10); Troponin 5 2HR Delta 3.59 ABS# (0-10)
--- NOTE | 2025-05-29 09:34 | ECG_ITS ---
[facility] Test Date: 2025-05-29 Pat Name: Archana Franklin Department: Room: 111 Gender: Female Linux Developer: : 1945 Requested By: Devyn Barajas Order Number: [id number] Koko MD: Isrrael Mayers M.D. Measurements Intervals [place] Rate: 62 P: 42 [place]: 212 QRS: -9 QRSD: 149 T: 128 QT: 451 QTc: 459 Interpretive Statements SINUS RHYTHM WITH FIRST DEGREE AV BLOCK LEFT BUNDLE BRANCH BLOCK [120+ ms QRS DURATION, 80+ ms Q/S IN V1/V2, 85+ ms R IN I/aVL/V5/V6] Compared to ECG 05/29/2025 07:04:36 No significant changes Electronically Signed On 05-30-2025 17:46:56 CDT by Isrrael Mayers M.D. [id number] [id number]
[2025-05-29 10:28] LABS: Estmated Average Glucose 166; Hemoglobin A1C 7.4 % (4.0-6.0)
[2025-05-29 10:35] LABS: Cholesterol 141 mg/dL (0-200); HDL Cholesterol 40 mg/dL (60-100); Thyroid Stimulating Hormone 2.54 uIU/mL (0.27-4.20); Triglycerides 146 mg/dL (0-150)
[2025-05-29] MEDS: pantoprazole 40 mg SDV IVP (10:39)
--- NOTE | 2025-05-29 11:37 | USR_ITS ---
PROCEDURE INFORMATION: Exam: US Duplex Lower Extremity Veins, Bilateral Exam date and time: 05/29/2025 3:32 PM Age: 80 years old Clinical indication: Edema, localized; Lower extremity, bilateral; Additional info: Swelling TECHNIQUE: Imaging protocol: Real-time duplex ultrasound of the bilateral extremities with 2-D burns scale, color Doppler flow and spectral waveform analysis including responses to compression and other maneuvers (when performed) with image documentation. Complete exam focused on the lower extremity veins. COMPARISON: US pelv w/transvag [id number] 07/03/2019 7:10 AM FINDINGS: Right deep veins: Unremarkable. The common femoral, femoral, proximal profunda femoral and popliteal veins are patent without thrombus. Normal Doppler waveforms. Normal compressibility and/or augmentation response. Left deep veins: Unremarkable. The common femoral, femoral, proximal profunda femoral and popliteal veins are patent without thrombus. Normal Doppler waveforms. Normal compressibility and/or augmentation response. Superficial veins: Greater saphenous veins at the saphenofemoral junctions are patent bilaterally without thrombus. Soft tissues: Unremarkable. US/CV venous duplex [facility] [id number] IMPRESSION: NEGATIVE for acute deep venous thrombosis in visualized lower extremity veins.
--- NOTE | 2025-05-29 11:37 | USCV_ITS ---
Archana Franklin Age: 80 Gender: F : 1945 Exam Date: 05/29/2025 15:01 Ordering Phys: Surendra Ambriz MD Technologist: Ar Saucedo Exam Location: [facility] – [place] Indication: chest pain BP: 202 / 74 HR: 60 Rhythm: Sinus Technical Quality: Adequate MEASUREMENTS (Male / Female) Normal Values 2D ECHO LV Diastolic Diameter PLAX 4.5 cm 4.2 - 5.9 / 3.9 - 5.3 cm IVS Diastolic Thickness 0.9 cm 0.6 - 1.0 / 0.6 - 0.9 cm IVS Systolic Thickness 1.1 cm LVPW Diastolic Thickness 0.9 cm 0.6 - 1.0 / 0.6 - 0.9 cm LVPW Systolic Thickness 1.5 cm LVOT Diameter 2.0 cm LV Ejection Fraction 2D Teich 65.5 % LV Ejection Fraction MOD 4C 70.4 % LV Ejection Fraction MOD 2C 61.5 % LV Ejection Fraction 2C AL 66.1 % LA Diameter 3.8 cm RA Systolic Volume 4C AL 14.0 ml RA Systolic Volume 4C MOD 13.7 ml LA Sys Volume AL 30.8 cm cubed LA Sys Volume Index AL 16.2 cm cubed/m squared Aorta at Sinotubular Diameter 2.1 cm IVC Diameter 1.9 cm M-MODE LA Ao Ratio MM 1.6 AV Cusp Separation MM 1.3 cm DOPPLER AV Peak Velocity 237.3 cm/s LVOT Peak Velocity 99.0 cm/s AV Area Cont Eq vti 1.3 cm squared AV Area Cont Eq pk 1.4 cm squared MV Peak Velocity 108.0 cm/s MV Area PHT 2.9 cm squared Mitral E to A Ratio 0.8 TR Peak Velocity 319.0 cm/s TR Peak Gradient 40.7 mmHg TR Mean Velocity 262.0 cm/s TR Mean Gradient 28.7 mmHg TR Velocity Time Integral 98.8 cm PV Peak Velocity 96.0 cm/s RV Ejection Time 0.3 s FINDINGS Left Ventricle Normal left ventricular size, systolic function and wall thickness, with no regional wall motion abnormalities. Left ventricular ejection fraction is 66 %. Grade II/IV diastolic dysfunction, normal left ventricular wall thickness. elevated filling pressures. Right Ventricle Normal right ventricular size and systolic function. Right Atrium Normal right atrial size. Left Atrium Normal left atrial size. Mitral Valve Structurally normal mitral valve. Mild-moderate mitral valve regurgitation. No mitral valve stenosis. Aortic Valve Normal bioprosthetic aortic valve structure and function. Tricuspid Valve Mild tricuspid valve regurgitation. Mild pulmonary hypertension with RVSP 43 mmHg. Pulmonic Valve Structurally normal pulmonic valve. No pulmonary valve stenosis. No pulmonary valve regurgitation. Pericardium No pericardial effusion. Aorta Normal size aortic root and proximal ascending aorta. IVC Normal inferior vena cava. CONCLUSIONS 1. Normal left ventricular and right ventricular size and systolic function. EF 66% 2. Normal bioprosthetic aortic valve structure and function 3. Grade 2 left ventricular diastolic dysfunction 4. Mild to moderate mitral valve regurgitation 5. Mild pulmonary hypertension, RVSP 43 mmHg Isrrael Mayers MD, FACC (Electronically Signed) Final Date: 29 May 2025 19:25 S
--- NOTE | 2025-05-29 12:02 | PM.HP ---
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 currently patient is alert oriented x 3, following all commands, she reports that early this morning she been having upper chest discomfort, did report nitroglycerin to relieve the pain, it is almost like a choking sensation, but no trouble swallowing, no globus sensation, at times trouble catching her breath, she has been having intermittent chest palpitations, feeling short of breath, denies any fevers, no chills, no nausea, no vomiting, no abdominal pain Review of Systems Const: Denies: fever(s) Card: Reports: chest pain Resp: Reports: dyspnea : Denies: flank pain Medications/Allergies Home Medications ?Medication ?Instructions ?Recorded ?Confirmed ?Last Taken ?Type nitroglycerin 0.4 mg sublingual 0.4 mg sublingual Q5M PRN chest 07/05/22 05/29/25 05/29/25 Rx tablet (Nitrostat) pain #30 tabs atorvastatin 80 mg tablet 80 mg PO DAILY 11/09/24 05/29/25 05/28/25 History clopidogrel 75 mg tablet 75 mg PO DAILY 11/09/24 05/29/25 05/28/25 History furosemide 20 mg tablet 20 mg PO BID 11/09/24 05/29/25 05/28/25 History levocetirizine 5 mg tablet 5 mg PO DAILY 11/09/24 05/29/25 05/28/25 History pantoprazole 40 mg tablet,delayed 40 mg PO DAILY 11/09/24 05/29/25 05/28/25 History release potassium chloride 8 mEq 8 meq PO DAILY 11/09/24 05/29/25 05/28/25 History tablet,extended release carvedilol 25 mg tablet 25 mg PO BID 90 days #180 tabs 02/04/25 05/29/25 05/28/25 Rx losartan 100 mg tablet 100 mg PO DAILY #90 tabs 02/04/25 05/29/25 05/28/25 Rx montelukast 10 mg tablet 10 mg PO DAILY 05/27/25 05/29/25 05/28/25 History sertraline 25 mg tablet (Zoloft) 25 mg PO DAILY #30 tabs 05/27/25 05/29/25 Unknown Rx acetaminophen 500 mg tablet 1,000 mg PO Q6H PRN Fever Or Pain 05/29/25 05/29/25 Unknown History (Tylenol Extra Strength) clonazepam 0.5 mg tablet 0.5 mg PO Q6H PRN Anxiety 05/29/25 05/29/25 Unknown History coenzyme Q10 100 mg capsule 100 mg PO DAILY 05/29/25 05/29/25 05/28/25 History (CoQ-10) ibuprofen 200 mg tablet (Advil) 400 mg PO Q6H PRN Fever Or Pain 05/29/25 05/29/25 Unknown History omega 6-uma-znr-fish oil 100 1 cap PO DAILY 05/29/25 05/29/25 05/28/25 History mg-160 mg-1,000 mg capsule (Fish Oil) omeprazole magnesium 20 mg 20 mg PO DAILY PRN Acid Reflux 05/29/25 05/29/25 Unknown History tablet,delayed release (Prilosec OTC) vitamin E 670 mg (1,000 unit) 670 mg PO DAILY 05/29/25 05/29/25 05/28/25 History capsule Allergies Allergy/AdvReac Type Severity Reaction Status Date / Time Alpha-Gal Allergy Severe shortness Verified 05/27/25 09:02 (Hclpymvsc-Awslh-9,3-Gala of breath, lips swell, rash carisoprodol Allergy Unknown Unknown Verified 05/27/25 08:56 levofloxacin (From Levaquin) Allergy Unknown ADR-Heartbu Verified 05/27/25 08:56 rn Penicillins Allergy Unknown ALGY-Swell Verified 05/27/25 08:56 Lip/Tongue/Throat streptomycin Allergy Unknown ALGY-Rash Verified 05/27/25 08:56 Sulfa (Sulfonamide Allergy Unknown ALGY-Rash Verified 05/27/25 08:56 Antibiotics) aspirin Allergy ADR-Gastrointestinal Verified 05/29/25 09:08 Upset fentanyl Allergy Unknown Verified 05/29/25 09:08 hydrocodone Allergy Unknown Verified 05/29/25 09:08 metformin Allergy diarrhea Verified 05/27/25 08:56 Tetracyclines Allergy nausea Verified 05/27/25 08:56 PFSH Acute PFSH: Medical History Left leg swelling Obesity, unspecified BMI 30.0-34.9 Type 2 diabetes mellitus without complications Anxiety feels controlled with meds Aortic heart murmur Arteriosclerotic heart disease (ASHD) Fatty infiltration of liver Adnexal cyst Encounter for counseling for care management of patient with chronic conditions and complex health needs using nurse-based model Enrolled in chronic care management Seasonal allergies Mixed hyperlipidemia Essential (primary) hypertension Gastro-esophageal reflux disease without esophagitis Surgical History History of meniscectomy of left knee Hx of hysterectomy still has ovaries Hx of appendectomy Hx of cholecystectomy Hx of angioplasty stent's x 3 H/O aortic valve replacement TAVR S/P knee surgery X2 Family History Family/Other No pertinent family history Lung disease Brother CAD (coronary artery disease) Mother Dementia Stroke Sister Diabetes Father Suicide Denies family history of Clotting disorder Chronic kidney disease (CKD) Anesthesia complication Bleeding disorder Cancer Social History Smoking and tobacco/nicotine status: never used tobacco/nicotine Second hand smoke exposure: No Alcohol intake: never Substance/Drug Use: never Adopted: No Caregiver/support person: Yes (family) Lives independently: Yes Household members: none Housing: House Marital status: / Number of children: 3 service: No Current occupational status: retired Current gender identity: Female Rosi/Faith: Orthodox Special rosi needs: No Agree to transfusion: Yes Vitals/I&O/Wt Last Vital Signs Temp 97.9 F 05/29/25 06:15 Pulse 61 05/29/25 10:09 Resp 16 05/29/25 06:15 BP 181/77 05/29/25 10:09 Pulse Ox 95 05/29/25 10:09 O2 Del Method Room Air 08/16/25 11:02 Weight last 48 hrs Weight 83.461 kg Physical Exam Const: COMMON NORMALS: no acute distress and patient oriented x3 HENMT: COMMON NORMALS: normocephalic HEAD & SCALP: normocephalic Neck/C-Spine: COMMON NORMALS: no JVD Resp: COMMON NORMALS: normal respiratory effort, No retractions, No use of accessory muscles and clear to auscultation bilaterally AUSCULTATION: clear to auscultation bilaterally Cardio: COMMON NORMALS: no JVD, regular rate, regular rhythm, S1 normal heart sound present and S2 normal heart sound present RATE: regular rate RHYTHM: regular rhythm HEART SOUNDS: S1 normal heart sound present and S2 normal heart sound present GI: COMMON NORMALS: Normal to inspection, nondistended, normoactive bowel sounds present, Soft to palpation and non-tender Extremity: COMMON NORMALS: no calf tenderness and no pedal edema Neuro: COMMON NORMALS: patient oriented x3 Psych: COMMON NORMALS: mental status grossly normal Data 05/29/25 06:21 05/29/25 07:17 A&P Assessment and plan 1. NSTEMI (non-ST elevated myocardial infarction): 2. Allergy to alpha-gal: 3. Essential (primary) hypertension: 4. H/O aortic valve replacement: 5. Arteriosclerotic heart disease (ASHD): 6. DVT (deep venous thrombosis): 7. Type 2 diabetes mellitus without complications: Plan: NSTEMI -History of CAD status post stenting x 3 -Atypical chest discomfort -No active pain - Serial EKGs, serial troponins, telemetry monitoring - Patient declines aspirin - Continue Plavix - Continue statin -Coreg - Has a alpha gal allergy, anaphylactic reaction, unfortunately heparin and Lovenox will not be a reasonable option, spoke to cardiology as there is plans on a possible PCI, followed up or do is associate with increased catheter thrombosis, we will instead use Angiomax - Angiomax - Cardiac echo - Venous ultrasound Choking sensation? - Aspiration precautions - Speech therapy eval -No dysphagia or dyne aphasia - Will monitor closely History of aortic valve replacement, bioprosthetic valve - On Plavix Type 2 diabetes mellitus, low-dose Lantus Full code Angiomax for DVT prophylaxis, SCD PDMP PDMP Reviewed: Not Reviewed Attestations Medical Necessity Statement*: Patient requires hospitalization, inpatient, greater than 2 midnights for NSTEMI Diagnoses NSTEMI (non-ST elevated myocardial infarction) I21.4 Allergy to alpha-gal Z91.018 Essential (primary) hypertension I10 H/O aortic valve replacement Z95.2 Arteriosclerotic heart disease (ASHD) I25.10 DVT (deep venous thrombosis) I82.409 Type 2 diabetes mellitus without complications E11.9
--- NOTE | 2025-05-29 12:18 | PC.PHAR ---
EARLIER TODAY, I RECEIVED AN INQUIRY FROM DR. PEACE IN ER. HE QUESTIONED ALPHA GAL AND THE USE OF HEPARIN. I LOOKED THIS UP AND FOUND THAT BOTH HEPARIN AND LOVENOX ARE ANIMAL DERIVED, PORCINE SPECIFICALLY. I SUGGESTED THAT IF LMWH OR HEPARIN ARE WARRANTED THAT HE PRETREAT THE PATIENT WITH BENADRYL AND STEROID. I ALSO OFFERED A FULLY SYNTHETIC OPTION ARIXTRA. HE PHONED JUNIOR SO THAT HE MAY MAKE A DECISION REGARDING PATIENT. I PLACED THE LOVENOX IN PENDING MODE UNTIL I HEARD FROM JUNIOR. I ALSO SENT AN EMAIL TO DR. PEACE WITH MY RECOMMENDATIONS. JUST NOW, I RECEVED A PHONE CALL FROM JUNIOR. HE ASKED THAT I ADJUST THE DOSAGE OF THE BIVALIRUDIN DOSE HE JUST PLACED FOR VERIFICATION. HE WANTS 0.1 MG/KG BOLUS THEN 0.25 MG/KG/HR THEREAFTER. I HAVE ADJUSTED THE DOSE AND I WILL GO OVER THE MATH WITH PATIENTS NURSE.
--- NOTE | 2025-05-29 12:48 | ECG_ITS ---
[facility] Date: 2025-05[facility]29 Pat Name: Archana Franklin Department: Room: 111 Gender: Female Cotton Baler: : 1945 Requested By: Devyn Barajas Order Number: [id number] Koko MD: Isrrael Mayers M.D. Measurements Intervals [place] Rate: 63 P: 24 [place]: 222 QRS: -10 QRSD: 140 T: 140 QT: 395 QTc: 406 Interpretive Statements SINUS RHYTHM WITH FIRST DEGREE AV BLOCK LEFT BUNDLE BRANCH BLOCK [120+ ms QRS DURATION, 80+ ms Q/S IN V1/V2, 85+ ms R IN I/aVL/V5/V6] Compared to ECG 05/29/2025 09:34:09 No significant changes Electronically Signed On 05-30-2025 17:48:44 CDT by Isrrael Mayers M.D. [email or web address] [id number]
[2025-05-29 12:59] LABS: Troponin 5 6HR 19.05 ng/L (0-10); Troponin 5 6HR Delta 6.05 ng/L (0-12)
[2025-05-29 13:06] LABS: Add Urine Microscopic? NO
--- NOTE | 2025-05-29 13:13 | PC.CHAP ---
Pastoral Care Encounter/Spiritual Assessment Type of Contact [] Declined snack stewardess visit [] Patient/Family/Request visit [] Outpatient visit [] Follow-up visit [] Physician referral [] Code/Alert [x] Routine visit [] Staff referral [] Actively dying [] Patient sleeping [] Family support [] [] Out of room [] Palliative care [] [] Receiving care in room [] Pre-surgical visit [] Trauma [] Long length of stay [] ICU visit [] Other: Relational/Emotional Strength [x] Patient feels connected with others/family/visitors/staff [] Distress [] Loneliness/isolation [] Abandonment Spirituality of Patient [x] Person of Rosi [] Attends Hinduism of their Rosi [x] Believes in Prayer [] Reads Bible or Voodoo materials [] There are Spiritual issues to be addressed Catering Truck Driver Interventions [x] Prayer [x] Active listening [] Non-anxious presence [] Spiritual/emotional support [] Crisis/trauma care [] Spiritual counseling [] Bereavement support [] Provided bereavement packet [] Provided Bible/devotional materials [] Provided toy/stuffed animal, coloring book to patient or family member [] Provided Communion [] Anointing/[place] [] Salvation [] Completed spiritual assessment [] Other: Impact on Illness or Injury [] Angry [] Fearful [] Anxious [] Often cries [] Exhaustion [] Unable to work [] Unable to attend pentecostal [] Unable to walk/stand [] Unable to read [] Unable to drive [] Unable to eat/drink [] Unable to sleep [] Unable to be with family [] Patient intubated [] Other: Summary Time spent with patient
[2025-05-29] MEDS: bivalirudin 250 MG in sodium chloride 0.9% 500 ML 41.73 MG IV (13:17)
[2025-05-29 13:29] LABS: Glucose Urine UA Negative (Normal); Nitrate Urine Negative (Negative); Specific Gravity, Urine 1.008 (1.005-1.030)
[2025-05-29 13:31] LABS: Charge for UA Resulting for Rev
--- NOTE | 2025-05-29 13:35 | PM.CONSULT ---
Providers/Reason For Consult Consulting Physician/Specialty*: Isrrael Mayers MD/Cardiology Reason for Consult*: NSTEMI Requesting Physician: Surendra Ambriz MD Attending Physician: Surendra Ambriz MD Primary Care Provider: Raymond Noyola MD History of Present Illness History of Present Illness Archana Franklin is a 80 year old female with a history of HTN, HLD, CAD s/p stenting approximately 10 years ago, chroic LBBB, TAVR approximately 6 years ago and Alph Gal allergy who presents with chest pain as well as pain in the left shoulder and arm. She also mentions she has been waking up with heart racing that can last for 20 minutes. She does snore but no one has seen if she stops breathing while sleeping. She received nitro which helped her chest pain. Medications/Allergies Home Medications ?Medication ?Instructions ?Recorded ?Confirmed ?Last Taken ?Type nitroglycerin 0.4 mg sublingual 0.4 mg sublingual Q5M PRN chest 07/05/22 05/29/25 05/29/25 Rx tablet (Nitrostat) pain #30 tabs atorvastatin 80 mg tablet 80 mg PO DAILY 11/09/24 05/29/25 05/28/25 History clopidogrel 75 mg tablet 75 mg PO DAILY 11/09/24 05/29/25 05/28/25 History furosemide 20 mg tablet 20 mg PO BID 11/09/24 05/29/25 05/28/25 History levocetirizine 5 mg tablet 5 mg PO DAILY 11/09/24 05/29/25 05/28/25 History pantoprazole 40 mg tablet,delayed 40 mg PO DAILY 11/09/24 05/29/25 05/28/25 History release potassium chloride 8 mEq 8 meq PO DAILY 11/09/24 05/29/25 05/28/25 History tablet,extended release carvedilol 25 mg tablet 25 mg PO BID 90 days #180 tabs 02/04/25 05/29/25 05/28/25 Rx losartan 100 mg tablet 100 mg PO DAILY #90 tabs 02/04/25 05/29/25 05/28/25 Rx montelukast 10 mg tablet 10 mg PO DAILY 05/27/25 05/29/25 05/28/25 History sertraline 25 mg tablet (Zoloft) 25 mg PO DAILY #30 tabs 05/27/25 05/29/25 Unknown Rx acetaminophen 500 mg tablet 1,000 mg PO Q6H PRN Fever Or Pain 05/29/25 05/29/25 Unknown History (Tylenol Extra Strength) clonazepam 0.5 mg tablet 0.5 mg PO Q6H PRN Anxiety 05/29/25 05/29/25 Unknown History coenzyme Q10 100 mg capsule 100 mg PO DAILY 05/29/25 05/29/25 05/28/25 History (CoQ-10) ibuprofen 200 mg tablet (Advil) 400 mg PO Q6H PRN Fever Or Pain 05/29/25 05/29/25 Unknown History omega 0-rxe-fpt-fish oil 100 1 cap PO DAILY 05/29/25 05/29/25 05/28/25 History mg-160 mg-1,000 mg capsule (Fish Oil) omeprazole magnesium 20 mg 20 mg PO DAILY PRN Acid Reflux 05/29/25 05/29/25 Unknown History tablet,delayed release (Prilosec OTC) vitamin E 670 mg (1,000 unit) 670 mg PO DAILY 05/29/25 05/29/25 05/28/25 History capsule Allergies Allergy/AdvReac Type Severity Reaction Status Date / Time Alpha-Gal Allergy Severe shortness Verified 05/27/25 09:02 ([id number]-Usjal-5,3-Gala of breath, lips swell, rash carisoprodol Allergy Unknown Unknown Verified 05/27/25 08:56 levofloxacin (From Levaquin) Allergy Unknown ADR-Heartbu Verified 05/27/25 08:56 rn Penicillins Allergy Unknown ALGY-Swell Verified 05/27/25 08:56 Lip/Tongue/Throat streptomycin Allergy Unknown ALGY-Rash Verified 05/27/25 08:56 Sulfa (Sulfonamide Allergy Unknown ALGY-Rash Verified 05/27/25 08:56 Antibiotics) aspirin Allergy ADR-Gastrointestinal Verified 05/29/25 09:08 Upset fentanyl Allergy Unknown Verified 05/29/25 09:08 hydrocodone Allergy Unknown Verified 05/29/25 09:08 metformin Allergy diarrhea Verified 05/27/25 08:56 Tetracyclines Allergy nausea Verified 05/27/25 08:56 Current Medications Generic Name Dose Route Start Last Admin Trade Name Freq PRN Reason Stop Dose Admin Clonazepam 0.5 mg 05/29/25 09:58 05/29/25 11:35 Clonazepam 0.5 Mg Tablet PO 0.5 mg Q6H PRN Administration ANXIETY Clopidogrel Bisulfate 75 mg 05/29/25 09:58 05/29/25 10:40 Clopidogrel 75 Mg Tablet PO 75 mg DAILY MERNA Administration Bivalirudin 250 mg/ Sodium 500 mls @ 41.731 mls/hr 05/29/25 11:45 05/29/25 13:17 Chloride IV 0.25 mg/kg/hr .[id number] MERNA 41.73 mls/hr Protocol Administration 0.25 MG/KG/HR Pantoprazole Sodium 40 mg 05/29/25 10:00 05/29/25 10:39 Pantoprazole 40 Mg Sdv IVP 40 mg Q24H MERNA Administration PFSH Acute PFSH: Medical History (Updated 05/29/25 @ 13:55 by Isrrael Mayers MD) Left leg swelling Obesity, unspecified BMI 30.0-34.9 Type 2 diabetes mellitus without complications Anxiety feels controlled with meds Aortic heart murmur Arteriosclerotic heart disease (ASHD) Fatty infiltration of liver Adnexal cyst Encounter for counseling for care management of patient with chronic conditions and complex health needs using nurse-based model Enrolled in chronic care management Seasonal allergies Mixed hyperlipidemia Essential (primary) hypertension Gastro-esophageal reflux disease without esophagitis Surgical History (Updated 05/29/25 @ 13:54 by Isrrael Mayers MD) History of meniscectomy of left knee Hx of hysterectomy still has ovaries Hx of appendectomy Hx of cholecystectomy Hx of angioplasty stent's x 3 H/O aortic valve replacement TAVR S/P knee surgery X2 Family History Family/Other No pertinent family history Lung disease Brother CAD (coronary artery disease) Mother Dementia Stroke Sister Diabetes Father Suicide Denies family history of Clotting disorder Chronic kidney disease (CKD) Anesthesia complication Bleeding disorder Cancer Social History Smoking and tobacco/nicotine status: never used tobacco/nicotine Second hand smoke exposure: No Alcohol intake: never Substance/Drug Use: never Adopted: No Caregiver/support person: Yes (family) Lives independently: Yes Household members: none Housing: House Marital status: / Number of children: 3 service: No Current occupational status: retired Current gender identity: Female Rosi/Mormonism: Hindu Special rosi needs: No Agree to transfusion: Yes Vitals/I&O/Wt Last Vital Signs Temp 97.9 F 05/29/25 12:00 Pulse 63 05/29/25 12:00 Resp 19 H 05/29/25 12:00 BP 194/79 05/29/25 12:00 Pulse Ox 93 05/29/25 12:00 O2 Del Method Room Air 05/29/25 11:02 05/28/25 05/29/25 05/29/25 22:59 06:59 14:59 Output Total 300 / 300 Balance -300 / -300 Weight last 48 hrs Weight 184 lb Physical Exam Narrative: General: In no acute distress Neck: No jugular venous distention or carotid bruits Heart: Loud s2 and s2, with a regular rate and rhythm, 1/6 systolic murmur Lungs: Normal respiratory effort with no use of intercostal muscles, clear lungs sounds to auscultation Extremities: No lower extremity edema Neuro: Alert and oriented x 3 Data 05/29/25 06:21 05/29/25 07:17 Other data: Echo 01/16/2024: Normal left ventricular size and systolic function, EF 66%.mild left ventricular hypertrophy. No regional wall motion abnormalities. Grade I/IV diastolic dysfunction (abnormal relaxation filling pattern), normal to mildly elevated filling pressures. The bioprosthetic valve in the aortic position appears to be well-seated. Peak velocity across the valve was 2.05 m/s. Valve area was calculated to be 1.94 cm squared. Trace tricuspid valve regurgitation. Estimated pulmonary artery peak systolic pressure 22 mmHg. There is no pericardial effusion. There are no intracardiac masses. Compared to the study from 02/07/2022, there may not be a significant change Nuclear stress test 02/19/25: 1. Myocardial perfusion imaging revealing uniform myocardial tracer uptake with no significant perfusion abnormalities 2. Normal LV ejection fraction of 85%. 3. LV wall motion analysis revealing no gross wall motion abnormalities. 4. Normal LV volume Low probability for coronary ischemia, based on the above findings No similar previous studies are available for comparison A&P Assessment and plan 1. NSTEMI (non-ST elevated myocardial infarction): CP controlled with nitro currently 2. Arteriosclerotic heart disease (ASHD): h/o coronary artery stenting about 10 years ago GI intolerance in the past to high dose ASA 325mg 3. Essential (primary) hypertension: BP has been uncontrolled 4. Mixed hyperlipidemia: Tolerating high dose statin 5. S/P TAVR (transcatheter aortic valve replacement): Normal function on echo 01/2024 6. Palpitations: Concerning for arrythmia, possibly triggered by ischemia or undiagnosed sleep apnea 7. Allergy to alpha-gal: Hold on giving IV heparin Plan: Nitro paste 1 [id number] Tele monitoring Echo clopidogrel 75mg daily carvedilol 25mg bid losartan 100mg daily furosemide 20mg bid Continue home PPI and potassium LHC tomorrow morning Keep NPO after midnight Will need outpatient sleep study Since patient has had GI upset with 325mg ASA in the past we will need to discuss the DAPT regimen if needs new MILY tomorrow. Discussed with Dr. Obando who will consider low dose ASA with clopidogrel or Brilinta versus Brilinta monotherapy. PDMP PDMP Reviewed: Not Reviewed Coding Level of Care Code Acute Code for [facility] Fwd Diagnoses NSTEMI (non-ST elevated myocardial infarction) I21.4 Arteriosclerotic heart disease (ASHD) I25.10 Essential (primary) hypertension I10 Mixed hyperlipidemia E78.2 S/P TAVR (transcatheter aortic valve replacement) Z95.2 Palpitations R00.2 Allergy to alpha-gal Z91.018
[2025-05-29] MEDS: nitroglycerin 1 gm/inch oint Pkt 1 INCH TOPICAL (20:23)
[2025-05-30] VITALS (50 sets, daily range): BP systolic 133–178; BP diastolic 49–72; PULSE 56–73; RESP 15–22; TEMP 36.1–37.1; O2SAT 91–96
[2025-05-30] MEDS: bivalirudin 250 MG in sodium chloride 0.9% 500 ML 41.73 MG IV (01:20)
[2025-05-30 03:35] LABS: Hematocrit 39.9 % (36-47); Hemoglobin 12.80 g/dL (11.27-16.99); Mean Corpuscular HGB Conc 32.1 g/dL (30-55); Mean Corpuscular Hemoglobin 33.4 pg (27-33); Mean Corpuscular Volume 104.2 fl (85-98); Nucleated Red Blood Cells % 0 %; Platelet Count 128 10^3/cmm (157-399); Red Blood Count 3.83 10^6/uL (3.85-5.65); White Blood Count 4.73 10^3/uL (3.29-11.43)
[2025-05-30 03:57] LABS: Alanine Aminotransferase 23 U/L (0-33); Albumin Level 3.5 g/dL (3.5-5.2); Alkaline Phosphatase 53 U/L (35-105); Aspartate Amino Transferase 29 U/L (0-32); Blood Urea Nitrogen 10 mg/dL (8-23); Calcium 8.7 mg/dL (8.5-10.5); Carbon Dioxide 24 mmol/L (22-29); Chloride 108 mmol/L (98-107); Creatinine Clr Calc Pharmacy 76.3610; Globulin 2.3 g/dL (1.3-4.6); Glucose 138 mg/dL (65-115); Magnesium 2.0 mg/dL (1.7-2.3); Osmolality Calculated 293 mOsm/kg (285-295); Sodium 141 mmol/L (136-145); Total Protein 5.8 g/dL (6.6-8.7)
[2025-05-30 04:01] LABS: Anion Gap 12.7 (5-19); Potassium 3.7 mmol/L (3.5-5.1)
[2025-05-30] MEDS: morphine 4 mg/mL SDV 1 mL 2 MG IVP (04:09)
[2025-05-30 04:37] LABS: NT Pro B Type Natriuretic Pept 561 pg/mL (0-450); Procalcitonin 0.04 ng/mL (0-0.5)
[2025-05-30 04:43] LABS: Slide Review Slide Review Perform
[2025-05-30] MEDS: ondansetron 2 mg/ML SDV 2 mL 4 MG IVP ×2 (05:47→10:05)
[2025-05-30] MEDS: pantoprazole 40 mg SDV IVP (09:09)
--- NOTE | 2025-05-30 10:59 | W.PM.OPSUD ---
Surgery/Procedure H&P Update DATE OF PROCEDURE: May 30, 2025 DATE H&P PERFORMED: 05/29/25 H&P UPDATE INFORMATION: I have reviewed H&P completed within last 30 days, I have examined patient prior to procedure and No changes to prior documentation PREOP DIAGNOSIS: [id number] MO PRIMARY INDICATION FOR PROCEDURE: [id number] MO PLANNED PROCEDURE: Operation Date: 05/30/25 10:30 Proposed Procedures p Cardiac Catheterization(Left) - Ricky Obando MD PATIENT REASSESSED PRIOR TO SEDATION, WITH NO CHANGE NOTED: Yes PHYSICAL EXAM: alert, oriented x 3, clear to auscultation bilaterally, regular rate & rhythm and operative site marked AIRWAY EVAL/ANESTHESIA PLAN: ASA II, Risks, benefits & alternatives of sedation and/or procedure discussed and Patient agrees to continue as planned ADDITIONAL INFORMATION: Patient has been explained all risk-benefit and alternative for the procedure. Patient understand 2% risk of stroke major bleed. Patient understand 5% risk of minor bleeding bruising infection hematoma contrast-induced nephropathy urgent emergent vascular bypass surgery. Patient would like to proceed with it.
--- NOTE | 2025-05-30 11:38 | P.PN_ITS ---
Subjective 2 Subjective: Patient was seen this morning, she is ambulating to the bathroom, no chest pain, no palpitations, no lightheadedness, no dizziness Vitals/I&O/Wt Last Vital Signs Temp 97.0 F L 05/30/25 08:00 Pulse 61 05/30/25 08:00 Resp 20 H 05/30/25 08:00 BP 165/65 05/30/25 08:00 Pulse Ox 93 05/30/25 07:57 O2 Del Method Room Air 05/30/25 07:57 05/29/25 05/30/25 05/30/25 22:59 06:59 14:59 Intake Total 960 / 960 500 / 1460 Output Total 600 / 900 Balance 960 / 660 -100 / 560 Weight last 48 hrs Weight 83.28 kg Weight 83.461 kg Weight 83.461 kg Physical Exam 2 Const: COMMON NORMALS: no acute distress and patient oriented x3 Resp: COMMON NORMALS: normal respiratory effort, No retractions, No use of accessory muscles and clear to auscultation bilaterally AUSCULTATION: clear to auscultation bilaterally Cardio: COMMON NORMALS: regular rate, regular rhythm, S1 normal heart sound present and S2 normal heart sound present RATE: regular rate RHYTHM: r egular rhythm HEART SOUNDS: S1 normal heart sound present and S2 normal heart sound present GI: COMMON NORMALS: Normal to inspection, nondistended, normoactive bowel sounds present Extremity: COMMON NORMALS: no pedal edema Neuro: COMMON NORMALS: patient oriented x3 Psych: COMMON NORMALS: mental status grossly normal Data 05/30/25 02:40 05/30/25 02:40 A&P Assessment and plan 1. NSTEMI (non-ST elevated myocardial infarction): 2. Arteriosclerotic heart disease (ASHD): 3. Essential (primary) hypertension: 4. Mixed hyperlipidemia: 5. S/P TAVR (transcatheter aortic valve replacement): 6. Palpitations: 7. Allergy to alpha-gal: Hold on giving IV heparin 8. Allergy to alpha-gal: 9. H/O aortic valve replacement: 10. DVT (deep venous thrombosis): 11. Type 2 diabetes mellitus without complications: Plan: NSTEMI -History of CAD status post stenting x 3 -Atypical chest discomfort -No active pain - Serial EKGs, serial troponins, telemetry monitoring - Patient declines aspirin - Continue Plavix - Continue statin -Coreg - Has a alpha gal allergy, anaphylactic reaction, unfortunately heparin and Lovenox will not be a reasonable option, spoke to cardiology as there is plans on a possible PCI, followed up or do is associate with increased catheter thrombosis, we will instead use Angiomax - Angiomax - Cardiac echo CONCLUSIONS 1. Normal left ventricular and right ventricular size and systolic function. EF 66% 2. Normal bioprosthetic aortic valve structure and function 3. Grade 2 left ventricular diastolic dysfunction 4. Mild to moderate mitral valve regurgitation 5. Mild pulmonary hypertension, RVSP 43 mmHg - Venous [place] US/[place] [id number] IMPRESSION: NEGATIVE for acute deep venous thrombosis in visualized lower extremity veins. Choking sensation? - Aspiration precautions - Speech therapy eval -No dysphagia or dyne aphasia - Will monitor closely History of aortic valve replacement, bioprosthetic valve - On Plavix Type 2 diabetes mellitus, low-dose Lantus Full code Angiomax for DVT prophylaxis, SCD PDMP PDMP Reviewed: Not Reviewed Attestations 2 Medical Necessity Statement*: Patient requires hospitalization for NSTEMI, Diagnoses NSTEMI (non-ST elevated myocardial infarction) I21.4 Arteriosclerotic heart disease (ASHD) I25.10 Essential (primary) hypertension I10 Mixed hyperlipidemia E78.2 S/P TAVR (transcatheter aortic valve replacement) Z95.2 Palpitations R00.2 Allergy to alpha-gal Z91.018 H/O aortic valve replacement Z95.2 DVT (deep venous thrombosis) I82.409 Type 2 diabetes mellitus without complications E11.9
--- NOTE | 2025-05-30 12:36 | P.PCN_ITS ---
Procedure Note: Pre-procedure diagnosis: Acute coronary syndrome Post- procedure diagnosis: same Procedure: Left heart cath was performed Due to tortuosity in the subclavian vessel and because of the fact that patient has aortic valve replacement with TAVR were not able to engage the coronaries from radial approach therefore right common femoral approach was adapted Left main: 30% proximal stenosis LAD: Luminal irregularities with mild in-stent restenosis in the midsegment. Small caliber less than 1.5 mm small diagonal has ostial 90% stenosis not amenable to intervention Left circumflex: Luminal irregularity without significant stenosis RCA: Luminal irregularity without significant stenosis Left ventricle end-diastolic pressure was moderately elevated 23 mmHg Plan: Maximal medical management Continue dual antiplatelet therapy Meticulous blood pressure control Check PTT now if less than 45 remove the sheath Bedrest for 5 hours Full note to be dictated Coding Level of Care Code Acute Code for [facility]
[2025-05-30 13:57] LABS: Partial Thromboplastin Time 43.2 SECONDS (23.9-36.7)
[2025-05-31 04:00] VITALS: BP 158/73; PULSE 73; RESP 16; TEMP 36.6; O2SAT 94
[2025-05-31 04:33] LABS: Hematocrit 37.8 % (36-47); Hemoglobin 12.40 g/dL (11.27-16.99); Mean Corpuscular HGB Conc 32.8 g/dL (30-55); Mean Corpuscular Hemoglobin 33.2 pg (27-33); Mean Corpuscular Volume 101.1 fl (85-98); Nucleated Red Blood Cells % 0 %; Platelet Count 120 10^3/cmm (157-399); Red Blood Count 3.74 10^6/uL (3.85-5.65); White Blood Count 6.98 10^3/uL (3.29-11.43)
[2025-05-31 05:01] LABS: Alanine Aminotransferase 22 U/L (0-33); Albumin Level 3.5 g/dL (3.5-5.2); Alkaline Phosphatase 51 U/L (35-105); Anion Gap 9.7 (5-19); Aspartate Amino Transferase 28 U/L (0-32); Blood Urea Nitrogen 12 mg/dL (8-23); Calcium 8.8 mg/dL (8.5-10.5); Carbon Dioxide 28 mmol/L (22-29); Chloride 103 mmol/L (98-107); Creatinine Clr Calc Pharmacy 76.1954; Globulin 2.0 g/dL (1.3-4.6); Glucose 104 mg/dL (65-115); Magnesium 1.9 mg/dL (1.7-2.3); Osmolality Calculated 284 mOsm/kg (285-295); Potassium 3.7 mmol/L (3.5-5.1); Sodium 137 mmol/L (136-145); Total Protein 5.5 g/dL (6.6-8.7)
[2025-05-31 05:03] LABS: NT Pro B Type Natriuretic Pept 701 pg/mL (0-450); Procalcitonin 0.04 ng/mL (0-0.5)
[2025-05-31 05:27] LABS: Slide Review Slide Review Perform
[2025-05-31 05:28] LABS: Add RBC Morph Yes; Microcytosis 1+; RBC Morph Comp No
[2025-05-31 07:20] VITALS: BP 175/74; PULSE 65; RESP 13; TEMP 36.4; O2SAT 94
--- NOTE | 2025-05-31 08:48 | PM.DCS ---
Discharge Providers Date of Admission: 05/29/25 09:46 Date of Discharge: May 31, 2025 Attending Provider at Admission: Surendra Ambriz MD Attending Provider at Discharge: Keiko Melendrez MD Consults: Cardiology, Dr. Mayers Primary Care Provider: Raymond Noyola MD Diagnoses at Discharge Discharge Diagnosis 1. NSTEMI (non-ST elevated myocardial infarction): 2. Arteriosclerotic heart disease (ASHD): 3. Essential (primary) hypertension: 4. Mixed hyperlipidemia: 5. S/P TAVR (transcatheter aortic valve replacement): 6. Palpitations: 7. Allergy to alpha-gal: 8. H/O aortic valve replacement: 9. DVT (deep venous thrombosis): 10. Type 2 diabetes mellitus without complication, without long-term current use of insulin: Reason for Visit Reason for Visit: choking episode Hospital Course Hospital Course 80 year old female with a history of HTN, HLD, CAD s/p stenting approximately 10 years ago, chronic LBBB, TAVR approximately 6 years ago and Alph Gal allergy who presented with chest pain as well as pain in the left shoulder and arm. She received nitro which helped her chest pain. On 05/30 she underwent Left heart cath which showed the following: Left main: 30% proximal stenosis LAD: Luminal irregularities with mild in-stent restenosis in the midsegment. Small caliber less than 1.5 mm small diagonal has ostial 90% stenosis not amenable to intervention Left circumflex: Luminal irregularity without significant stenosis RCA: Luminal irregularity without significant stenosis Echo showed Left ventricle end-dNormal left ventricular and right ventricular size and systolic function. EF 66%. Normal bioprosthetic aortic valve structure and function. Grade 2 left ventricular diastolic dysfunction. Mild pulmonary hypertension, RVSP 43 mmHg. Plan: Maximal medical management Continue dual antiplatelet therapy Meticulous blood pressure control She is being discharged in stable condition. Physical Exam Narrative: General: No acute distress, AO x3 HEENT: PERRLA, pupils bilaterally equal and reactive, pallors not present Chest: Normal vesicular breath sounds, no added sounds, equal good air entry bilaterally CVS: S1-S2 regular, no murmurs, no tachycardia, no gallops, no rubs Abdomen: Soft, nontender, no organomegaly, bowel sounds present Neuro: No focal deficits, no facial deformity, AO x3, power 5/5 in all limbs Discharge Data Studies Completed and Pending Completed Studies During Hospitalization Category Date Time Status XR chest 1V portable [id number] Stat Exams 05/29/25 06:31 [place] [id number] Routine Ultrasound 05/29/25 11:37 Completed CV. echo complete* [id number] Routine Ultrasound 05/29/25 11:37 Completed Pending at discharge Category Date Time Status [employer]ESSION[employer]OR request for service Routine Exams 05/30/25 08:24 Taken C Reactive Protein AM LABS Lab 06/01/25 04:00 Ordered Complete Blood Count w/Auto AM LABS Lab 06/01/25 04:00 Ordered Comprehensive Metabolic Panel AM LABS Lab 06/01/25 04:00 Ordered Magnesium AM LABS Lab 06/01/25 04:00 Ordered NT Pro B Type Natriuretic Pept QAM Lab 06/01/25 06:00 Ordered Phosphorus AM LABS Lab 06/01/25 04:00 Ordered Procalcitonin AM LABS Lab 06/01/25 04:00 Ordered Radiology Impressions Chest X-Ray 05/29/25 06:31 IMPRESSION: No acute cardiopulmonary process. Venous Duplex 05/29/25 11:37 IMPRESSION: NEGATIVE for acute deep venous thrombosis in visualized lower extremity veins. Laboratory Results WBC 6.98 10^3/uL (3.29-11.43) 05/31/25 02:16 RBC 3.74 10^6/uL (3.85-5.65) L 05/31/25 02:16 Hgb 12.40 g/dL (11.27-16.99) 05/31/25 02:16 Hct 37.8 % (36-47) 05/31/25 02:16 MCV 101.1 fl (85-98) H 05/31/25 02:16 MCH 33.2 pg (27-33) H 05/31/25 02:16 MCHC 32.8 g/dL (30-55) 05/31/25 02:16 RDW 12.6 % (12.1-15.1) 05/31/25 02:16 Plt Count 120 10^3/cmm (157-399) L 05/31/25 02:16 MPV 13.9 fL (7.4-10.4) H 05/31/25 02:16 Neut % (Auto) 61.8 % 05/31/25 02:16 Lymph % (Auto) 21.8 % 05/31/25 02:16 [place] % (Auto) 14.0 % 05/31/25 02:16 Eos % (Auto) 1.3 % 05/31/25 02:16 Baso % (Auto) 0.7 % 05/31/25 02:16 Neut # (Auto) 4.31 10^3/uL (1.8-7.7) 05/31/25 02:16 Lymph # (Auto) 1.5 10^3/uL (0.8-4.8) 05/31/25 02:16 [place] # (Auto) 1.0 10^3/uL (0.2-0.9) H 05/31/25 02:16 Eos # (Auto) 0.1 10^3/uL (0.0-0.8) 05/31/25 02:16 Baso # (Auto) 0.1 10^3/uL (0.0-0.1) 05/31/25 02:16 Nucleated RBC % (auto) 0 % 05/31/25 02:16 Nucleated RBCs # 0.0 /100WBC 05/31/25 02:16 Microcytosis 1+ H 05/31/25 02:16 APTT 43.2 SECONDS (23.9-36.7) H 05/30/25 13:30 Sodium 137 mmol/L (136-145) 05/31/25 02:16 Potassium 3.7 mmol/L (3.5-5.1) 05/31/25 02:16 Chloride 103 mmol/L (98-107) 05/31/25 02:16 Carbon Dioxide 28 mmol/L (22-29) 05/31/25 02:16 Anion Gap 9.7 (5-19) 05/31/25 02:16 BUN 12 mg/dL (8-23) 05/31/25 02:16 Creatinine 0.8 mg/dL (0.5-0.9) 05/31/25 02:16 GFR Calculation Not Reportable 05/31/25 02:16 Glucose 104 mg/dL (65-115) 05/31/25 02:16 POC Glucose 128 mg/dL (70-110) H 05/31/25 06:25 Estimat Average Glucose 166 05/29/25 06:21 Hemoglobin A1c 7.4 % (4.0-6.0) H 05/29/25 06:21 Calculated Osmolality 284 mOsm/kg (285-295) L 05/31/25 02:16 Calcium 8.8 mg/dL (8.5-10.5) 05/31/25 02:16 Phosphorus 3.3 mg/dL (2.5-4.5) 05/31/25 02:16 Magnesium 1.9 mg/dL (1.7-2.3) 05/31/25 02:16 Total Bilirubin 0.5 mg/dL (0.15-1.2) 05/31/25 02:16 AST 28 U/L (0-32) 05/31/25 02:16 ALT 22 U/L (0-33) 05/31/25 02:16 Alkaline Phosphatase 51 U/L (35-105) 05/31/25 02:16 Troponin T Baseline 13 ng/L (0-10) H 05/29/25 06:21 Troponin T 120 Minute 16.59 ng/L (0-10) H 05/29/25 08:25 Delta Troponin T 3.59 ABS# (0-10) 05/29/25 08:25 Troponin T Hi Sens 6Hr 19.05 ng/L (0-10) H 05/29/25 12:34 Troponin T Hi Sens 6Hr Delta 6.05 ng/L (0-12) 05/29/25 12:34 C-Reactive Protein 3.0 mg/L (0.0-4.9) 05/31/25 02:16 NT-Pro-B Natriuret Pep 701 pg/mL (0-450) H 05/31/25 02:16 Total Protein 5.5 g/dL (6.6-8.7) L 05/31/25 02:16 Albumin 3.5 g/dL (3.5-5.2) 05/31/25 02:16 Globulin 2.0 g/dL (1.3-4.6) 05/31/25 02:16 Triglycerides 146 mg/dL (0-150) 05/29/25 07:17 Cholesterol 141 mg/dL (0-200) 05/29/25 07:17 LDL Cholesterol, Calc 72 mg/dL (50-129) 05/29/25 07:17 HDL Cholesterol 40 mg/dL (60-100) L 05/29/25 07:17 LDL/HDL Ratio 1.80 RATIO (0.00-3.22) 05/29/25 07:17 Cholesterol/HDL Ratio 3.53 mg/dL (0.0-4.40) 05/29/25 07:17 Procalcitonin 0.04 ng/mL (0-0.5) 05/31/25 02:16 TSH 2.54 uIU/mL (0.27-4.20) 05/29/25 07:17 Urine Color Yellow (Yellow) 05/29/25 11:56 Urine Appearance Clear (CLEAR) 05/29/25 11:56 Urine pH 8.0 (5-7) A 05/29/25 11:56 Ur Specific [place] 1.008 (1.005-1.030) 05/29/25 11:56 Urine Protein Negative (Negative) 05/29/25 11:56 Urine Glucose (UA) Negative (Normal) 05/29/25 11:56 Urine Ketones Negative (Negative) 05/29/25 11:56 Urine Blood Negative (Negative) 05/29/25 11:56 Urine Nitrate Negative (Negative) 05/29/25 11:56 Urine Bilirubin Negative (Negative) 05/29/25 11:56 Urine Urobilinogen 0.2 mg/dL (Negative) 05/29/25 11:56 Ur Leukocyte Esterase Negative (Negative) 05/29/25 11:56 Amorphous Sediment Not Reportable 05/29/25 11:56 Vitals Last Vital Signs Temp 97.6 F 05/31/25 07:20 Pulse 65 05/31/25 07:20 Resp 13 05/31/25 07:20 BP 175/74 05/31/25 07:20 Pulse Ox 94 05/31/25 07:20 O2 Del Method Room Air 05/31/25 04:00 Discharge Plan Discharge Patient Disposition: Home Condition: Stable Prescriptions: New aspirin 81 mg Tablet,Delayed Release (Dr/Ec) 81 mg PO DAILY 30 Days Qty: 30 0RF isosorbide mononitrate 60 mg Tablet Extended Release 24 Hr 60 mg PO DAILY 30 Days Qty: 30 0RF amlodipine 5 mg Tablet 2.5 mg PO DAILY 30 Days Qty: 30 0RF Continued carvedilol 25 mg tablet 25 mg PO BID 90 Days Qty: 180 3RF Rx Instructions: must administer with a meal/food losartan 100 mg tablet 100 mg PO DAILY Qty: 90 3RF Rx Instructions: TAKE ONE TABLET BY MOUTH DAILY montelukast 10 mg tablet 10 mg PO DAILY sertraline [Zoloft] 25 mg tablet 25 mg PO DAILY Qty: 30 0RF nitroglycerin [Nitrostat] 0.4 mg tablet, sublingual 0.4 mg SUBLINGUAL Q5M PRN (Reason: chest pain) Qty: 30 0RF atorvastatin 80 mg tablet 80 mg PO DAILY Rx Instructions: TAKE ONE TABLET BY MOUTH DAILY clopidogrel 75 mg tablet 75 mg PO DAILY Rx Instructions: TAKE ONE TABLET BY MOUTH EVERY DAY potassium chloride 8 mEq tablet extended release 8 meq PO DAILY Rx Instructions: TAKE ONE TABLET BY MOUTH DAILY As Needed, with furosemide furosemide 20 mg tablet 20 mg PO BID Rx Instructions: TAKE ONE TABLET BY MOUTH TWICE DAILY NEEDED FOR EDEMA levocetirizine 5 mg tablet 5 mg PO DAILY Rx Instructions: TAKE ONE TABLET BY MOUTH DAILY pantoprazole 40 mg tablet,delayed release (DR/EC) 40 mg PO DAILY clonazepam 0.5 mg tablet 0.5 mg PO Q6H PRN (Reason: Anxiety) Patient Comments: Patient states she hasn't statrted taking vitamin E 670 mg (1,000 unit) Capsule 670 mg PO DAILY ibuprofen [Advil] 200 mg Tablet 400 mg PO Q6H PRN (Reason: Fever Or Pain) coenzyme Q10 [CoQ-10] 100 mg Capsule 100 mg PO DAILY omeprazole magnesium [Prilosec OTC] 20 mg Tablet,Delayed Release (Dr/Ec) 20 mg PO DAILY PRN (Reason: Acid Reflux) Fish Oil 100-160-1,000 mg Capsule 1 cap PO DAILY Discontinued acetaminophen [Tylenol Extra Strength] 500 mg Tablet 1,000 mg PO Q6H PRN (Reason: Fever Or Pain) Discharge Order = DC NOW: Discharge Order (Routine); Ordered 05/31/25 Ordered By: Keiko Melendrez Referrals: Raymond Noyola MD [Primary Care Provider, Internal Medicine] - 06/03/25 2:40 pm Alice Clemons FNP [Nurse Practitioner, Cardiology] - 06/11/25 9:30 am Patient Instructions: Aspirin (By mouth), Isosorbide Mononitrate (By mouth), Heart Palpitations, Heart Attack (DC), Alpha-gal Syndrome (DC), Opioid Safety, Patient Portal & Moni Instructions Discharge Attestations Time Spent in Discharge Care*: greater than 30 min Quality Metrics Clinical Quality Measures [ No reported AMI, CVA or VTE this stay] Coding Level of Care Code Acute Code for Chg Fwd Diagnoses NSTEMI (non-ST elevated myocardial infarction) I21.4 Arteriosclerotic heart disease (ASHD) I25.10 Essential (primary) hypertension I10 Mixed hyperlipidemia E78.2 S/P TAVR (transcatheter aortic valve replacement) Z95.2 Palpitations R00.2 Allergy to alpha-gal Z91.018 H/O aortic valve replacement Z95.2 DVT (deep venous thrombosis) I82.409 Type 2 diabetes mellitus without complication, without long-term current use of insulin E11.9 Diabetes mellitus watermaster insulin use: without detention use
[2025-05-31 09:05] VITALS: BP 178/95
[2025-05-31] MEDS: pantoprazole 40 mg SDV IVP (09:12)
--- NOTE | 2025-05-31 10:36 | P.PN_ITS ---
<Statement entered by Isrrael Mayers MD - 05/31/25 13:36> Patient was evaluated and cared for in conjunction with an advanced practice practitioner. I personally saw the patient and reviewed the chart and all pertinent data. I discussed the patient in detail with the advanced practice practitioner. Please see their note for complete assessment and agreed upon plan of care for the patient. Subjective 2 Subjective: Coronary angiogram performed yesterday, no complications with right femoral cath site. Small caliber diagonal with significant stenosis not amenable to intervention, luminal irregularity of the LAD, left circumflex, RCA. Not hemodynamically significant left main stenosis. Medical management advised. Vitals/I&O/Wt Last Vital Signs Temp 97.6 F 05/31/25 07:20 Pulse 65 05/31/25 07:20 Resp 13 05/31/25 07:20 BP 178/95 05/31/25 09:05 Pulse Ox 94 05/31/25 07:20 O2 Del Method Room Air 05/31/25 04:00 05/30/25 05/31/25 05/31/25 22:59 06:59 14:59 Intake Total 500 / 1500 1000 / 1500 240 / 240 Balance 500 / 1500 1000 / 1500 240 / 240 Weight last 48 hrs Weight 189 lb 9.6 oz Weight 183 lb 9.6 oz Weight 184 lb Physical Exam 2 Const: COMMON NORMALS: no acute distress and patient oriented x3 GENERAL APPEARANCE: cooperative ORIENTATION/CONSCIOUSNESS: Yes awake, Yes oriented to person, Yes oriented to place and Yes oriented to time Chest: COMMONS NORMALS: normal inspection of the chest and normal palpation of entire chest wall CHEST: Yes Symmetrical chest wall rise Resp: COMMON NORMALS: normal respiratory effort, No retractions, No use of accessory muscles and clear to auscultation bilaterally AUSCULTATION: clear to auscultation bilaterally Cardio: COMMON NORMALS: regular rate, regular rhythm, S1 normal heart sound present, S2 normal heart sound present, No gallops present (Cardio), No clicks present (Cardio), No murmurs present (Cardio) and No rub (Cardio) RATE: r egular rate RHYTHM: regular rhythm HEART SOUNDS: S1 normal heart sound present and S2 normal heart sound present PERIPHERAL PULSES: radial pulses present positive right 2+ and femoral pulses present positive right 2+ Neuro: COMMON NORMALS: patient oriented x3 and moves all extremities S ENSORIUM/ORIENTATION: Yes oriented to person, Yes oriented to place and Yes oriented to time Skin: WOUNDS: Yes surgical site (no hematoma palpable) Details: no odor Data 05/31/25 02:16 05/31/25 02:16 A&P Assessment and plan 1. NSTEMI (non-ST elevated myocardial infarction): 2. Arteriosclerotic heart disease (ASHD): 3. Essential (primary) hypertension: 4. Mixed hyperlipidemia: 5. S/P TAVR (transcatheter aortic valve replacement): 6. Palpitations: 7. Allergy to alpha-gal: Plan: Blood pressure overnight and this morning still uncontrolled. Will add amlodipine 2.5 mg daily, if blood pressure improved by noon can consider discharge home. PDMP PDMP Reviewed: Not Reviewed Attestations 2 Medical Necessity Statement*: Possible discharge home Coding Level of Care Code Acute Code for [facility] Fwd Diagnoses NSTEMI (non-ST elevated myocardial infarction) I21.4 Arteriosclerotic heart disease (ASHD) I25.10 Essential (primary) hypertension I10 Mixed hyperlipidemia E78.2 S/P TAVR (transcatheter aortic valve replacement) Z95.2 Palpitations R00.2 Allergy to alpha-gal Z91.018
[2025-05-31 12:02] VITALS: BP 123/54; PULSE 17; RESP 17; O2SAT 96
--- NOTE | 2025-05-31 13:15 | PC.SOCIAL ---
IMM Update pg 2 of IMM updated and reviewed w/ patient. Copy provided and copy dated, initialed and placed in chart.
== END 2025-05-31 13:08 | disposition home or self-care (01) | DRG 282 ==
LOC: ER 08:35 → CSU 09:08
PROVIDERS: Internal Medicine Cardiovascular Disease; Admitting Provider Family Medicine; Emergency Provider Family Medicine; PCP Internal Medicine; Visit Provider Student in an Organized Health Care Education/Training Program
PROC: 4A023N7 Measurement of Cardiac Sampling and Pressure, Left Heart, Percutaneous Approach (ICD-10-PCS; principal; 2025-05-30 10:30)
DX: T82.855A Stenosis of coronary artery stent, initial encounter (principal); I21.4 Non-ST elevation (NSTEMI) myocardial infarction; Y71.8 Miscellaneous cardiovascular devices associated with adverse incidents, not elsewhere classified; E78.2 Mixed hyperlipidemia; I25.10 Atherosclerotic heart disease of native coronary artery without angina pectoris; R00.2 Palpitations; E11.9 Type 2 diabetes mellitus without complications; I10 Essential (primary) hypertension; I44.7 Left bundle-branch block, unspecified; I27.20 Pulmonary hypertension, unspecified; K21.9 Gastro-esophageal reflux disease without esophagitis; K76.0 Fatty (change of) liver, not elsewhere classified; F41.9 Anxiety disorder, unspecified; Z79.02 Long term (current) use of antithrombotics/antiplatelets; Z95.5 Presence of coronary angioplasty implant and graft; Z95.3 Presence of xenogenic heart valve; Z91.014 Allergy to mammalian meats; Z82.49 Family history of ischemic heart disease and other diseases of the circulatory system; Z82.3 Family history of stroke
CPT/HCPCS: 36415; 36416; 71045; 80053; 80061; 81003; 82962; 83036; 83735; 83880; 84100; 84145; 84443; 84484; 85025; 85730; 86140; 92523; 92610; 93005; 93306; 93458; 93970; 94664; 96365; 96374; 99152; 99153; 99291; 99292; C1760; C1769; C1887; C1894; G0378; J0360; J0583; J1200; J1644; J2250; J2270; J2405; J2470; J3010; J3490; J7030; J7040; J9999; Q9967

== ENCOUNTER → 2025-06-11 09:28 | Outpatient (BNVA) | payer MEDICARE, SELFPAY | PROVIDERS: PCP Family Medicine; Visit Provider Internal Medicine Cardiovascular Disease | DX: R00.2 Palpitations (principal); E78.2 Mixed hyperlipidemia; I10 Essential (primary) hypertension; I25.10 Atherosclerotic heart disease of native coronary artery without angina pectoris; Z79.02 Long term (current) use of antithrombotics/antiplatelets; Z79.82 Long term (current) use of aspirin; Z95.5 Presence of coronary angioplasty implant and graft; Z95.2 Presence of prosthetic heart valve; R00.0 Tachycardia, unspecified | CPT/HCPCS: 99214 ==